=== PATIENT | female | born 1955 | race Hispanic/Latino ===

== ENCOUNTER 2016-08-14 23:37 | Inpatient (IN) | payer MEDICARE ==
[2016-08-14 23:56] VITALS: BMI 38.9
[2016-08-15] MEDS: Linezolid 600 mg in D5W 300 ml 300 ML IVPB SCH ×2 (05:25→17:07)
[2016-08-15] MEDS: Levothyroxine 100 MCG TAB PO SCH (05:58)
[2016-08-15 08:54] VITALS: RESP 20
[2016-08-15] MEDS: Acetaminophen-Codeine 300/30 mg Tab PO PRN ×2 (08:54→19:54)
[2016-08-15] MEDS: Lactobacillus Acidophilus 500 MU Cap PO SCH ×2 (08:55→17:05)
[2016-08-15] MEDS: Enoxaparin 40 mg Syringe SC SCH (08:56)
[2016-08-15] MEDS: Ergocalciferol 50,000 Intl Units Cap PO SCH (08:57)
[2016-08-15] MEDS ORDERED: Patient's Own Med (Ferrous Sulfate [Feosol] 324 MG) PO SCH (09:00)
--- NOTE | 2016-08-15 19:39 | CP.PCM.HP ---
History of Present Illness - History of Present Illness History of Present Illness: 61yo female hx lupus, sever OA, bilateral knee replacements . She presents in ER with c/o new pain to left knee, inability to rise from bed, states had acute injury 2 days ago to left knee attempting to ascend her basement stairs. States did not fall but twisted knee and now cannot fully actively extend leg to arise from seated position. Taking over the counter non steroidal at home without relief. Uses walker at home but she is unable to arise from bed even with walker. She noticed a progressive edema and erythema in both knee but worse in the rt. Subsequent test reveled a fx of the t patella and possible septic arthritis. to SNF to continue present care. Present on Admission - Present on Admission Any Indicators Present on Admission: No Review of Systems - Constitutional Constitutional: As Per HPI - EENT Eyes: As Per HPI Nose/Mouth/Throat: As Per HPI - Cardiovascular Cardiovascular: As Per HPI - Respiratory Respiratory: As Per HPI - Gastrointestinal Gastrointestinal: As Per HPI - Musculoskeletal Musculoskeletal: As Per HPI - Integumentary Integumentary: As Per HPI - Neurological Neurological: As Per HPI - Psychiatric Psychiatric: As Per HPI Past Patient History - Infectious Disease Hx of Infectious Diseases: None - Past Medical History & Family History Past Medical History?: Yes - Past Social History Smoking Status: Never Smoked - CARDIAC Hx Hypercholesterolemia: Yes Hx Hypertension: Yes - PULMONARY Hx Chronic Obstructive Pulmonary Disease (COPD): Yes - NEUROLOGICAL Hx Neurological Disorder: Yes Other/Comment: NUMBNESS.TINGLING TOES - HEENT Hx HEENT Problems: Yes Hx Cataracts: Yes - RENAL Hx Chronic Kidney Disease: Yes Hx Kidney Stones: Yes - ENDOCRINE/METABOLIC Hx Hypothyroidism: Yes - HEMATOLOGICAL/ONCOLOGICAL Hx Anemia: Yes Hx Human Immunodeficiency Virus (HIV): No - INTEGUMENTARY Hx Dermatological Problems: No - MUSCULOSKELETAL/RHEUMATOLOGICAL Hx Arthritis: Yes Hx Rheumatoid Arthritis: Yes - GASTROINTESTINAL Hx Gastritis: Yes - GENITOURINARY/GYNECOLOGICAL Hx Genitourinary Disorders: No - PSYCHIATRIC Hx Psychophysiologic Disorder: No Hx Substance Use: No - SURGICAL HISTORY Hx Surgeries: Yes Hx Herniorrhaphy: Yes (UMBERICAL HERNIAX2) Hx Joint Replacement: Yes (TOTAL LEFT KNEE REPLACEMENT 06/03/2014) Other/Comment: THYROIDECTOMY 2003. LASER SX FOR KIDNEY STONE - ANESTHESIA Hx Anesthesia: Yes Hx Anesthesia Reactions: No Hx Malignant Hyperthermia: No Has any member of the family had a problem w/ anesthesia?: No Meds Allergies/Adverse Reactions: Allergies Allergy/AdvReac Type Severity Reaction Status Date / Time prednisone Allergy SWELLING Verified 04/17/16 15:40 Physical Exam - Head Exam Head Exam: ATRAUMATIC, NORMAL INSPECTION. absent: NORMOCEPHALIC - Eye Exam Eye Exam: Normal appearance - ENT Exam ENT Exam: Mucous Membranes Moist - Neck Exam Neck exam: Positive for: Normal Inspection - Respiratory Exam Respiratory Exam: Clear to Auscultation Bilateral - Cardiovascular Exam Cardiovascular Exam: REGULAR RHYTHM, +S1, +S2 - GI/Abdominal Exam GI & Abdominal Exam: Normal Bowel Sounds - Extremities Exam Extremities exam: Positive for: normal inspection - Neurological Exam Neurological exam: Alert, CN II-XII Intact, Normal Gait, Oriented x3 - Psychiatric Exam Psychiatric exam: Normal Mood Results - Vital Signs Recent Vital Signs: Last Vital Signs Temp 98.5 F 08/15/16 16:03 Pulse 91 H 08/15/16 16:03 Resp 20 08/15/16 16:03 BP 135/68 08/15/16 16:03 Pulse Ox 96 08/15/16 16:03 Assessment & Plan (1) Fracture, patella Status: Acute (2) Septic arthritis Status: Acute (3) Hypothyroid Status: Chronic (4) Osteoarthritis Status: Chronic (5) S/P knee replacement Status: Chronic (6) SLE (systemic lupus erythematosus) Status: Chronic
[2016-08-16] MEDS: Levothyroxine 100 MCG TAB PO SCH (06:15)
[2016-08-16] MEDS: Linezolid 600 mg in D5W 300 ml 300 ML IVPB SCH ×2 (06:17→17:14)
[2016-08-16 07:56] LABS: HEMATOCRIT 36.2 % (34.0-47.0); MEAN CELL VOLUME 93.2 fl (81.0-99.0); MEAN CORPUSCULAR HEMOGLOBIN 31.5 pg (27.0-31.0); MEAN CORPUSCULAR HGB CONC 33.8 g/dL (33.0-37.0); RED CELL DISTRIBUTION WIDTH 12.9 % (11.5-14.5); WHITE BLOOD COUNT 3.7 K/uL (4.8-10.8)
[2016-08-16 08:14] LABS: BLOOD UREA NITROGEN 18 mg/dl (7-17); CALCIUM 8.8 mg/dL (8.4-10.2); CARBON DIOXIDE 26 mmol/L (22-30); CHLORIDE 100 mmol/L (98-107); GFR AFRICAN-AMERICAN > 60; GLUCOSE,RANDOM 105 mg/dL (65-105); POTASSIUM 4.1 MMOL/L (3.6-5.0); SODIUM 142 mmol/l (132-148)
[2016-08-16] MEDS: Lactobacillus Acidophilus 500 MU Cap PO SCH ×2 (08:53→17:13)
[2016-08-16] MEDS: Enoxaparin 40 mg Syringe SC SCH (08:55)
[2016-08-16] MEDS: Acetaminophen-Codeine 300/30 mg Tab PO PRN (10:05)
--- NOTE | 2016-08-16 12:56 | CP.PCM.PN ---
Subjective - Date & Time of Evaluation Date of Evaluation: 08/16/16 Time of Evaluation: 12:56 - Subjective Subjective: Comfortable Objective - Vital Signs/Intake and Output Vital Signs (last 24 hours): Temp Pulse Resp BP Pulse Ox 97.2 F L 67 20 122/57 L 96 08/16/16 07:50 08/16/16 08:53 08/16/16 07:50 08/16/16 08:53 08/16/16 07:50 - Medications Medications: Current Medications Acetaminophen/Codeine Phosphate (Tylenol/Codeine 300 Mg/30 Mg) 1 tab PO Q6 PRN PRN Reason: Pain, moderate (4-7) Last Admin: 08/16/16 10:05 Dose: 1 tab Amlodipine Besylate (Norvasc) 2.5 mg PO DAILY [facility] Last Admin: 08/16/16 08:53 Dose: 2.5 mg Artificial Tears (Artificial Tears) 2 drop OU Q4 PRN PRN Reason: Dry eyes Aspirin (Ecotrin) 81 mg PO DAILY [facility] Last Admin: 08/16/16 08:53 Dose: 81 mg Enoxaparin Sodium (Lovenox) 40 mg SC DAILY [facility] PRN Reason: Protocol Last Admin: 08/16/16 08:55 Dose: 40 mg Ergocalciferol (Drisdol 50,000 Intl Units Cap) 1 cap PO QWK [facility] Last Admin: 08/15/16 08:57 Dose: 1 cap Ferrous Sulfate (Feosol) 325 mg PO TID [facility] Last Admin: 08/16/16 12:22 Dose: 325 mg Folic Acid (Folic Acid) 1 mg PO DAILY [facility] Last Admin: 08/16/16 08:53 Dose: 1 mg Hydroxychloroquine Sulfate (Plaquenil) 200 mg PO DAILY [facility] Last Admin: 08/16/16 08:53 Dose: 200 mg Hydroxyzine HCl (Atarax) 10 mg PO DAILY [facility] Last Admin: 08/16/16 08:52 Dose: 10 mg Linezolid (Zyvox 600mg/300ml D5w) 300 mls @ 300 mls/hr IVPB Q12@0500,1700 [facility] Last Admin: 08/16/16 06:17 Dose: 300 mls/hr Lactobacillus Acidophilus (Bacid Acidophilus) 1 cap PO BID [facility] Last Admin: 08/16/16 08:53 Dose: 1 cap Levothyroxine Sodium (Synthroid) 100 mcg PO DAILY@0630 [facility] Last Admin: 08/16/16 06:15 Dose: 100 mcg Nystatin/Triamcinolone Acetonide (Mycolog Ii Oint) 1 applic TOP TID [facility] Thiamine HCl (Vitamin B1 Tab) 100 mg PO DAILY [facility] Last Admin: 08/16/16 08:53 Dose: 100 mg - Labs Labs: 08/16/16 05:30 08/16/16 05:30 - Constitutional Appears: Chronically Ill - Head Exam Head Exam: ATRAUMATIC, NORMAL INSPECTION, NORMOCEPHALIC - Eye Exam Eye Exam: Normal appearance - ENT Exam ENT Exam: Mucous Membranes Moist - Respiratory Exam Respiratory Exam: Clear to Ausculation Bilateral - Cardiovascular Exam Cardiovascular Exam: REGULAR RHYTHM, +S1, +S2 - Extremities Exam Additional comments: soft cast in place. - Neurological Exam Neurological Exam: Alert, Awake, CN II-XII Intact, Oriented x3 - Psychiatric Exam Psychiatric exam: Normal Affect Assessment and Plan (1) Fracture, patella Status: Acute (2) Septic arthritis Status: Acute (3) Hypothyroid Status: Chronic (4) Osteoarthritis Status: Chronic (5) S/P knee replacement Status: Chronic (6) SLE (systemic lupus erythematosus) Status: Chronic - Assessment and Plan (Free Text) Plan: Continue present rx.
[2016-08-16] MEDS: Artificial Tears Opht Soln OU PRN (15:02)
[2016-08-16] MEDS: Mycolog II OINT TOP SCH ×2 (15:02→17:23)
[2016-08-17] MEDS: Linezolid 600 mg in D5W 300 ml 300 ML IVPB SCH ×2 (05:20→16:50)
[2016-08-17] MEDS: Levothyroxine 100 MCG TAB PO SCH (06:40)
[2016-08-17] MEDS: Lactobacillus Acidophilus 500 MU Cap PO SCH ×2 (08:11→16:51)
[2016-08-17] MEDS: Mycolog II OINT TOP SCH ×3 (08:12→16:51)
[2016-08-17] MEDS: Enoxaparin 40 mg Syringe SC SCH (08:12)
--- NOTE | 2016-08-17 12:36 | CP.PCM.CON ---
History of Present Illness - History of Present Illness History of Present Illness: patient is a 61 year old female admitted for subacute rehab , status post right arthroscopy, with previous history of bilateral knee replacement and lupus. Patient apparently presented with pain and odema, and difficulty in ambulation Review of Systems - Musculoskeletal Musculoskeletal: Abnormal Gait, Arthralgias, Joint Swelling, Limited Range of Motion, Muscle Weakness Past Patient History - Infectious Disease Hx of Infectious Diseases: None - Past Medical History & Family History Past Medical History?: Yes - Past Social History Smoking Status: Never Smoked - CARDIAC Hx Hypercholesterolemia: Yes Hx Hypertension: Yes - PULMONARY Hx Chronic Obstructive Pulmonary Disease (COPD): Yes - NEUROLOGICAL Hx Neurological Disorder: Yes Other/Comment: NUMBNESS.TINGLING TOES - HEENT Hx HEENT Problems: Yes Hx Cataracts: Yes - RENAL Hx Chronic Kidney Disease: Yes Hx Kidney Stones: Yes - ENDOCRINE/METABOLIC Hx Hypothyroidism: Yes - HEMATOLOGICAL/ONCOLOGICAL Hx Anemia: Yes Hx Human Immunodeficiency Virus (HIV): No - INTEGUMENTARY Hx Dermatological Problems: No - MUSCULOSKELETAL/RHEUMATOLOGICAL Hx Arthritis: Yes Hx Rheumatoid Arthritis: Yes - GASTROINTESTINAL Hx Gastritis: Yes - GENITOURINARY/GYNECOLOGICAL Hx Genitourinary Disorders: No - PSYCHIATRIC Hx Psychophysiologic Disorder: No Hx Substance Use: No - SURGICAL HISTORY Hx Surgeries: Yes Hx Herniorrhaphy: Yes (UMBERICAL HERNIAX2) Hx Joint Replacement: Yes (TOTAL LEFT KNEE REPLACEMENT 06/03/2014) Other/Comment: THYROIDECTOMY 2002. LASER SX FOR KIDNEY STONE - ANESTHESIA Hx Anesthesia: Yes Hx Anesthesia Reactions: No Hx Malignant Hyperthermia: No Has any member of the family had a problem w/ anesthesia?: No Meds Allergies/Adverse Reactions: Allergies Allergy/AdvReac Type Severity Reaction Status Date / Time prednisone Allergy SWELLING Verified 04/17/16 15:40 - Medications Medications: Current Medications Acetaminophen/Codeine Phosphate (Tylenol/Codeine 300 Mg/30 Mg) 1 tab PO Q6 PRN PRN Reason: Pain, moderate (4-7) Last Admin: 08/16/16 10:05 Dose: 1 tab Amlodipine Besylate (Norvasc) 2.5 mg PO DAILY [facility] Last Admin: 08/17/16 08:12 Dose: 2.5 mg Artificial Tears (Artificial Tears) 2 drop OU Q4 PRN PRN Reason: Dry eyes Last Admin: 08/16/16 15:02 Dose: 2 unit Aspirin (Ecotrin) 81 mg PO DAILY [facility] Last Admin: 08/17/16 08:11 Dose: 81 mg Enoxaparin Sodium (Lovenox) 40 mg SC DAILY [facility] PRN Reason: Protocol Last Admin: 08/17/16 08:12 Dose: 40 mg Ergocalciferol (Drisdol 50,000 Intl Units Cap) 1 cap PO QWK [facility] Last Admin: 08/15/16 08:57 Dose: 1 cap Ferrous Sulfate (Feosol) 325 mg PO TID [facility] Last Admin: 08/17/16 08:11 Dose: 325 mg Folic Acid (Folic Acid) 1 mg PO DAILY [facility] Last Admin: 08/17/16 08:12 Dose: 1 mg Hydroxychloroquine Sulfate (Plaquenil) 200 mg PO DAILY [facility] Last Admin: 08/17/16 08:13 Dose: 200 mg Hydroxyzine HCl (Atarax) 10 mg PO DAILY [facility] Last Admin: 08/17/16 08:11 Dose: 10 mg Linezolid (Zyvox 600mg/300ml D5w) 300 mls @ 300 mls/hr IVPB Q12@0500,1700 [facility] Last Admin: 08/17/16 05:20 Dose: 300 mls/hr Lactobacillus Acidophilus (Bacid Acidophilus) 1 cap PO BID [facility] Last Admin: 08/17/16 08:11 Dose: 1 cap Levothyroxine Sodium (Synthroid) 100 mcg PO DAILY@0630 [facility] Last Admin: 08/17/16 06:40 Dose: 100 mcg Nystatin/Triamcinolone Acetonide (Mycolog Ii Oint) 1 applic TOP TID [facility] Last Admin: 08/17/16 08:12 Dose: 1 applic Thiamine HCl (Vitamin B1 Tab) 100 mg PO DAILY [facility] Last Admin: 08/17/16 08:13 Dose: 100 mg Physical Exam - Head Exam Head Exam: ATRAUMATIC, NORMAL INSPECTION - Eye Exam Eye Exam: EOMI, Normal appearance - ENT Exam ENT Exam: Mucous Membranes Moist, Normal Exam - Respiratory Exam Respiratory Exam: NORMAL BREATHING PATTERN - Cardiovascular Exam Cardiovascular Exam: REGULAR RHYTHM - GI/Abdominal Exam GI & Abdominal Exam: Normal Bowel Sounds - Exam External exam: NORMAL EXTERNAL EXAM - Extremities Exam Extremities exam: Positive for: normal inspection Additional comments: limited range of motion and strength of right leg sensation grossly intact - Back Exam Back exam: NORMAL INSPECTION - Neurological Exam Neurological exam: Alert, CN II-XII Intact, Reflexes Normal - Psychiatric Exam Psychiatric exam: Normal Affect, Normal Mood - Skin Skin Exam: Dry, Warm Results - Vital Signs Recent Vital Signs: Last Vital Signs Temp 98.2 F 08/17/16 08:20 Pulse 70 08/17/16 08:20 Resp 20 08/17/16 08:20 BP 120/78 08/17/16 08:20 Pulse Ox 100 08/17/16 08:20 - Labs Result Diagrams: 08/16/16 05:30 08/16/16 05:30 Assessment & Plan (1) DVT (deep venous thrombosis) Status: Acute (2) Fracture, patella Assessment and Plan: patient status post right sided arthroscopy, tricompartmental synovetomy for subacute rehab program. precautions of TTWB and additional precautions as per Orthopedic physician. Monitor skin, and pain level. Goals for Modified Independent eventually. patient for physical and occupational therapy program Status: Acute (3) Knee injury Status: Acute (4) Septic arthritis Status: Acute (5) Fever and chills Status: Acute (6) UTI (urinary tract infection) Status: Acute (7) Hypothyroid Status: Chronic (8) Osteoarthritis Status: Chronic
[2016-08-17] MEDS: Acetaminophen-Codeine 300/30 mg Tab PO PRN (22:20)
[2016-08-18] MEDS: Linezolid 600 mg in D5W 300 ml 300 ML IVPB SCH ×2 (04:49→17:18)
[2016-08-18] MEDS: Levothyroxine 100 MCG TAB PO SCH (05:47)
[2016-08-18] MEDS: Acetaminophen-Codeine 300/30 mg Tab PO PRN ×2 (08:51→21:26)
[2016-08-18] MEDS: Enoxaparin 40 mg Syringe SC SCH (08:51)
[2016-08-18] MEDS: Mycolog II OINT TOP SCH ×3 (08:53→17:18)
[2016-08-18] MEDS: Lactobacillus Acidophilus 500 MU Cap PO SCH ×2 (08:56→17:17)
[2016-08-18] MEDS: Artificial Tears Opht Soln OU PRN (12:33)
--- NOTE | 2016-08-18 14:35 | CP.PCM.PN ---
Subjective - Date & Time of Evaluation Date of Evaluation: 08/18/16 Time of Evaluation: 12:00 - Subjective Subjective: patient no knee pain, mild right shoulder pain Objective - Vital Signs/Intake and Output Vital Signs (last 24 hours): Temp Pulse Resp BP Pulse Ox 97.9 F 60 20 150/75 99 08/18/16 08:33 08/18/16 08:52 08/18/16 08:33 08/18/16 08:52 08/18/16 08:33 - Medications Medications: Current Medications Acetaminophen/Codeine Phosphate (Tylenol/Codeine 300 Mg/30 Mg) 1 tab PO Q6 PRN PRN Reason: Pain, moderate (4-7) Last Admin: 08/18/16 08:51 Dose: 1 tab Amlodipine Besylate (Norvasc) 2.5 mg PO DAILY [facility] Last Admin: 08/18/16 08:52 Dose: 2.5 mg Artificial Tears (Artificial Tears) 2 drop OU Q4 PRN PRN Reason: Dry eyes Last Admin: 08/18/16 12:33 Dose: 2 unit Aspirin (Ecotrin) 81 mg PO DAILY [facility] Last Admin: 08/18/16 08:52 Dose: 81 mg Enoxaparin Sodium (Lovenox) 40 mg SC DAILY [facility] PRN Reason: Protocol Last Admin: 08/18/16 08:51 Dose: 40 mg Ergocalciferol (Drisdol 50,000 Intl Units Cap) 1 cap PO QWK [facility] Last Admin: 08/15/16 08:57 Dose: 1 cap Ferrous Sulfate (Feosol) 325 mg PO TID [facility] Last Admin: 08/18/16 12:28 Dose: 325 mg Folic Acid (Folic Acid) 1 mg PO DAILY [facility] Last Admin: 08/18/16 08:52 Dose: 1 mg Hydroxychloroquine Sulfate (Plaquenil) 200 mg PO DAILY [facility] Last Admin: 08/18/16 08:52 Dose: 200 mg Hydroxyzine HCl (Atarax) 10 mg PO DAILY [facility] Last Admin: 08/18/16 08:52 Dose: 10 mg Linezolid (Zyvox 600mg/300ml D5w) 300 mls @ 300 mls/hr IVPB Q12@0500,1700 [facility] Last Admin: 08/18/16 04:49 Dose: 300 mls/hr Lactobacillus Acidophilus (Bacid Acidophilus) 1 cap PO BID [facility] Last Admin: 08/18/16 08:56 Dose: 1 cap Levothyroxine Sodium (Synthroid) 100 mcg PO DAILY@0630 [facility] Last Admin: 08/18/16 05:47 Dose: 100 mcg Nystatin/Triamcinolone Acetonide (Mycolog Ii Oint) 1 applic TOP TID [facility] Last Admin: 08/18/16 08:53 Dose: 1 applic Thiamine HCl (Vitamin B1 Tab) 100 mg PO DAILY [facility] Last Admin: 08/18/16 08:52 Dose: 100 mg - Labs Labs: 08/16/16 05:30 08/16/16 05:30 - Head Exam Head Exam: ATRAUMATIC, NORMAL INSPECTION, NORMOCEPHALIC - Eye Exam Eye Exam: EOMI, Normal appearance, PERRL Pupil Exam: NORMAL ACCOMODATION - ENT Exam ENT Exam: Mucous Membranes Moist, Normal Exam - Respiratory Exam Respiratory Exam: NORMAL BREATHING PATTERN - Cardiovascular Exam Cardiovascular Exam: REGULAR RHYTHM - GI/Abdominal Exam GI & Abdominal Exam: Normal Bowel Sounds - Exam External exam: NORMAL EXTERNAL EXAM - Extremities Exam Extremities Exam: Normal Capillary Refill - Back Exam Back Exam: NORMAL INSPECTION - Neurological Exam Neurological Exam: Alert, Awake Neuro motor strength exam: Left Upper Extremity: 4, Right Upper Extremity: 4, Left Lower Extremity: 4, Right Lower Extremity: 3 - Psychiatric Exam Psychiatric exam: Normal Affect, Normal Mood - Skin Skin Exam: Dry, Intact, Warm Additional comments: right knee healing with sutures Assessment and Plan (1) DVT (deep venous thrombosis) Status: Acute (2) Fracture, patella Assessment & Plan: status post arthroscopy sutures healing in right knee consider cleaning with normal saline and dry dressing Lidoderm patch for right shoulder Status: Acute (3) Knee injury Status: Acute (4) Septic arthritis Status: Acute (5) Fever and chills Status: Acute (6) UTI (urinary tract infection) Status: Acute (7) Hypothyroid Status: Chronic (8) Osteoarthritis Status: Chronic
--- NOTE | 2016-08-18 15:04 | CP.PCM.PN ---
Subjective - Date & Time of Evaluation Date of Evaluation: 08/18/16 Time of Evaluation: 15:04 - Subjective Subjective: Comfortable. Objective - Vital Signs/Intake and Output Vital Signs (last 24 hours): Temp Pulse Resp BP Pulse Ox 97.9 F 60 20 150/75 99 08/18/16 08:33 08/18/16 08:52 08/18/16 08:33 08/18/16 08:52 08/18/16 08:33 - Medications Medications: Current Medications Acetaminophen/Codeine Phosphate (Tylenol/Codeine 300 Mg/30 Mg) 1 tab PO Q6 PRN PRN Reason: Pain, moderate (4-7) Last Admin: 08/18/16 08:51 Dose: 1 tab Amlodipine Besylate (Norvasc) 2.5 mg PO DAILY [facility] Last Admin: 08/18/16 08:52 Dose: 2.5 mg Artificial Tears (Artificial Tears) 2 drop OU Q4 PRN PRN Reason: Dry eyes Last Admin: 08/18/16 12:33 Dose: 2 unit Aspirin (Ecotrin) 81 mg PO DAILY [facility] Last Admin: 08/18/16 08:52 Dose: 81 mg Enoxaparin Sodium (Lovenox) 40 mg SC DAILY [facility] PRN Reason: Protocol Last Admin: 08/18/16 08:51 Dose: 40 mg Ergocalciferol (Drisdol 50,000 Intl Units Cap) 1 cap PO QWK [facility] Last Admin: 08/15/16 08:57 Dose: 1 cap Ferrous Sulfate (Feosol) 325 mg PO TID [facility] Last Admin: 08/18/16 12:28 Dose: 325 mg Folic Acid (Folic Acid) 1 mg PO DAILY [facility] Last Admin: 08/18/16 08:52 Dose: 1 mg Hydroxychloroquine Sulfate (Plaquenil) 200 mg PO DAILY [facility] Last Admin: 08/18/16 08:52 Dose: 200 mg Hydroxyzine HCl (Atarax) 10 mg PO DAILY [facility] Last Admin: 08/18/16 08:52 Dose: 10 mg Linezolid (Zyvox 600mg/300ml D5w) 300 mls @ 300 mls/hr IVPB Q12@0500,1700 [facility] Last Admin: 08/18/16 04:49 Dose: 300 mls/hr Lactobacillus Acidophilus (Bacid Acidophilus) 1 cap PO BID [facility] Last Admin: 08/18/16 08:56 Dose: 1 cap Levothyroxine Sodium (Synthroid) 100 mcg PO DAILY@0630 [facility] Last Admin: 08/18/16 05:47 Dose: 100 mcg Lidocaine (Lidoderm) 1 ea TD DAILY [facility] Nystatin/Triamcinolone Acetonide (Mycolog Ii Oint) 1 applic TOP TID [facility] Last Admin: 08/18/16 08:53 Dose: 1 applic Thiamine HCl (Vitamin B1 Tab) 100 mg PO DAILY [facility] Last Admin: 08/18/16 08:52 Dose: 100 mg - Labs Labs: 08/16/16 05:30 08/16/16 05:30 - Constitutional Appears: Chronically Ill - Head Exam Head Exam: ATRAUMATIC, NORMAL INSPECTION, NORMOCEPHALIC - Eye Exam Eye Exam: Normal appearance - ENT Exam ENT Exam: Mucous Membranes Moist - Neck Exam Neck Exam: Full ROM - Respiratory Exam Respiratory Exam: Clear to Ausculation Bilateral - Cardiovascular Exam Cardiovascular Exam: REGULAR RHYTHM, +S1, +S2 - GI/Abdominal Exam GI & Abdominal Exam: Normal Bowel Sounds - Neurological Exam Neurological Exam: Alert, Awake, Oriented x3 - Psychiatric Exam Psychiatric exam: Normal Affect Assessment and Plan (1) Fracture, patella Status: Acute (2) Septic arthritis Status: Acute (3) Hypothyroid Status: Chronic (4) Osteoarthritis Status: Chronic (5) S/P knee replacement Status: Chronic (6) SLE (systemic lupus erythematosus) Status: Chronic - Assessment and Plan (Free Text) Plan: Continue present rx.
[2016-08-19] MEDS: Linezolid 600 mg in D5W 300 ml 300 ML IVPB SCH (04:59)
[2016-08-19] MEDS: Levothyroxine 100 MCG TAB PO SCH (06:39)
[2016-08-19] MEDS: Lidocaine 5% Patch TD SCH (08:43)
[2016-08-19] MEDS: Enoxaparin 40 mg Syringe SC SCH (08:44)
[2016-08-19] MEDS: Mycolog II OINT TOP SCH ×2 (08:45→12:17)
[2016-08-19] MEDS: Lactobacillus Acidophilus 500 MU Cap PO SCH ×2 (08:45→16:59)
[2016-08-19] MEDS: Acetaminophen-Codeine 300/30 mg Tab PO PRN ×2 (08:48→22:13)
--- NOTE | 2016-08-19 12:26 | CP.PCM.PN ---
Subjective - Date & Time of Evaluation Date of Evaluation: 08/19/16 Time of Evaluation: 14:18 - Subjective Subjective: No new c/o Objective - Vital Signs/Intake and Output Vital Signs (last 24 hours): Temp Pulse Resp BP Pulse Ox 97.0 F L 75 20 147/78 100 08/19/16 08:20 08/19/16 08:44 08/19/16 08:20 08/19/16 08:44 08/19/16 08:20 - Medications Medications: Current Medications Acetaminophen/Codeine Phosphate (Tylenol/Codeine 300 Mg/30 Mg) 1 tab PO Q6 PRN PRN Reason: Pain, moderate (4-7) Last Admin: 08/19/16 08:48 Dose: 1 tab Amlodipine Besylate (Norvasc) 2.5 mg PO DAILY [facility] Last Admin: 08/19/16 08:44 Dose: 2.5 mg Artificial Tears (Artificial Tears) 2 drop OU Q4 PRN PRN Reason: Dry eyes Last Admin: 08/18/16 12:33 Dose: 2 unit Aspirin (Ecotrin) 81 mg PO DAILY [facility] Last Admin: 08/19/16 08:44 Dose: 81 mg Enoxaparin Sodium (Lovenox) 40 mg SC DAILY [facility] PRN Reason: Protocol Last Admin: 08/19/16 08:44 Dose: 40 mg Ergocalciferol (Drisdol 50,000 Intl Units Cap) 1 cap PO QWK [facility] Last Admin: 08/15/16 08:57 Dose: 1 cap Ferrous Sulfate (Feosol) 325 mg PO TID [facility] Last Admin: 08/19/16 12:17 Dose: 325 mg Folic Acid (Folic Acid) 1 mg PO DAILY [facility] Last Admin: 08/19/16 08:44 Dose: 1 mg Hydroxychloroquine Sulfate (Plaquenil) 200 mg PO DAILY [facility] Last Admin: 08/19/16 08:44 Dose: 200 mg Hydroxyzine HCl (Atarax) 10 mg PO DAILY [facility] Last Admin: 08/19/16 08:45 Dose: 10 mg Linezolid (Zyvox 600mg/300ml D5w) 300 mls @ 300 mls/hr IVPB Q12@0500,1700 [facility] Last Admin: 08/19/16 04:59 Dose: 300 mls/hr Lactobacillus Acidophilus (Bacid Acidophilus) 1 cap PO BID [facility] Last Admin: 08/19/16 08:45 Dose: 1 cap Levothyroxine Sodium (Synthroid) 100 mcg PO DAILY@0630 [facility] Last Admin: 08/19/16 06:39 Dose: 100 mcg Lidocaine (Lidoderm) 1 ea TD DAILY [facility] Last Admin: 08/19/16 08:43 Dose: 1 ea Nystatin/Triamcinolone Acetonide (Mycolog Ii Oint) 1 applic TOP TID [facility] Last Admin: 08/19/16 12:17 Dose: 1 applic Thiamine HCl (Vitamin B1 Tab) 100 mg PO DAILY [facility] Last Admin: 08/19/16 08:44 Dose: 100 mg - Labs Labs: 08/16/16 05:30 08/16/16 05:30 - Constitutional Appears: Chronically Ill - Head Exam Head Exam: ATRAUMATIC, NORMAL INSPECTION, NORMOCEPHALIC - Eye Exam Eye Exam: Normal appearance - ENT Exam ENT Exam: Mucous Membranes Moist - Neck Exam Neck Exam: Full ROM - Respiratory Exam Respiratory Exam: Clear to Ausculation Bilateral - Cardiovascular Exam Cardiovascular Exam: REGULAR RHYTHM, +S1, +S2 - GI/Abdominal Exam GI & Abdominal Exam: Normal Bowel Sounds - Extremities Exam Additional comments: no new changes - Neurological Exam Neurological Exam: Alert, Awake, Oriented x3 - Psychiatric Exam Psychiatric exam: Normal Affect - Skin Skin Exam: Normal Color Assessment and Plan (1) Fracture, patella Status: Acute (2) Septic arthritis Status: Acute (3) Hypothyroid Status: Chronic (4) Osteoarthritis Status: Chronic (5) S/P knee replacement Status: Chronic (6) SLE (systemic lupus erythematosus) Status: Chronic - Assessment and Plan (Free Text) Plan: Continue present rx
--- NOTE | 2016-08-19 14:14 | CP.PCM.PN ---
Subjective - Date & Time of Evaluation Date of Evaluation: 08/19/16 Time of Evaluation: 13:00 - Subjective Subjective: no acute complaints of any pain in the leg Objective - Vital Signs/Intake and Output Vital Signs (last 24 hours): Temp Pulse Resp BP Pulse Ox 97.0 F L 75 20 147/78 100 08/19/16 08:20 08/19/16 08:44 08/19/16 08:20 08/19/16 08:44 08/19/16 08:20 - Medications Medications: Current Medications Acetaminophen/Codeine Phosphate (Tylenol/Codeine 300 Mg/30 Mg) 1 tab PO Q6 PRN PRN Reason: Pain, moderate (4-7) Last Admin: 08/19/16 08:48 Dose: 1 tab Amlodipine Besylate (Norvasc) 2.5 mg PO DAILY [facility] Last Admin: 08/19/16 08:44 Dose: 2.5 mg Artificial Tears (Artificial Tears) 2 drop OU Q4 PRN PRN Reason: Dry eyes Last Admin: 08/18/16 12:33 Dose: 2 unit Aspirin (Ecotrin) 81 mg PO DAILY [facility] Last Admin: 08/19/16 08:44 Dose: 81 mg Enoxaparin Sodium (Lovenox) 40 mg SC DAILY [facility] PRN Reason: Protocol Last Admin: 08/19/16 08:44 Dose: 40 mg Ergocalciferol (Drisdol 50,000 Intl Units Cap) 1 cap PO QWK [facility] Last Admin: 08/15/16 08:57 Dose: 1 cap Ferrous Sulfate (Feosol) 325 mg PO TID [facility] Last Admin: 08/19/16 12:17 Dose: 325 mg Folic Acid (Folic Acid) 1 mg PO DAILY [facility] Last Admin: 08/19/16 08:44 Dose: 1 mg Hydroxychloroquine Sulfate (Plaquenil) 200 mg PO DAILY [facility] Last Admin: 08/19/16 08:44 Dose: 200 mg Hydroxyzine HCl (Atarax) 10 mg PO DAILY [facility] Last Admin: 08/19/16 08:45 Dose: 10 mg Linezolid (Zyvox 600mg/300ml D5w) 300 mls @ 300 mls/hr IVPB Q12@0500,1700 [facility] Last Admin: 08/19/16 04:59 Dose: 300 mls/hr Lactobacillus Acidophilus (Bacid Acidophilus) 1 cap PO BID [facility] Last Admin: 08/19/16 08:45 Dose: 1 cap Levothyroxine Sodium (Synthroid) 100 mcg PO DAILY@0630 [facility] Last Admin: 08/19/16 06:39 Dose: 100 mcg Lidocaine (Lidoderm) 1 ea TD DAILY [facility] Last Admin: 08/19/16 08:43 Dose: 1 ea Nystatin/Triamcinolone Acetonide (Mycolog Ii Oint) 1 applic TOP TID [facility] Last Admin: 08/19/16 12:17 Dose: 1 applic Thiamine HCl (Vitamin B1 Tab) 100 mg PO DAILY [facility] Last Admin: 08/19/16 08:44 Dose: 100 mg - Labs Labs: 08/16/16 05:30 08/16/16 05:30 - Head Exam Head Exam: ATRAUMATIC, NORMAL INSPECTION, NORMOCEPHALIC - Eye Exam Eye Exam: EOMI, Normal appearance, PERRL Pupil Exam: NORMAL ACCOMODATION - ENT Exam ENT Exam: Mucous Membranes Moist, Normal Exam - Respiratory Exam Respiratory Exam: NORMAL BREATHING PATTERN - Cardiovascular Exam Cardiovascular Exam: REGULAR RHYTHM - GI/Abdominal Exam GI & Abdominal Exam: Normal Bowel Sounds - Rectal Exam Rectal Exam: NORMAL INSPECTION - Exam External exam: NORMAL EXTERNAL EXAM - Extremities Exam Extremities Exam: Normal Capillary Refill, Normal Inspection - Back Exam Back Exam: NORMAL INSPECTION - Neurological Exam Neurological Exam: Alert, Awake Neuro motor strength exam: Left Upper Extremity: 4, Right Upper Extremity: 3, Left Lower Extremity: 4, Right Lower Extremity: 4 - Psychiatric Exam Psychiatric exam: Normal Affect, Normal Mood - Skin Skin Exam: Dry, Intact, Normal Color Assessment and Plan (1) DVT (deep venous thrombosis) Status: Acute (2) Fracture, patella Assessment & Plan: knee immobilizer in place status post arthroscopy physical, occupational, rec therapy Status: Acute (3) Knee injury Status: Acute (4) Septic arthritis Status: Acute (5) Fever and chills Status: Acute (6) UTI (urinary tract infection) Status: Acute (7) Hypothyroid Status: Chronic (8) Osteoarthritis Status: Chronic
--- NOTE | 2016-08-19 14:35 | CP.PCM.PN ---
Subjective - Date & Time of Evaluation Date of Evaluation: 08/17/16 Time of Evaluation: 14:00 - Subjective Subjective: no acute complaints of pain Objective - Vital Signs/Intake and Output Vital Signs (last 24 hours): Temp Pulse Resp BP Pulse Ox 97.0 F L 75 20 147/78 100 08/19/16 08:20 08/19/16 08:44 08/19/16 08:20 08/19/16 08:44 08/19/16 08:20 - Medications Medications: Current Medications Acetaminophen/Codeine Phosphate (Tylenol/Codeine 300 Mg/30 Mg) 1 tab PO Q6 PRN PRN Reason: Pain, moderate (4-7) Last Admin: 08/19/16 08:48 Dose: 1 tab Amlodipine Besylate (Norvasc) 2.5 mg PO DAILY [facility] Last Admin: 08/19/16 08:44 Dose: 2.5 mg Artificial Tears (Artificial Tears) 2 drop OU Q4 PRN PRN Reason: Dry eyes Last Admin: 08/18/16 12:33 Dose: 2 unit Aspirin (Ecotrin) 81 mg PO DAILY [facility] Last Admin: 08/19/16 08:44 Dose: 81 mg Enoxaparin Sodium (Lovenox) 40 mg SC DAILY [facility] PRN Reason: Protocol Last Admin: 08/19/16 08:44 Dose: 40 mg Ergocalciferol (Drisdol 50,000 Intl Units Cap) 1 cap PO QWK [facility] Last Admin: 08/15/16 08:57 Dose: 1 cap Ferrous Sulfate (Feosol) 325 mg PO TID [facility] Last Admin: 08/19/16 12:17 Dose: 325 mg Folic Acid (Folic Acid) 1 mg PO DAILY [facility] Last Admin: 08/19/16 08:44 Dose: 1 mg Hydroxychloroquine Sulfate (Plaquenil) 200 mg PO DAILY [facility] Last Admin: 08/19/16 08:44 Dose: 200 mg Hydroxyzine HCl (Atarax) 10 mg PO DAILY [facility] Last Admin: 08/19/16 08:45 Dose: 10 mg Linezolid (Zyvox 600mg/300ml D5w) 300 mls @ 300 mls/hr IVPB Q12@0500,1700 [facility] Last Admin: 08/19/16 04:59 Dose: 300 mls/hr Lactobacillus Acidophilus (Bacid Acidophilus) 1 cap PO BID [facility] Last Admin: 08/19/16 08:45 Dose: 1 cap Levothyroxine Sodium (Synthroid) 100 mcg PO DAILY@0630 [facility] Last Admin: 08/19/16 06:39 Dose: 100 mcg Lidocaine (Lidoderm) 1 ea TD DAILY [facility] Last Admin: 08/19/16 08:43 Dose: 1 ea Nystatin/Triamcinolone Acetonide (Mycolog Ii Oint) 1 applic TOP TID [facility] Last Admin: 08/19/16 12:17 Dose: 1 applic Thiamine HCl (Vitamin B1 Tab) 100 mg PO DAILY [facility] Last Admin: 08/19/16 08:44 Dose: 100 mg - Labs Labs: 08/16/16 05:30 08/16/16 05:30 - Head Exam Head Exam: ATRAUMATIC, NORMAL INSPECTION, NORMOCEPHALIC - Eye Exam Eye Exam: EOMI, Normal appearance, PERRL Pupil Exam: NORMAL ACCOMODATION - ENT Exam ENT Exam: Mucous Membranes Moist, Normal Exam - Neck Exam Neck Exam: Normal Inspection - Respiratory Exam Respiratory Exam: NORMAL BREATHING PATTERN - Cardiovascular Exam Cardiovascular Exam: REGULAR RHYTHM - GI/Abdominal Exam GI & Abdominal Exam: Normal Bowel Sounds - Rectal Exam Rectal Exam: NORMAL INSPECTION - Exam External exam: NORMAL EXTERNAL EXAM - Extremities Exam Extremities Exam: Normal Capillary Refill, Normal Inspection - Back Exam Back Exam: NORMAL INSPECTION - Neurological Exam Neurological Exam: Alert, Awake Neuro motor strength exam: Left Upper Extremity: 4, Right Upper Extremity: 4, Left Lower Extremity: 4, Right Lower Extremity: 3 - Psychiatric Exam Psychiatric exam: Normal Affect, Normal Mood - Skin Skin Exam: Dry, Intact Assessment and Plan (1) DVT (deep venous thrombosis) Status: Acute (2) Fracture, patella Assessment & Plan: status post arthroscopy knee immobilizer Rom range of motion, transfers and gait training limited weight bearing monitor sutures and skin Status: Acute (3) Knee injury Status: Acute (4) Septic arthritis Status: Acute (5) Fever and chills Status: Acute (6) UTI (urinary tract infection) Status: Acute (7) Hypothyroid Status: Chronic (8) Osteoarthritis Status: Chronic
[2016-08-20] MEDS: Levothyroxine 100 MCG TAB PO SCH (06:07)
[2016-08-20 07:50] LABS: BLOOD UREA NITROGEN 18 mg/dl (7-17); CALCIUM 9.3 mg/dL (8.4-10.2); CARBON DIOXIDE 29 mmol/L (22-30); CHLORIDE 102 mmol/L (98-107); GFR AFRICAN-AMERICAN > 60; GLUCOSE,RANDOM 86 mg/dL (65-105); POTASSIUM 4.3 MMOL/L (3.6-5.0); SODIUM 143 mmol/l (132-148)
[2016-08-20 07:53] LABS: HEMATOCRIT 33.7 % (34.0-47.0); MEAN CELL VOLUME 93.2 fl (81.0-99.0); MEAN CORPUSCULAR HEMOGLOBIN 32.1 pg (27.0-31.0); MEAN CORPUSCULAR HGB CONC 34.4 g/dL (33.0-37.0); RED CELL DISTRIBUTION WIDTH 12.8 % (11.5-14.5); WHITE BLOOD COUNT 3.9 K/uL (4.8-10.8)
[2016-08-20] MEDS: Acetaminophen-Codeine 300/30 mg Tab PO PRN ×2 (09:02→21:49)
[2016-08-20] MEDS: Enoxaparin 40 mg Syringe SC SCH (09:03)
[2016-08-20] MEDS: Lactobacillus Acidophilus 500 MU Cap PO SCH ×2 (09:05→16:28)
[2016-08-20] MEDS: Mycolog II OINT TOP SCH ×3 (09:05→16:28)
[2016-08-20] MEDS: Lidocaine 5% Patch TD SCH (09:05)
--- NOTE | 2016-08-20 13:25 | CP.PCM.PN ---
Subjective - Date & Time of Evaluation Date of Evaluation: 08/20/16 Time of Evaluation: 13:25 - Subjective Subjective: No new c/o Objective - Vital Signs/Intake and Output Vital Signs (last 24 hours): Temp Pulse Resp BP Pulse Ox 96.1 F L 70 20 124/64 97 08/20/16 08:14 08/20/16 09:03 08/20/16 08:14 08/20/16 09:03 08/20/16 08:14 - Medications Medications: Current Medications Acetaminophen/Codeine Phosphate (Tylenol/Codeine 300 Mg/30 Mg) 1 tab PO Q6 PRN PRN Reason: Pain, moderate (4-7) Last Admin: 08/20/16 09:02 Dose: 1 tab Amlodipine Besylate (Norvasc) 2.5 mg PO DAILY [facility] Last Admin: 08/20/16 09:03 Dose: 2.5 mg Artificial Tears (Artificial Tears) 2 drop OU Q4 PRN PRN Reason: Dry eyes Last Admin: 08/18/16 12:33 Dose: 2 unit Aspirin (Ecotrin) 81 mg PO DAILY [facility] Last Admin: 08/20/16 09:04 Dose: 81 mg Enoxaparin Sodium (Lovenox) 40 mg SC DAILY [facility] PRN Reason: Protocol Last Admin: 08/20/16 09:03 Dose: 40 mg Ergocalciferol (Drisdol 50,000 Intl Units Cap) 1 cap PO QWK [facility] Last Admin: 08/15/16 08:57 Dose: 1 cap Ferrous Sulfate (Feosol) 325 mg PO TID [facility] Last Admin: 08/20/16 12:09 Dose: 325 mg Folic Acid (Folic Acid) 1 mg PO DAILY [facility] Last Admin: 08/20/16 09:04 Dose: 1 mg Hydroxychloroquine Sulfate (Plaquenil) 200 mg PO DAILY [facility] Last Admin: 08/20/16 09:04 Dose: 200 mg Hydroxyzine HCl (Atarax) 10 mg PO DAILY [facility] Last Admin: 08/20/16 09:05 Dose: 10 mg Lactobacillus Acidophilus (Bacid Acidophilus) 1 cap PO BID [facility] Last Admin: 08/20/16 09:05 Dose: 1 cap Levothyroxine Sodium (Synthroid) 100 mcg PO DAILY@0630 [facility] Last Admin: 08/20/16 06:07 Dose: 100 mcg Lidocaine (Lidoderm) 1 ea TD DAILY [facility] Last Admin: 08/20/16 09:05 Dose: 1 ea Nystatin/Triamcinolone Acetonide (Mycolog Ii Oint) 1 applic TOP TID [facility] Last Admin: 08/20/16 12:10 Dose: 1 applic Thiamine HCl (Vitamin B1 Tab) 100 mg PO DAILY [facility] Last Admin: 08/20/16 09:04 Dose: 100 mg - Labs Labs: 08/20/16 07:16 08/20/16 07:16 - Head Exam Head Exam: ATRAUMATIC, NORMAL INSPECTION, NORMOCEPHALIC - Eye Exam Eye Exam: Normal appearance - ENT Exam ENT Exam: Mucous Membranes Moist - Neck Exam Neck Exam: Full ROM - Respiratory Exam Respiratory Exam: Clear to Ausculation Bilateral - Cardiovascular Exam Cardiovascular Exam: REGULAR RHYTHM, +S1, +S2 - GI/Abdominal Exam GI & Abdominal Exam: Normal Bowel Sounds - Extremities Exam Additional comments: no new changes - Neurological Exam Neurological Exam: Alert, Awake, CN II-XII Intact, Oriented x3 - Psychiatric Exam Psychiatric exam: Normal Affect - Skin Skin Exam: Normal Color Assessment and Plan (1) Fracture, patella Status: Acute (2) Septic arthritis Status: Acute (3) Hypothyroid Status: Chronic (4) Osteoarthritis Status: Chronic (5) S/P knee replacement Status: Chronic (6) SLE (systemic lupus erythematosus) Status: Chronic - Assessment and Plan (Free Text) Plan: Continue present rx.
[2016-08-21] MEDS: Levothyroxine 100 MCG TAB PO SCH (05:41)
[2016-08-21] MEDS: Lidocaine 5% Patch TD SCH (08:56)
[2016-08-21] MEDS: Enoxaparin 40 mg Syringe SC SCH (08:56)
[2016-08-21] MEDS: Acetaminophen-Codeine 300/30 mg Tab PO PRN ×2 (09:03→17:50)
[2016-08-21] MEDS: Lactobacillus Acidophilus 500 MU Cap PO SCH ×2 (09:03→17:50)
[2016-08-21] MEDS: Mycolog II OINT TOP SCH ×3 (09:05→17:51)
--- NOTE | 2016-08-21 14:06 | CP.PCM.PN ---
Subjective - Date & Time of Evaluation Date of Evaluation: 08/21/16 Time of Evaluation: 14:05 - Subjective Subjective: Patient comfortable non in distress. Objective - Vital Signs/Intake and Output Vital Signs (last 24 hours): Temp Pulse Resp BP Pulse Ox 98.1 F 77 20 150/75 97 08/21/16 08:49 08/21/16 08:55 08/21/16 08:49 08/21/16 08:55 08/21/16 08:49 - Medications Medications: Current Medications Acetaminophen/Codeine Phosphate (Tylenol/Codeine 300 Mg/30 Mg) 1 tab PO Q6 PRN PRN Reason: Pain, moderate (4-7) Last Admin: 08/21/16 09:03 Dose: 1 tab Amlodipine Besylate (Norvasc) 2.5 mg PO DAILY [facility] Last Admin: 08/21/16 08:55 Dose: 2.5 mg Artificial Tears (Artificial Tears) 2 drop OU Q4 PRN PRN Reason: Dry eyes Last Admin: 08/18/16 12:33 Dose: 2 unit Aspirin (Ecotrin) 81 mg PO DAILY [facility] Last Admin: 08/21/16 08:55 Dose: 81 mg Enoxaparin Sodium (Lovenox) 40 mg SC DAILY [facility] PRN Reason: Protocol Last Admin: 08/21/16 08:56 Dose: 40 mg Ergocalciferol (Drisdol 50,000 Intl Units Cap) 1 cap PO QWK [facility] Last Admin: 08/15/16 08:57 Dose: 1 cap Ferrous Sulfate (Feosol) 325 mg PO TID [facility] Last Admin: 08/21/16 12:06 Dose: 325 mg Folic Acid (Folic Acid) 1 mg PO DAILY [facility] Last Admin: 08/21/16 08:55 Dose: 1 mg Hydroxychloroquine Sulfate (Plaquenil) 200 mg PO DAILY [facility] Last Admin: 08/21/16 08:55 Dose: 200 mg Hydroxyzine HCl (Atarax) 10 mg PO DAILY [facility] Last Admin: 08/21/16 08:55 Dose: 10 mg Lactobacillus Acidophilus (Bacid Acidophilus) 1 cap PO BID [facility] Last Admin: 08/21/16 09:03 Dose: 1 cap Levothyroxine Sodium (Synthroid) 100 mcg PO DAILY@0630 [facility] Last Admin: 08/21/16 05:41 Dose: 100 mcg Lidocaine (Lidoderm) 1 ea TD DAILY [facility] Last Admin: 08/21/16 08:56 Dose: 1 ea Nystatin/Triamcinolone Acetonide (Mycolog Ii Oint) 1 applic TOP TID [facility] Last Admin: 08/21/16 12:05 Dose: Not Given Thiamine HCl (Vitamin B1 Tab) 100 mg PO DAILY [facility] Last Admin: 08/21/16 08:55 Dose: 100 mg - Labs Labs: 08/20/16 07:16 08/20/16 07:16 - Constitutional Appears: Chronically Ill - Head Exam Head Exam: ATRAUMATIC, NORMAL INSPECTION, NORMOCEPHALIC - Eye Exam Eye Exam: Normal appearance - ENT Exam ENT Exam: Mucous Membranes Moist - Neck Exam Neck Exam: Full ROM - Respiratory Exam Respiratory Exam: Clear to Ausculation Bilateral - Cardiovascular Exam Cardiovascular Exam: REGULAR RHYTHM, +S1, +S2 - GI/Abdominal Exam GI & Abdominal Exam: Normal Bowel Sounds - Extremities Exam Additional comments: No new changes - Neurological Exam Neurological Exam: Alert, Awake, CN II-XII Intact, Oriented x3 - Psychiatric Exam Psychiatric exam: Normal Affect - Skin Skin Exam: Normal Color Assessment and Plan (1) Fracture, patella Status: Acute (2) Septic arthritis Status: Acute (3) Hypothyroid Status: Chronic (4) Osteoarthritis Status: Chronic (5) S/P knee replacement Status: Chronic (6) SLE (systemic lupus erythematosus) Status: Chronic - Assessment and Plan (Free Text) Plan: Continue present rx.
[2016-08-22] MEDS: Levothyroxine 100 MCG TAB PO SCH (05:42)
[2016-08-22] MEDS: Lactobacillus Acidophilus 500 MU Cap PO SCH ×2 (09:27→17:01)
[2016-08-22] MEDS: Acetaminophen-Codeine 300/30 mg Tab PO PRN ×2 (09:28→19:55)
[2016-08-22] MEDS: Mycolog II OINT TOP SCH ×3 (09:31→17:03)
[2016-08-22] MEDS: Lidocaine 5% Patch TD SCH (09:31)
[2016-08-22] MEDS: Enoxaparin 40 mg Syringe SC SCH (09:33)
[2016-08-22] MEDS: Artificial Tears Opht Soln OU PRN (09:34)
--- NOTE | 2016-08-22 17:04 | CP.PCM.PN ---
Subjective - Date & Time of Evaluation Date of Evaluation: 08/22/16 Time of Evaluation: 17:04 - Subjective Subjective: Comfortable Objective - Vital Signs/Intake and Output Vital Signs (last 24 hours): Temp Pulse Resp BP Pulse Ox 98.0 F 71 20 128/62 99 08/22/16 08:48 08/22/16 09:30 08/22/16 08:48 08/22/16 09:30 08/22/16 08:48 - Medications Medications: Current Medications Acetaminophen/Codeine Phosphate (Tylenol/Codeine 300 Mg/30 Mg) 1 tab PO Q6 PRN PRN Reason: Pain, moderate (4-7) Last Admin: 08/22/16 09:28 Dose: 1 tab Amlodipine Besylate (Norvasc) 2.5 mg PO DAILY [facility] Last Admin: 08/22/16 09:30 Dose: 2.5 mg Artificial Tears (Artificial Tears) 2 drop OU Q4 PRN PRN Reason: Dry eyes Last Admin: 08/22/16 09:34 Dose: 2 unit Aspirin (Ecotrin) 81 mg PO DAILY [facility] Last Admin: 08/22/16 09:33 Dose: 81 mg Enoxaparin Sodium (Lovenox) 40 mg SC DAILY [facility] PRN Reason: Protocol Last Admin: 08/22/16 09:33 Dose: 40 mg Ergocalciferol (Drisdol 50,000 Intl Units Cap) 1 cap PO QWK [facility] Last Admin: 08/15/16 08:57 Dose: 1 cap Ferrous Sulfate (Feosol) 325 mg PO TID [facility] Last Admin: 08/22/16 17:01 Dose: 325 mg Folic Acid (Folic Acid) 1 mg PO DAILY [facility] Last Admin: 08/22/16 09:30 Dose: 1 mg Hydroxychloroquine Sulfate (Plaquenil) 200 mg PO DAILY [facility] Last Admin: 08/22/16 09:30 Dose: 200 mg Hydroxyzine HCl (Atarax) 10 mg PO DAILY [facility] Last Admin: 08/22/16 09:30 Dose: 10 mg Lactobacillus Acidophilus (Bacid Acidophilus) 1 cap PO BID [facility] Last Admin: 08/22/16 17:01 Dose: 1 cap Levothyroxine Sodium (Synthroid) 100 mcg PO DAILY@0630 [facility] Last Admin: 08/22/16 05:42 Dose: 100 mcg Lidocaine (Lidoderm) 1 ea TD DAILY [facility] Last Admin: 08/22/16 09:31 Dose: 1 ea Nystatin/Triamcinolone Acetonide (Mycolog Ii Oint) 1 applic TOP TID [facility] Last Admin: 08/22/16 17:03 Dose: 1 applic Thiamine HCl (Vitamin B1 Tab) 100 mg PO DAILY [facility] Last Admin: 08/22/16 09:30 Dose: 100 mg - Labs Labs: 08/20/16 07:16 08/20/16 07:16 - Constitutional Appears: Chronically Ill - Head Exam Head Exam: ATRAUMATIC, NORMAL INSPECTION, NORMOCEPHALIC - Eye Exam Eye Exam: Normal appearance Pupil Exam: NORMAL ACCOMODATION - ENT Exam ENT Exam: Mucous Membranes Moist - Respiratory Exam Respiratory Exam: Clear to Ausculation Bilateral - Cardiovascular Exam Cardiovascular Exam: REGULAR RHYTHM, +S1, +S2 - GI/Abdominal Exam GI & Abdominal Exam: Soft, Normal Bowel Sounds - Extremities Exam Extremities Exam: Full ROM - Neurological Exam Neurological Exam: Alert, Awake, CN II-XII Intact, Oriented x3 - Psychiatric Exam Psychiatric exam: Normal Affect - Skin Skin Exam: Normal Color Assessment and Plan (1) Fracture, patella Status: Acute (2) Septic arthritis Status: Acute (3) Hypothyroid Status: Chronic (4) Osteoarthritis Status: Chronic (5) S/P knee replacement Status: Chronic (6) SLE (systemic lupus erythematosus) Status: Chronic - Assessment and Plan (Free Text) Plan: Continue present rx.
[2016-08-23] MEDS: Levothyroxine 100 MCG TAB PO SCH (06:04)
[2016-08-23] MEDS: Enoxaparin 40 mg Syringe SC SCH (08:59)
[2016-08-23] MEDS: Lidocaine 5% Patch TD SCH (09:00)
[2016-08-23] MEDS: Mycolog II OINT TOP SCH ×3 (09:07→17:19)
[2016-08-23] MEDS: Acetaminophen-Codeine 300/30 mg Tab PO PRN ×2 (09:09→22:10)
[2016-08-23] MEDS: Lactobacillus Acidophilus 500 MU Cap PO SCH ×2 (09:09→17:19)
[2016-08-24] MEDS: Levothyroxine 100 MCG TAB PO SCH (06:23)
[2016-08-24 08:38] VITALS: BP 107/66; PULSE 72; TEMP 97.2; O2SAT 100
[2016-08-24] MEDS: Lidocaine 5% Patch TD SCH (08:41)
[2016-08-24] MEDS: Enoxaparin 40 mg Syringe SC SCH (08:42)
[2016-08-24] MEDS: Acetaminophen-Codeine 300/30 mg Tab PO PRN (08:45)
[2016-08-24] MEDS: Lactobacillus Acidophilus 500 MU Cap PO SCH (08:45)
[2016-08-24] MEDS: Mycolog II OINT TOP SCH (08:50)
--- NOTE | 2016-08-24 12:29 | CP.PCM.DIS ---
Provider - Provider Date of Admission: 08/14/16 23:56 Attending physician: Nicola Richter MD Primary care physician: Nicola Richter MD Time Spent in preparation of Discharge (in minutes): 30 Diagnosis - Discharge Diagnosis (1) Fracture, patella Status: Acute (2) Septic arthritis Status: Acute (3) Hypothyroid Status: Chronic (4) Osteoarthritis Status: Chronic (5) S/P knee replacement Status: Chronic (6) SLE (systemic lupus erythematosus) Status: Chronic Hospital Course - Lab Results Lab Results: Most Recent Lab Values WBC 3.9 K/uL (4.8-10.8) L 08/20/16 07:16 RBC 3.62 Mil/uL (3.80-5.20) L 08/20/16 07:16 Hgb 11.6 g/dL (12.0-16.0) L 08/20/16 07:16 Hct 33.7 % (34.0-47.0) L 08/20/16 07:16 MCV 93.2 fl (81.0-99.0) 08/20/16 07:16 MCH 32.1 pg (27.0-31.0) H 08/20/16 07:16 MCHC 34.4 g/dL (33.0-37.0) 08/20/16 07:16 RDW 12.8 % (11.5-14.5) 08/20/16 07:16 Plt Count 144 K/uL (130-400) 08/20/16 07:16 Sodium 143 mmol/l (132-148) 08/20/16 07:16 Potassium 4.3 MMOL/L (3.6-5.0) 08/20/16 07:16 Chloride 102 mmol/L (98-107) 08/20/16 07:16 Carbon Dioxide 29 mmol/L (22-30) 08/20/16 07:16 Anion Gap 16 (10-20) 08/20/16 07:16 BUN 18 mg/dl (7-17) H 08/20/16 07:16 Creatinine 0.7 mg/dL (0.7-1.2) 08/20/16 07:16 Est GFR ( Amer) > 60 08/20/16 07:16 Est GFR (Non-Af Amer) > 60 08/20/16 07:16 Random Glucose 86 mg/dL (65-105) 08/20/16 07:16 Calcium 9.3 mg/dL (8.4-10.2) 08/20/16 07:16 - Hospital Course Hospital Course: Patient improving from PT No surgical intervention as per ortho. Will dc home. Discharge Exam - Head Exam Head Exam: ATRAUMATIC, NORMAL INSPECTION, NORMOCEPHALIC - Eye Exam Eye Exam: Normal appearance - Neck Exam Neck exam: Full Rom - Respiratory Exam Respiratory Exam: Clear to PA & Lateral, NORMAL BREATHING PATTERN - Cardiovascular Exam Cardiovascular Exam: REGULAR RHYTHM, +S1, +S2 - GI/Abdominal Exam GI & Abdominal Exam: Normal Bowel Sounds - Neurological Exam Neurological exam: Alert, CN II-XII Intact, Oriented x3 - Psychiatric Exam Psychiatric exam: Normal Affect - Skin Skin Exam: Normal Color Discharge Plan - Follow Up Plan Condition: GOOD Disposition: HOME/ ROUTINE
[2016-08-24] MEDS: Ergocalciferol 50,000 Intl Units Cap PO SCH (12:44)
== END 2016-08-24 16:30 | disposition home or self-care (01) | DRG 560 ==
LOC: MERGE 23:56 → H.TCU 23:56
PROVIDERS: ADMIT Internal Medicine; ATTEND Internal Medicine
PROC: F07L0FZ Range of Motion and Joint Mobility Treatment of Musculoskeletal System - Lower Back / Lower Extremity using Assistive, Adaptive, Supportive or Protective Equipment (ICD-10-PCS; principal; 2016-08-14)
PROC: F08Z4FZ Home Management Treatment using Assistive, Adaptive, Supportive or Protective Equipment (ICD-10-PCS; 2016-08-14)
PROC: F07Z9FZ Gait Training/Functional Ambulation Treatment using Assistive, Adaptive, Supportive or Protective Equipment (ICD-10-PCS; 2016-08-14)
PROC: F07L6FZ Therapeutic Exercise Treatment of Musculoskeletal System - Lower Back / Lower Extremity using Assistive, Adaptive, Supportive or Protective Equipment (ICD-10-PCS; 2016-08-14)
DX: S82.001D Unspecified fracture of right patella, subsequent encounter for closed fracture with routine healing (principal); M00.9 Pyogenic arthritis, unspecified; I82.409 Acute embolism and thrombosis of unspecified deep veins of unspecified lower extremity; M32.9 Systemic lupus erythematosus, unspecified; N39.0 Urinary tract infection, site not specified; X50.1XXD Overexertion from prolonged static or awkward postures, subsequent encounter; E03.9 Hypothyroidism, unspecified; Z96.653 Presence of artificial knee joint, bilateral; Z88.6 Allergy status to analgesic agent; Z91.041 Radiographic dye allergy status

== ENCOUNTER 2017-02-10 17:11 | Observation (INO) | payer MEDICARE ==
[2017-02-10 17:12] VITALS: BMI 38.9
[2017-02-10] MEDS ORDERED: Sodium Chloride 0.9% 500 ML IV STA (18:07)
--- NOTE | 2017-02-10 18:10 | ED PDOC ---
HPI: General Adult Time Seen by Provider: 02/10/17 17:44 Chief Complaint (Nursing): Shortness Of Breath Chief Complaint (Provider): Dizziness History Per: Patient History/Exam Limitations: no limitations Onset/Duration Of Symptoms: Days (Yesterday) Additional Complaint(s): Pt. has been having dizziness and passing out episodes that happen for a few seconds. Also sternal chest pain. No abd pain nausea, vomit, diarrhea, weakness, headaches. Dyspnea yesterday, gone now. No leg pain. Seen by Dr. Richter who wanted pt. to go to the ER. No numbness, tingles. NIHSS Stroke Scale - Date/Time Evaluation Performed Date Performed: 02/10/17 Time Performed: 18:10 When Was NIHSS Performed: Baseline - How Severe is the Stroke Level of Consciousness: 0=Alert LOC to Questions: 0=Both comments correct LOC to commands: 0=Obeys both correctly Best Gaze: 0=Normal Visual: 0=No visual loss Facial: 0=Normal Motor Arm - Left: 0=No drift Motor Arm - Right: 0=No drift Motor Leg - Left: 0=No drift Motor Leg - Right: 1=Drift before 5 sec Limb Ataxia: 0=Absent Sensory: 0=Normal Best Language: 0=No aphasia Dysarthia: 0=Normal articulation Extinction & Inattention (Neglect): 0=Normal, no object Score: 1 rTPA Inclusion/Exclusion - Refusal of Treatment Patient Refused Treatment: No - Inclusion Criteria for Altepase Patient is 18 years or Older: Yes The Clinical Diagnosis of Ischemic Stroke That is Causing a Potentially Disabling Neurological Deficit: No Time of Onset is Well Established to be Less Than 270 Minute Before Treatment Would Begin: No Risk/Benefit Discussed With Patient/Family Member Present: No Past Medical History Vital Signs: Last Vital Signs Temp 98.2 F 02/10/17 17:21 Pulse 79 02/10/17 17:21 Resp 16 02/10/17 17:21 BP 153/69 H 02/10/17 17:21 Pulse Ox 98 02/10/17 18:14 - Medical History PMH: Anemia, Arthritis, Back Problems (HERNIATED DISC), Bronchitis (2014), COPD , Deep Vein Thrombosis, Gastritis, HTN, Hypercholesterolemia, Hypothyroidism, Kidney Stones, Osteoporosis, Chronic Kidney Disease, Rheumatoid Arthritis, Sleep Apnea (Does not use CPAP) Denies: HIV - Surgical History Surgical History: Hernia Repair - Family History Family History: States: Unknown Family Hx - Living Arrangements Living Arrangements: With Family - Social History Alcohol: None Drugs: Denies - Immunization History Hx Tetanus Toxoid Vaccination: No Hx Influenza Vaccination: Yes Hx Pneumococcal Vaccination: No - Home Medications Home Medications: Ambulatory Orders Medication Instructions Recorded Aspirin [Ecotrin] 81 mg PO DAILY 02/10/17 Cholecalciferol (Vitamin D3) 2,000 unit PO DAILY 02/10/17 [Vitamin D3] Folic Acid [Folic Acid] 1 mg PO DAILY 02/10/17 Hydroxychloroquine Sulfate 200 mg PO BID 02/10/17 [Plaquenil] Levothyroxine [Synthroid] 100 mcg PO DAILY 02/10/17 Thiamine [Vitamin B1 Tab] 100 mg PO DAILY 02/10/17 amLODIPine [Norvasc] 2.5 mg PO DAILY 02/10/17 - Allergies Allergies/Adverse Reactions: Allergies Allergy/AdvReac Type Severity Reaction Status Date / Time prednisone Allergy Severe URTICARIA Verified 02/10/17 17:21 codeine Allergy RASH Verified 02/10/17 17:21 iodine AdvReac RASH Verified 02/10/17 17:21 Review of Systems ROS Statement: Except As Marked, All Systems Reviewed And Found Negative Cardiovascular: Positive for: Chest Pain, Light Headedness Respiratory: Positive for: Shortness of Breath Gastrointestinal: Negative for: Vomiting Neurological: Positive for: Dizziness Physical Exam - Reviewed Nursing Documentation Reviewed: Yes Vital Signs Reviewed: Yes - Physical Exam Appears: Positive for: Non-toxic, No Acute Distress Head Exam: Positive for: ATRAUMATIC, NORMAL INSPECTION, NORMOCEPHALIC Skin: Positive for: Normal Color, Warm, DRY Eye Exam: Positive for: EOMI, Normal appearance, PERRL ENT: Positive for: Normal ENT Inspection Neck: Positive for: Normal, Painless ROM, Supple Cardiovascular/Chest: Positive for: Regular Rate, Rhythm Respiratory: Positive for: CNT, Normal Breath Sounds Gastrointestinal/Abdominal: Positive for: Normal Exam, Bowel Sounds, Soft. Negative for: Tenderness Back: Positive for: Normal Inspection. Negative for: L CVA Tenderness, R CVA Tenderness Extremity: Positive for: Normal ROM. 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 Negative for: Motor/Sensory Deficits, Aphasia, Facial Droop - ECG ECG: Positive for: Interpreted By Me, Viewed By Me ECG Rhythm: Positive for: Normal QRS, Normal ST Segment, Sinus Rhythm Interpretation Of Abn EKG: pvc occ O2 Sat by Pulse Oximetry: 98 Pulse Ox Interpretation: Normal - Progress ED Course And Treament: 1843: Stable. Dr. Mendoza to fu on labs and imaging. Here with several syncope episodes. Disposition - Clinical Impression Clinical Impression: Dizziness - Patient ED Disposition Is Patient to be Admitted: Transfer of Care Counseled Patient/Family Regarding: Studies Performed, Diagnosis - Disposition Disposition: Transfer of Care Disposition Time: 18:44 Condition: STABLE Patient Signed Over To: Mejia Mendoza
[2017-02-10 18:53] LABS: BASO % 0.9 % (0.0-2.0); EOS # 0.2 K/uL (0.0-0.7); EOS % 4.5 % (0.0-4.0); HEMATOCRIT 37.4 % (34.0-47.0); LYMPH # 0.9 K/uL (1.0-4.3); LYMPH % 18.5 % (20.0-40.0); MEAN CORPUSCULAR HEMOGLOBIN 31.3 pg (27.0-31.0); MEAN CORPUSCULAR HGB CONC 32.9 g/dL (33.0-37.0); MONO # 0.6 K/uL (0.0-0.8); MONO % 11.2 % (0.0-10.0); NEUT # 3.2 K/uL (1.8-7.0); NEUT % 64.9 % (50.0-75.0); NRBC % 0.1 % (0.0-0.0); RED CELL DISTRIBUTION WIDTH 13.6 % (11.5-14.5); WHITE BLOOD COUNT 4.9 K/uL (4.8-10.8)
[2017-02-10 19:02] LABS: ALB/GLOB RATIO 1.3 (1.0-2.1); ALKALINE PHOSPHATASE 68 U/L (38-126); ALT/SGPT 24 U/L (9-52); AST/SGOT 23 U/L (14-36); BILIRUBIN,TOTAL 0.6 mg/dl (0.2-1.3); BLOOD UREA NITROGEN 27 mg/dl (7-17); CALCIUM 9.9 mg/dL (8.4-10.2); CARBON DIOXIDE 24 mmol/L (22-30); CHLORIDE 107 mmol/L (98-107); GFR AFRICAN-AMERICAN > 60; GLUCOSE,RANDOM 92 mg/dL (65-105); SODIUM 141 mmol/l (132-148); TOTAL PROTEIN 7.5 G/DL (6.3-8.2)
--- NOTE | 2017-02-10 19:18 | ED PDOC ---
- Laboratory Results Result Diagrams: 02/10/17 18:40 02/10/17 18:40 - ECG O2 Sat by Pulse Oximetry: 97 Medical Decision Making Medical Decision Making: Time: 1899 --Patient was endorsed to provider by Dr. Gil Jay MD. Pending CT results, lab results and re-evaluation. Time: 1932 --Labs: no significant abnormality noted. --CT head FINDINGS: Brain: Areas of decreased attenuation noted within the periventricular and subcortical white matter likely related to chronic microangiopathic ischemic changes given the patient's stated age.Streak artifact limits evaluation of the skull base. No evidence of acute intracranial hemorrhage. Correlate clinically. Ventricles: Unremarkable. No ventriculomegaly. Bones/joints: See above. Soft tissues: Unremarkable. Vasculature: Atherosclerotic calcifications of the carotid siphons. Sinuses: Unremarkable as visualized. No acute sinusitis. Mastoid air cells: Unremarkable as visualized. No mastoid effusion. IMPRESSION: Streak artifact limits evaluation of the skull base. No evidence of acute intracranial hemorrhage. Correlate clinically Time: 2003 --Discussed case with Dr. Richter who placed patient on hospital observation. Scribe Attestation: Documented by Izabela Olson, acting as a scribe for Mejia Mendoza MD. Provider Scribe Attestation: All medical record entries made by the Scribe were at my direction and personally dictated by me. I have reviewed the chart and agree that the record accurately reflects my personal performance of the history, physical exam, medical decision making, and the department course for this patient. I have also personally directed, reviewed, and agree with the discharge instructions and disposition. Disposition Discussed With : Nicola Richter Doctor Will See Patient In The: Hospital Counseled Patient/Family Regarding: Studies Performed, Diagnosis - Clinical Impression Clinical Impression: Syncope - POA Present On Arrival: None - Disposition Disposition: Hospitalized as Observation Patient Disposition Time: 20:04 Condition: STABLE
[2017-02-11 05:45] VITALS: O2SAT 97
[2017-02-11] MEDS ORDERED: Influenza Vaccine 18yr & older 0.5 ML/45 MCG SYR IM ONE (06:00)
[2017-02-11] MEDS ORDERED: Levothyroxine 100 MCG TAB PO SCH (06:30)
[2017-02-11 07:18] LABS: HEMATOCRIT 35.3 % (34.0-47.0); MEAN CELL VOLUME 93.8 fl (81.0-99.0); MEAN CORPUSCULAR HEMOGLOBIN 32.1 pg (27.0-31.0); MEAN CORPUSCULAR HGB CONC 34.2 g/dL (33.0-37.0); RED CELL DISTRIBUTION WIDTH 13.1 % (11.5-14.5); WHITE BLOOD COUNT 3.8 K/uL (4.8-10.8)
[2017-02-11 07:20] LABS: MAGNESIUM 1.9 MG/DL (1.6-2.3)
[2017-02-11 07:52] LABS: THYROID STIMULATING HORMONE 5.43 mIU/ML (0.46-4.68)
[2017-02-11] MEDS ORDERED: Gadodiamide 287 MG/ML VIAL (15ML) IV ONE (08:19)
--- NOTE | 2017-02-11 08:22 | CT ---
PROCEDURE: CT HEAD WITHOUT CONTRAST. HISTORY: headache COMPARISON: None available. TECHNIQUE: Axial computed tomography images were obtained through the head/brain without intravenous contrast. Radiation dose: Total exam DLP = 779.29 mGy-cm. This CT exam was performed using one or more of the following dose reduction techniques: Automated exposure control, adjustment of the mA and/or kV according to patient size, and/or use of iterative reconstruction technique. FINDINGS: HEMORRHAGE: No intracranial hemorrhage. BRAIN: No mass effect or edema. No atrophy or chronic microvascular ischemic changes. VENTRICLES: Unremarkable. No hydrocephalus. CALVARIUM: Unremarkable. PARANASAL SINUSES: Unremarkable as visualized. No significant inflammatory changes. MASTOID AIR CELLS: Unremarkable as visualized. No inflammatory changes. OTHER FINDINGS: None. IMPRESSION: No evidence of acute intracranial hemorrhage intracranial collection mass effect or midline shift. No evidence of sinusitis or mastoiditis. Preliminary report was submitted by [facility].
[2017-02-11] MEDS ORDERED: Enoxaparin 40 mg Syringe SC SCH (09:00)
--- NOTE | 2017-02-11 10:09 | MRI ---
PROCEDURE: MRI BRAIN WITHOUT CONTRAST HISTORY: syncope COMPARISON: None. TECHNIQUE: Multiplanar, multisequence MR images of the brain were obtained without intravenous contrast enhancement. FINDINGS: HEMORRHAGE: None DWI: No evidence of an acute or early subacute infarction. BRAIN PARENCHYMA: No mass effect or edema. There are scattered periventricular and subcortical nonspecific foci of hyperintense T2 and FLAIR signal in the white matter. Findings may represent chronic microvascular ischemic disease. Other etiology such as migraine, vasculitis or Lyme disease is less likely. VENTRICLES: Unremarkable. No hydrocephalus. CRANIUM: Unremarkable. ORBITS: The globes appear elongated. PARANASAL SINUSES/MASTOIDS: No evidence of sinusitis. VASCULAR SYSTEM: Skull base flow voids intact. OTHER FINDINGS: None. IMPRESSION: No evidence of acute infarction mass lesion mass effect or midline shift. Scattered nonspecific foci of hyperintense T2 and FLAIR in the white matter. Differential consideration includes chronic microvascular ischemic disease, less likely migraine, Lyme disease and vasculitis. Abnormal elongated shape of the globes noted bilaterally.
--- NOTE | 2017-02-11 10:13 | RAD ---
HISTORY: dyspnea COMPARISON: Comparison is made to 06/11/2015 FINDINGS: LUNGS: No active pulmonary disease. PLEURA: No significant pleural effusion identified, no pneumothorax apparent. CARDIOVASCULAR: Normal. OSSEOUS STRUCTURES: No significant abnormalities. VISUALIZED UPPER ABDOMEN: Normal. OTHER FINDINGS: None. IMPRESSION: No active disease.
--- NOTE | 2017-02-11 10:44 | CARD ---
APPROVED REPORT EKG Measurement Heart [id number] <Conclusion> Sinus rhythm with occasional premature ventricular complexes Otherwise normal ECG
--- NOTE | 2017-02-11 10:47 | CARD ---
APPROVED REPORT EKG Measurement Heart [id number] <Conclusion> Normal sinus rhythm Normal ECG
[2017-02-11 12:44] VITALS: RESP 20
--- NOTE | 2017-02-11 13:13 | CP.PCM.HP ---
History of Present Illness - History of Present Illness History of Present Illness: Pt. has been having dizziness and passing out episodes that happen for a few seconds. Also sternal chest pain. No abd pain nausea, vomit, diarrhea, weakness, headaches. Dyspnea yesterday, gone now. No leg pain. No numbness, tingles. At present comfortable, no CP, no syncope, no SOB. Present on Admission - Present on Admission Any Indicators Present on Admission: No Review of Systems - Constitutional Constitutional: As Per HPI - EENT Eyes: As Per HPI - Cardiovascular Cardiovascular: As Per HPI - Respiratory Respiratory: As Per HPI - Gastrointestinal Gastrointestinal: As Per HPI - Musculoskeletal Musculoskeletal: As Per HPI - Integumentary Integumentary: As Per HPI - Neurological Neurological: As Per HPI Past Patient History - Infectious Disease Hx of Infectious Diseases: None - Past Medical History & Family History Past Medical History?: Yes - Past Social History Smoking Status: Former Smoker - CARDIAC Hx Cardiac Disorders: Yes Hx Hypercholesterolemia: Yes Hx Hypertension: Yes - PULMONARY Hx Respiratory Disorders: Yes Hx Bronchitis: Yes Hx Chronic Obstructive Pulmonary Disease (COPD): Yes Hx Sleep Apnea: Yes (no machine) - NEUROLOGICAL Hx Neurological Disorder: Yes - HEENT Hx HEENT Problems: Yes - RENAL Hx Chronic Kidney Disease: Yes Hx Kidney Stones: Yes Hx Renal Failure: Yes (Chronic Kidney Disease) - ENDOCRINE/METABOLIC Hx Endocrine Disorders: Yes Hx Hypothyroidism: Yes - HEMATOLOGICAL/ONCOLOGICAL Hx Blood Disorders: Yes Hx AIDS: No Hx Anemia: Yes Hx Human Immunodeficiency Virus (HIV): No - INTEGUMENTARY Hx Dermatological Problems: No - MUSCULOSKELETAL/RHEUMATOLOGICAL Hx Musculoskeletal Disorders: Yes Hx Arthritis: Yes Hx Back Pain: Yes Hx Falls: No Hx Osteoporosis: Yes Hx Unsteady Gait: Yes (uses cane) - GASTROINTESTINAL Hx Gastrointestinal Disorders: Yes Hx Gastritis: Yes - GENITOURINARY/GYNECOLOGICAL Hx Genitourinary Disorders: No - PSYCHIATRIC Hx Psychophysiologic Disorder: No Hx Substance Use: No - SURGICAL HISTORY Hx Surgeries: Yes Hx Herniorrhaphy: Yes (umbilical hernia) Hx Joint Replacement: Yes (TOTAL LEFT KNEE REPLACEMENT 06/03/2014) Hx Thyroidectomy: Yes Other/Comment: . LASER SX FOR KIDNEY STONE - ANESTHESIA Hx Anesthesia: Yes Hx Anesthesia Reactions: No Hx Malignant Hyperthermia: No Meds Allergies/Adverse Reactions: Allergies Allergy/AdvReac Type Severity Reaction Status Date / Time prednisone Allergy Severe URTICARIA Verified 02/10/17 17:21 codeine Allergy RASH Verified 02/10/17 17:21 iodine AdvReac RASH Verified 02/10/17 17:21 Physical Exam - Constitutional Appears: Non-toxic - Head Exam Head Exam: ATRAUMATIC, NORMAL INSPECTION, NORMOCEPHALIC - Eye Exam Eye Exam: Normal appearance - ENT Exam ENT Exam: Mucous Membranes Moist - Neck Exam Neck exam: Positive for: Full Rom - Respiratory Exam Respiratory Exam: Clear to Auscultation Bilateral - Cardiovascular Exam Cardiovascular Exam: REGULAR RHYTHM, +S1, +S2 - GI/Abdominal Exam GI & Abdominal Exam: Normal Bowel Sounds - Extremities Exam Extremities exam: Positive for: normal inspection - Back Exam Back exam: NORMAL INSPECTION - Neurological Exam Neurological exam: Alert, CN II-XII Intact, Normal Gait, Oriented x3, Reflexes Normal - Psychiatric Exam Psychiatric exam: Normal Affect - Skin Skin Exam: Normal Color Results - Vital Signs Recent Vital Signs: Last Vital Signs Temp 97.7 F 02/11/17 12:00 Pulse 64 02/11/17 12:00 Resp 20 02/11/17 12:00 BP 128/69 02/11/17 12:00 Pulse Ox 97 02/11/17 12:00 - Labs Result Diagrams: 02/11/17 06:45 02/10/17 18:40 Labs: Laboratory Results - last 24 hr 02/10/17 02/10/17 02/10/17 00:12 18:40 18:40 WBC 4.9 RBC 3.94 Hgb 12.3 Hct 37.4 MCV 95.0 MCH 31.3 H MCHC 32.9 L RDW 13.6 Plt Count 152 MPV 9.0 Neut % (Auto) 64.9 Lymph % (Auto) 18.5 L Knox % (Auto) 11.2 H Eos % (Auto) 4.5 H Baso % (Auto) 0.9 Neut # 3.2 Lymph # 0.9 L Knox # 0.6 Eos # 0.2 Baso # 0.0 ESR PT INR APTT Sodium 141 Potassium 4.0 Chloride 107 Carbon Dioxide 24 Anion Gap 14 BUN 27 H Creatinine 0.9 Est GFR ( Amer) > 60 Est GFR (Non-Af Amer) > 60 POC Glucose (mg/dL) Random Glucose 92 Calcium 9.9 Magnesium Total Bilirubin 0.6 AST 23 ALT 24 Alkaline Phosphatase 68 CK-MB (Mass) 1.02 Troponin I < 0.0120 NT-Pro-B Natriuret Pep 174 Total Protein 7.5 Albumin 4.3 Globulin 3.2 Albumin/Globulin Ratio 1.3 Vitamin B12 TSH 3rd Generation 02/10/17 02/10/17 02/11/17 18:40 18:42 03:05 WBC RBC Hgb Hct MCV MCH MCHC RDW Plt Count MPV Neut % (Auto) Lymph % (Auto) Knox % (Auto) Eos % (Auto) Baso % (Auto) Neut # Lymph # Knox # Eos # Baso # ESR PT 11.3 INR 1.1 APTT 26.0 Sodium Potassium Chloride Carbon Dioxide Anion Gap BUN Creatinine Est GFR ( Amer) Est GFR (Non-Af Amer) POC Glucose (mg/dL) 97 Random Glucose Calcium Magnesium Total Bilirubin AST ALT Alkaline Phosphatase CK-MB (Mass) Troponin I < 0.0120 NT-Pro-B Natriuret Pep Total Protein Albumin Globulin Albumin/Globulin Ratio Vitamin B12 TSH 3rd Generation 02/11/17 02/11/17 02/11/17 06:45 06:45 11:15 WBC 3.8 L RBC 3.76 L Hgb 12.1 Hct 35.3 MCV 93.8 MCH 32.1 H MCHC 34.2 RDW 13.1 Plt Count 125 L D MPV Neut % (Auto) Lymph % (Auto) Knox % (Auto) Eos % (Auto) Baso % (Auto) Neut # Lymph # Knox # Eos # Baso # ESR 35 H PT INR APTT Sodium Potassium Chloride Carbon Dioxide Anion Gap BUN Creatinine Est GFR ( Amer) Est GFR (Non-Af Amer) POC Glucose (mg/dL) Random Glucose Calcium Magnesium 1.9 Total Bilirubin AST ALT Alkaline Phosphatase CK-MB (Mass) Troponin I < 0.0120 NT-Pro-B Natriuret Pep Total Protein Albumin Globulin Albumin/Globulin Ratio Vitamin B12 414 TSH 3rd Generation 5.43 H Assessment & Plan (1) Lupus (systemic lupus erythematosus) Status: Chronic (2) Syncope Status: Acute (3) COPD (chronic obstructive pulmonary disease) Status: Chronic (4) Hypothyroid Status: Chronic (5) Osteoarthritis Status: Chronic - Assessment and Plan (Free Text) Plan: As per orders.
[2017-02-11] MEDS ORDERED: Levothyroxine 125 MCG TAB PO SCH (13:17)
[2017-02-11 14:11] LABS: URINE BILIRUBIN NEGATIVE (NEGATIVE); URINE BLOOD NEGATIVE (NEGATIVE); URINE COLOR YELLOW (YELLOW); URINE GLUCOSE (UA) NEG (Normal); URINE KETONE NEGATIVE (NEGATIVE); URINE LEUKOCYTE ESTERASE NEG Leu/uL (Negative); URINE PROTEIN NEGATIVE (NEGATIVE); URINE UROBILINOGEN 0.2-1.0 mg/dL (0.2-1.0); WBC URINE 1 /hpf (0-5)
--- NOTE | 2017-02-11 15:45 | US ---
PROCEDURE: Duplex ultrasound of the carotid and vertebral arteries. HISTORY: syncope COMPARISON: None available. TECHNIQUE: Grayscale and duplex Doppler evaluation of the cervical carotid and vertebral arteries were performed. The common carotid, carotid bifurcations and cervical ICA and proximal ECA were evaluated. The vertebral arteries were evaluated for gross patency and direction. FINDINGS: RIGHT CAROTID ARTERIES: Common Carotid Artery: Normal. Maximal flow velocity of 66.9 cm/s. Carotid Bifurcation: Normal. Internal Carotid Artery:Normal. Maximal flow velocity of 87.5 cm/s. External Carotid Artery (proximal branches): Normal. Maximal flow velocity of 79.4 cm/s. ICA/CCA Ratio: 2.0 LEFT CAROTID ARTERIES: Common Carotid Artery: Normal. Maximal flow velocity of 82.9 cm/s. Carotid Bifurcation: Normal. Internal Carotid Artery:Normal. Maximal flow velocity of 83.5 cm/s. External Carotid Artery (proximal branches): Normal. Maximal flow velocity of 101.5 cm/s. ICA/CCA Ratio: 1.5 VERTEBRAL ARTERIES: Right Vertebral Artery: Patent. Antegrade flow. Left Vertebral Artery: Patent. Antegrade flow. OTHER FINDINGS: None. IMPRESSION: No evidence of hemodynamically significant stenosis although the ICA/ CCA velocity ratios are elevated, worse on the right.
[2017-02-11 16:26] VITALS: BP 117/70; PULSE 66; TEMP 97.9
[2017-02-11 17:08] LABS: CORTISOL AM 13.7 ug/dL (4.46-22.7)
[2017-02-11 17:43] LABS: FOLATE > 20.0 ng/mL
== END 2017-02-11 16:00 | disposition home or self-care (01) ==
LOC: H.ER 17:11 → H.ERHOLD 20:04 → H.TEL 21:22
PROVIDERS: ADMIT Internal Medicine; ATTEND Internal Medicine
DX: R55 Syncope and collapse (principal); M32.9 Systemic lupus erythematosus, unspecified; J44.9 Chronic obstructive pulmonary disease, unspecified; E03.9 Hypothyroidism, unspecified; M19.90 Unspecified osteoarthritis, unspecified site; E78.00 Pure hypercholesterolemia, unspecified; G47.30 Sleep apnea, unspecified; I12.9 Hypertensive chronic kidney disease with stage 1 through stage 4 chronic kidney disease, or unspecified chronic kidney disease; N18.9 Chronic kidney disease, unspecified; M06.9 Rheumatoid arthritis, unspecified; M81.0 Age-related osteoporosis without current pathological fracture; Z79.82 Long term (current) use of aspirin; Z87.442 Personal history of urinary calculi; Z87.891 Personal history of nicotine dependence; Z96.652 Presence of left artificial knee joint; D64.9 Anemia, unspecified; Z86.718 Personal history of other venous thrombosis and embolism; K29.70 Gastritis, unspecified, without bleeding; Z88.5 Allergy status to narcotic agent; Z88.8 Allergy status to other drugs, medicaments and biological substances; Z23 Encounter for immunization
CPT/HCPCS: 36415; 70450; 70551; 71010; 80053; 81003; 82024; 82533; 82553; 82607; 82746; 82948; 83735; 83880; 84443; 84484; 85025; 85027; 85610; 85651; 85730; 86039; 86592; 93005; 93880; 95816; 99283; G0008; G0378; J1650; J7040; Q2035

== ENCOUNTER 2017-02-16 14:08 | Observation (INO) | payer MEDICARE ==
[2017-02-16] MEDS ORDERED: Sodium Chloride 0.9% 1,000 ML IV STA (14:48)
[2017-02-16 15:16] LABS: PARTIAL THROMBOPLASTIN TIME 27.9 Seconds (25.6-37.1)
[2017-02-16 15:17] LABS: ALB/GLOB RATIO 1.3 (1.0-2.1); ALKALINE PHOSPHATASE 68 U/L (38-126); ALT/SGPT 26 U/L (9-52); AST/SGOT 21 U/L (14-36); BILIRUBIN,TOTAL 0.6 mg/dl (0.2-1.3); BLOOD UREA NITROGEN 21 mg/dl (7-17); CARBON DIOXIDE 25 mmol/L (22-30); CHLORIDE 104 mmol/L (98-107); GFR AFRICAN-AMERICAN > 60; GLUCOSE,RANDOM 93 mg/dL (65-105); POTASSIUM 4.4 MMOL/L (3.6-5.0); SODIUM 143 mmol/l (132-148); TOTAL PROTEIN 7.5 G/DL (6.3-8.2)
[2017-02-16 15:33] LABS: BASO # 0.1 K/uL (0.0-0.2); BASO % 1.2 % (0.0-2.0); EOS # 0.2 K/uL (0.0-0.7); EOS % 4.7 % (0.0-4.0); HEMATOCRIT 39.4 % (34.0-47.0); LYMPH # 0.8 K/uL (1.0-4.3); LYMPH % 18.5 % (20.0-40.0); MEAN CELL VOLUME 92.8 fl (81.0-99.0); MEAN CORPUSCULAR HGB CONC 34.4 g/dL (33.0-37.0); MEAN PLATELET VOLUME 8.7 fl (7.2-11.7); MONO # 0.4 K/uL (0.0-0.8); MONO % 9.1 % (0.0-10.0); NEUT # 2.9 K/uL (1.8-7.0); NEUT % 66.5 % (50.0-75.0); NRBC % 0.1 % (0.0-0.0); RED CELL DISTRIBUTION WIDTH 13.3 % (11.5-14.5); WHITE BLOOD COUNT 4.4 K/uL (4.8-10.8)
--- NOTE | 2017-02-16 15:51 | ED PDOC ---
Syncope/Near Syncope/Dizziness Time Seen by Provider: 02/16/17 14:24 Chief Complaint (Nursing): Dizziness/Lightheaded Chief Complaint (Provider): dizziness History Per: Patient History/Exam Limitations: no limitations Onset/Duration Of Symptoms: Gradual Activity At Onset Of Symptoms: Standing Associated Symptoms Preceding Syncopal Episode: Lightheadedness Seizure Or Post-ictal Symptoms: None Additional Complaint(s): Huong Street is a year old female, with an extensive previous medical history of lupus, hypercholesterolemia, and arthritis, who presents to the ED for further evaluation of worsening dizziness associated with somnolence left leg tremors, non focal chest pain, shortness of breath, mild headache and facial twitching after starting Keppra 1,000 mg yesterday. Patient was placed on Keppra after an abnormal EEG while being worked up for history of dizziness and syncope. Patient denies any loss of consciousness since her last hospital admission for which the chart was reviewed. 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 PMD: Dr. Richter Past Medical History Reviewed: Historical Data, Nursing Documentation, Vital Signs Vital Signs: Last Vital Signs Temp 97.0 F L 02/16/17 14:14 Pulse 70 02/16/17 14:14 Resp 16 02/16/17 14:14 BP 123/70 02/16/17 14:14 Pulse Ox 100 02/16/17 14:14 - Medical History PMH: Anemia, Arthritis, Back Problems (HERNIATED DISC), Bronchitis, COPD, Deep Vein Thrombosis, Gastritis, HTN, Hypercholesterolemia, Hypothyroidism, Kidney Stones, Osteoporosis, Chronic Kidney Disease, Rheumatoid Arthritis, Sleep Apnea (no machine) Denies: HIV - Surgical History Surgical History: Hernia Repair - Family History Family History: States: Unknown Family Hx - Immunization History Hx Tetanus Toxoid Vaccination: No Hx Influenza Vaccination: Yes Hx Pneumococcal Vaccination: No - Home Medications Home Medications: Ambulatory Orders Medication Instructions Recorded Aspirin [Ecotrin] 81 mg PO DAILY 02/10/17 Cholecalciferol (Vitamin D3) 2,000 unit PO DAILY 02/10/17 [Vitamin D3] Folic Acid 1 mg PO DAILY 02/10/17 Hydroxychloroquine Sulfate 200 mg PO BID 02/10/17 [Plaquenil] Thiamine [Vitamin B1 Tab] 100 mg PO DAILY 02/10/17 amLODIPine [Norvasc] 2.5 mg PO DAILY 02/10/17 Levothyroxine [Synthroid] 125 mcg PO DAILY@0630 tab 02/11/17 Levetiracetam [Levetiracetam] 1,000 mg PO DAILY 02/16/17 - Allergies Allergies/Adverse Reactions: Allergies Allergy/AdvReac Type Severity Reaction Status Date / Time prednisone Allergy Severe URTICARIA Verified 02/16/17 14:14 codeine Allergy RASH Verified 02/16/17 14:14 iodine AdvReac RASH Verified 02/16/17 14:14 Review of Systems ROS Statement: Except As Marked, All Systems Reviewed And Found Negative Constitutional: Negative for: Fever Cardiovascular: Positive for: Chest Pain Respiratory: Positive for: Shortness of Breath Musculoskeletal: Positive for: Other (left leg shaking ) Neurological: Positive for: Headache, Dizziness Physical Exam - Reviewed Nursing Documentation Reviewed: Yes Vital Signs Reviewed: Yes - Physical Exam Appears: Positive for: Non-toxic, No Acute Distress (patient appears anxious ) Head Exam: Positive for: ATRAUMATIC, NORMAL INSPECTION, NORMOCEPHALIC Skin: Positive for: Normal Color, Warm, DRY Eye Exam: Positive for: EOMI, Normal appearance, PERRL ENT: Positive for: Normal ENT Inspection Neck: Positive for: Normal, Painless ROM Cardiovascular/Chest: Positive for: Regular Rate, Rhythm Respiratory: Positive for: CNT, Normal Breath Sounds Gastrointestinal/Abdominal: Positive for: Normal Exam, Bowel Sounds, Soft Back: Positive for: Normal Inspection Extremity: Positive for: Normal ROM Neurologic/Psych: Positive for: Alert, Oriented - Laboratory Results Result Diagrams: 02/16/17 15:29 02/16/17 15:00 - ECG ECG: Positive for: Interpreted By Me ECG Rhythm: Positive for: Sinus Rhythm, Nonspecific Changes Rate: 70 O2 Sat by Pulse Oximetry: 100 (RA) Pulse Ox Interpretation: Normal Medical Decision Making Medical Decision Making: Initial Impression: Shortness of breath, chest pain and dizziness in setting of recent diagnosis of possible seizure. Given history of lupus, chest pain and shortness of breath will rule out pulmonary embolism. Patient is allergic to iodine and D-dimer performed and elevated. Will attempt to get VQ scan Initial Plan: * TSH * Troponin I * PTT * PT * D-dimer * labs * EKG * IV NS 1,000 ml at 1,000 ml/hr * reevaluation labs reviewed, cbc unremarkable DDimer is markedly elevated. Chem clinically unremarkable TSH WNL Unable to get CTA chest r/o PE due to iodine allergy (states she became dizzy and unconscious w contrast dye prior) D/w Dr Richter, given new onset seizure, trial of keppra not effective as outpatient for ?partial seizure this am, need for VQ scan admit Obs tele. Give dose lovenox 1mg/kg given dyspnea and high risk of PE with lupus. Scribe Attestation: Documented by Alyssa Salamanca acting as a scribe for Sarath Duran D.O. Provider Scribe Attestation: All medical record entries made by the Scribe were at my direction and personally dictated by me. I have reviewed the chart and agree that the record accurately reflects my personal performance of the history, physical exam, medical decision making, and the department course for this patient. I have also personally directed, reviewed, and agree with the discharge instructions and disposition. Disposition - Clinical Impression Clinical Impression: Dizziness, Dyspnea - Patient ED Disposition Is Patient to be Admitted: Yes Counseled Patient/Family Regarding: Studies Performed, Diagnosis - Disposition Disposition Time: 16:01 Condition: STABLE - Pt Status Changed To: Hospital Disposition Of: Inpatient - Admit Certification Admit to Inpatient:: After my assessment, the patient will require hospitalization for at least two midnights. This is because of the severity of symptoms shown, intensity of services needed, and/or the medical risk in this patient being treated as an outpatient. - POA Present On Arrival: None
[2017-02-16 16:40] VITALS: BMI 37.4
[2017-02-16] MEDS ORDERED: Enoxaparin 100 mg Syringe SC STA (16:42)
--- NOTE | 2017-02-16 17:40 | US ---
PROCEDURE: Bilateral lower extremity venous duplex Doppler. HISTORY: r/o DVT COMPARISON: None available. TECHNIQUE: Bilateral common femoral, superficial femoral, popliteal and posterior tibial veins were evaluated. Flow was assessed with color Doppler, compressibility, assessment of phasic flow and augmentation response. FINDINGS: COMMON FEMORAL VEIN: Right CFV: Unremarkable. Left CFV: Unremarkable. SUPERFICIAL FEMORAL VEIN: Right SFV: Unremarkable. Left SFV: Unremarkable. POPLITEAL VEIN: Right Popliteal: Unremarkable. Left Popliteal: Unremarkable. POSTERIOR TIBIAL VEIN: Right PTV: Unremarkable. Left PTV: Unremarkable. OTHER FINDINGS: None. IMPRESSION: No evidence of deep venous thrombosis.
[2017-02-17] MEDS ORDERED: Levothyroxine 125 MCG TAB PO SCH (06:30)
[2017-02-17] MEDS ORDERED: Enoxaparin 120 mg Syringe SC SCH (09:00)
--- NOTE | 2017-02-17 10:47 | CARD ---
APPROVED REPORT EKG Measurement Heart [id number] <Conclusion> Normal sinus rhythm Minimal voltage criteria for LVH, may be normal variant Borderline ECG
[2017-02-17] MEDS ORDERED: Gadodiamide 287 MG/ML VIAL (15ML) IV ONE (13:47)
--- NOTE | 2017-02-17 14:54 | NM ---
COMPARISON: None available TECHNIQUE: 40.380 mCi technetium 99-m DTPA aerosol. 5.097 mCI technetium 99-m MAA administered intravenously. FINDINGS: VENTILATION COMPONENT: Large defect left lower lobe. Central tracheobronchial deposition of aerosol limits this evaluation. PERFUSION COMPONENT: Large defect left lower lobe matched with the ventilation scan. Few very small peripheral defects in upper right lung, likely matched with ventilation scan. . IMPRESSION: Lowprobability ventilation perfusion scan for pulmonary embolism.
--- NOTE | 2017-02-17 15:07 | RAD ---
HISTORY: Dyspnea, new onset of seizure. COMPARISON: 02/10/2017. TECHNIQUE: Chest PA and lateral FINDINGS: LUNGS: No active pulmonary disease. PLEURA: No significant pleural effusion identified. No pneumothorax apparent. CARDIOVASCULAR: Normal. OSSEOUS STRUCTURES: No significant abnormalities. VISUALIZED UPPER ABDOMEN: Normal. OTHER FINDINGS: None. IMPRESSION: No active disease. No significant interval change compared to the prior examination(s).
--- NOTE | 2017-02-17 15:16 | MRI ---
PROCEDURE: MRI BRAIN WITH AND WITHOUT CONTRAST HISTORY: recent MRI was abnormal COMPARISON: MRI brain without contrast from 02/11/2017 TECHNIQUE: Multiplanar, multisequence MR images of the brain were obtained with and without intravenous contrast enhancement. 20 cc Omniscan was injected intravenously. FINDINGS: HEMORRHAGE: None DWI: No evidence of an acute or early subacute infarction. BRAIN PARENCHYMA: There is no evidence of enhancement corresponding to the multifocal T2/FLAIR hyperintense lesions in the subcortical and deep supratentorial white matter. There is no abnormal parenchymal or leptomeningeal enhancement. The midline sagittal structures are normal. ENHANCEMENT: There is no abnormal parenchymal or leptomeningeal enhancement. VENTRICLES: The ventricles are normal in size, shape and configuration. CRANIUM: There is normal bone marrow signal pattern. ORBITS: There is bilateral buphthalmos. PARANASAL SINUSES/MASTOIDS: Clear VASCULAR SYSTEM: Skull base flow voids intact. OTHER FINDINGS: None . IMPRESSION: No evidence of enhancement corresponding to the multifocal subcortical and deep supratentorial white matter lesions. The differential considerations include chronic microangiopathic changes, gliosis, Lyme disease, vasculitis, migraine headache effect and demyelinating disease including multiple sclerosis. Clinical correlation and follow-up is advised.
[2017-02-17 15:46] VITALS: RESP 20
--- NOTE | 2017-02-17 18:42 | CP.PCM.HP ---
History of Present Illness - History of Present Illness History of Present Illness: Huong Street is a 62 year old female, with previous medical history of lupus , hypercholesterolemia, and arthritisand hypothyroid who presents to the ED for further evaluation of worsening dizziness associated with somnolence left leg tremors, non focal chest pain, shortness of breath, mild headache and facial twitching after starting Keppra 1,000 mg yesterday. Patient had same tonic clonic movements. Patient was placed on Keppra after an abnormal EEG while being worked up for history of dizziness and syncope. Patient had loss of consciousness with the last episode. During her stay no new episode of seizures. D Dimers elevated PE w/u negative. She not able to tolerate Keppra. At present comfortable in bed. Present on Admission - Present on Admission Any Indicators Present on Admission: No Review of Systems - Constitutional Constitutional: As Per HPI - EENT Eyes: As Per HPI - Cardiovascular Cardiovascular: As Per HPI - Respiratory Respiratory: As Per HPI - Reproductive: Female Reproductive:Female: As Per HPI - Integumentary Integumentary: As Per HPI - Neurological Neurological: As Per HPI - Psychiatric Psychiatric: As Per HPI Past Patient History - Infectious Disease Hx of Infectious Diseases: None - Past Medical History & Family History Past Medical History?: Yes - Past Social History Smoking Status: Never Smoked - CARDIAC Hx Cardiac Disorders: Yes Hx Hypercholesterolemia: Yes Hx Hypertension: Yes - PULMONARY Hx Respiratory Disorders: No - NEUROLOGICAL Hx Neurological Disorder: Yes Hx Dizziness: Yes - HEENT Hx HEENT Problems: No - RENAL Hx Chronic Kidney Disease: Yes Hx Kidney Stones: Yes - ENDOCRINE/METABOLIC Hx Endocrine Disorders: Yes Hx Hypothyroidism: Yes Hx Systemic Lupus Erythematosus: Yes - HEMATOLOGICAL/ONCOLOGICAL Hx Blood Disorders: Yes Hx Anemia: Yes - INTEGUMENTARY Hx Dermatological Problems: No - MUSCULOSKELETAL/RHEUMATOLOGICAL Hx Musculoskeletal Disorders: Yes Hx Arthritis: Yes Hx Falls: No - GASTROINTESTINAL Hx Gastrointestinal Disorders: Yes Hx Gastritis: Yes - GENITOURINARY/GYNECOLOGICAL Hx Genitourinary Disorders: No - PSYCHIATRIC Hx Psychophysiologic Disorder: No Hx Substance Use: No - SURGICAL HISTORY Hx Surgeries: Yes Hx Herniorrhaphy: Yes (umbilical hernia) Hx Joint Replacement: Yes (TOTAL LEFT KNEE REPLACEMENT 06/03/2014) Hx Thyroidectomy: Yes Other/Comment: . LASER SX FOR KIDNEY STONE - ANESTHESIA Hx Anesthesia: Yes Hx Anesthesia Reactions: No Hx Malignant Hyperthermia: No Has any member of the family had a problem w/ anesthesia?: No Meds Allergies/Adverse Reactions: Allergies Allergy/AdvReac Type Severity Reaction Status Date / Time prednisone Allergy Severe URTICARIA Verified 02/16/17 14:14 codeine Allergy RASH Verified 02/16/17 14:14 iodine AdvReac RASH Verified 02/16/17 14:14 Results - Vital Signs Recent Vital Signs: Last Vital Signs Temp 97.9 F 02/17/17 15:45 Pulse 66 02/17/17 15:45 Resp 20 02/17/17 15:45 BP 120/74 02/17/17 15:45 Pulse Ox 98 02/17/17 15:45 - Labs Result Diagrams: 02/16/17 15:29 02/16/17 15:00 Labs: Laboratory Results - last 24 hr 02/16/17 20:30 Troponin I < 0.0120 Assessment & Plan (1) Seizure Status: Acute (2) Pulmonary emboli Status: Ruled-out (3) Pulmonary embolism Status: Ruled-out (4) Syncope Status: Ruled-out (5) COPD (chronic obstructive pulmonary disease) Status: Chronic (6) Hypothyroid Status: Chronic (7) Lupus (systemic lupus erythematosus) Status: Chronic (8) Osteoarthritis Status: Chronic - Assessment and Plan (Free Text) Plan: Will follow neuro consult.
[2017-02-17 19:51] VITALS: BP 129/78; TEMP 97.8
[2017-02-18] MEDS ORDERED: Enoxaparin 40 mg Syringe SC SCH (09:00)
--- NOTE | 2017-02-19 08:22 | CON ---
DATE: 02/17/2017 TIME OF EVALUATION: 06:45 p.m. ATTENDING PHYSICIAN: Nicola Richter MD LOCATION: The patient's room number is 416, bed B. REASON FOR CONSULTATION: Seizures. CHIEF COMPLAINT: The patient was admitted with history of dizziness, following taking medication. From neurological point of view, I was called in to evaluate her for further management. HISTORY OF PRESENT ILLNESS: Ms. Huong Street is a 62-year-old right-handed female, presenting with history of focal tremor with involuntary movements with facial twitching. She has been started on Keppra following electroencephalographic paroxysmal activities. She started Keppra 1000 mg per day. Following Keppra, she started to feel shortness of breath and dizziness and the leg tremors got worsened up. The patient was admitted for observation. PAST MEDICAL HISTORY: Arthritis, herniated disc, bronchitis, COPD, deep vein thrombosis, hypertension, dyslipidemia, hypothyroidism, renal calculi, osteoporosis, chronic kidney disease, rheumatoid arthritis and sleep apnea. PERSONAL HISTORY: Denies smoking or alcohol use. ALLERGIES: TO PREDNISONE, CODEINE AND IODINE. MEDICATIONS: Aspirin, vitamin D, folic acid, Plaquenil, thiamine, Norvasc, Synthroid and levetiracetam. REVIEW OF SYSTEMS: A 16-point system being reviewed. From neuro, seizures. PHYSICAL EXAMINATION: VITAL SIGNS: Blood pressure 120/74, mean arterial pressure of 89, respiratory rate 16, and temperature is afebrile. NECK: Supple. No carotid bruit. CARDIOVASCULAR: Heart sounds are regular. CHEST: Fair air entry. EXTREMITIES: No edema in legs. NEUROLOGIC EXAMINATION: Mental status examination: She is awake, alert, and oriented to person, place and time. Speech is clear. Naming, repetition, fluency, comprehension intact. The patient is examined in the presence of her son. Cranial nerve examination: Visual pena intact. Pupils are reactive to light. Extraocular movements are normal. No nystagmus. No facial sensory deficits. Facial asymmetry manifesting as flattening of the left nasolabial fold. Hearing is normal. Tongue is midline. Good gag. Motor examination: Outstretched hand with eyes closed, essential tremor. Distal muscle group atrophy noted. Deep tendon reflexes are absent throughout. Plantars are upgoing on the left side, right side was downgoing. Sensory examination: Responding to pain symmetrically on both sides. No cortical sensory loss. Coordination: [id number] test is intact. Gait deferred at this time. She is ambulatory with assistance. WORKUP: MRI of the brain, which was reviewed by me, with contrast, no acute enhancement noted. However, with a noncontrast MRI, it showed multiple FLAIR images consistent with small vessel disease or vasculitis. Repeat electroencephalogram does not show any electrographic seizure activities. BLOOD WORKUP: WBC 4.4, hemoglobin 13.6, hematocrit 39.4, and platelets 152. PT 11.1, INR 1.1, PTT 27.9. Sodium 143, potassium 4.4, chloride 104, bicarbonate 25, BUN 21, creatinine 0.9, GFR more than 60. TSH 3.90. CONCLUSION: Upon reviewing her history and neurological examination, Ms. Huong Street is presenting with possible focal seizures, needs to be on antiepileptic drugs. The patient is reassured to take the medication with the meal, 500 twice a day is the normal dose for her weight to try for the seizures. The patient is reassured and she is willing to take the medication as directed. The patient is rescheduled to see me as an outpatient. The patient may need extended-hour ambulatory video electroencephalogram that can be done as outpatient. The patient also had a history of sleep apnea, but she is non-complaint with CPAP unit. At this point, I would like to strongly recommend her to reevaluate her sleep status for further management. The patient's condition has been well discussed with her as well as her physician, Dr. Richter. Raymond Arzola MD
--- NOTE | 2017-02-19 08:28 | EEG ---
DATE: 02/17/2017 This is a 16-channel electroencephalogram of awake and drowsy adult. During study, photic stimulation was performed and hyperventilation was not performed. The resting electroencephalogram shows low amplitude 20-30 microvolts, diffuse 5-7 Hz theta activities noted, followed by high amplitude 2-3 Hz delta activities seen, which is consistent with early drowsiness. Later, the background activities somewhat shows alpha activities at parietal and occipital leads. The photic stimulation did not evoke driving response noted at 2 to 20 Hz. IMPRESSION: This is a normal electroencephalogram of awake and drowsy adult. During the study, neither electroencephalographic paroxysmal activities nor focal strain noted. Raymond Arzola MD
[2017-02-20 08:10] VITALS: PULSE 70; O2SAT 100
== END 2017-02-17 20:40 | disposition home or self-care (01) ==
LOC: H.ER 14:08 → H.ERHOLD 16:36 → H.TEL 18:51
PROVIDERS: ADMIT Internal Medicine; ATTEND Internal Medicine
DX: R56.9 Unspecified convulsions (principal); M32.9 Systemic lupus erythematosus, unspecified; G47.30 Sleep apnea, unspecified; E03.9 Hypothyroidism, unspecified; E78.5 Hyperlipidemia, unspecified; J44.9 Chronic obstructive pulmonary disease, unspecified; N18.9 Chronic kidney disease, unspecified; I12.9 Hypertensive chronic kidney disease with stage 1 through stage 4 chronic kidney disease, or unspecified chronic kidney disease; M06.9 Rheumatoid arthritis, unspecified; M81.0 Age-related osteoporosis without current pathological fracture; M19.90 Unspecified osteoarthritis, unspecified site; Z91.19 Patient's noncompliance with other medical treatment and regimen; Z96.652 Presence of left artificial knee joint; Z79.82 Long term (current) use of aspirin; Z87.442 Personal history of urinary calculi; Z91.041 Radiographic dye allergy status; Z88.6 Allergy status to analgesic agent
CPT/HCPCS: 70552; 71020; 78582; 80053; 82948; 84443; 84484; 85025; 85378; 85610; 85730; 93005; 93970; 95816; 96372; 99285; A9524; A9567; A9579; G0378; J1650; J7040

== ENCOUNTER 2017-12-09 15:54 | Emergency (ER) | payer MEDICARE ==
[2017-12-09 15:55] VITALS: BMI 36.8
[2017-12-09 16:01] VITALS: BP 151/67; PULSE 91; RESP 18; TEMP 98.1; O2SAT 98
--- NOTE | 2017-12-09 17:21 | ED PDOC ---
Lower Extremity Pain/Injury <Gianni Ford Y - Last Filed: 12/09/17 19:07> Chief Complaint (Provider): leg swelling/pain History Per: Patient Onset/Duration Of Symptoms: Days (3) Current Symptoms Are (Timing): Still Present Additional Complaint(s): 62 yo F, with hx SLE, OA, sleep apnea, bilateral knee replacements in 2014/2015 , septic arthritis, presented to ED as referred by PMD Dr. Richter for evaluation of L lower ext pain/edema. Pt states 3 days ago she noticed her knee and leg below knee swelling, and noticed pain accompanying swelling. She is able to bear weight but states it is painful; walks with a cane. Otherwise denies headache, dyspnea, chest pain, abdominal discomfort/GI upset. <Felicia Armstrong - Last Filed: 12/09/17 20:49> <Pavel Hamilton - Last Filed: 12/10/17 03:08> Chief Complaint (Nursing): Lower Extremity Problem/Injury Supervising Attending Note - Attestation: I have personally seen and examined this patient.: Yes I have fully participated in the care of the patient.: Yes I have reviewed all pertinent clinical information, including history, physical exam and plan: Yes <Pavel Hamilton - Last Filed: 12/10/17 03:08> Past Medical History Vital Signs: Last Vital Signs Temp 98.1 F 12/09/17 15:58 Pulse 91 H 12/09/17 15:58 Resp 18 12/09/17 15:58 BP 151/67 H 12/09/17 15:58 Pulse Ox 98 12/09/17 17:29 <Gianni Ford Y - Last Filed: 12/09/17 19:07> Vital Signs: Last Vital Signs Temp 98.1 F 12/09/17 15:58 Pulse 91 H 12/09/17 15:58 Resp 18 12/09/17 15:58 BP 151/67 H 12/09/17 15:58 Pulse Ox 98 12/09/17 15:58 - Medical History PMH: Anemia, Anxiety, Arthritis, Back Problems (HERNIATED DISC), Bronchitis, COPD, Depression, Deep Vein Thrombosis, Gastritis, HTN, Hypercholesterolemia, Hypothyroidism, Kidney Stones, Osteoporosis, Chronic Kidney Disease, Rheumatoid Arthritis (LUPUS), Sleep Apnea (uses machine) Denies: HIV - Surgical History Surgical History: Hernia Repair Other surgeries: bilateral knee replacement - Family History Family History: States: Unknown Family Hx - Immunization History Hx Tetanus Toxoid Vaccination: No Hx Influenza Vaccination: Yes Hx Pneumococcal Vaccination: No <Felicia Armstrong - Last Filed: 12/09/17 20:49> Vital Signs: Last Vital Signs Temp 98.1 F 12/09/17 15:58 Pulse 91 H 12/09/17 15:58 Resp 18 12/09/17 15:58 BP 151/67 H 12/09/17 15:58 Pulse Ox 98 12/09/17 20:49 <Pavel Hamilton - Last Filed: 12/10/17 03:08> - Home Medications Home Medications: Ambulatory Orders Medication Instructions Recorded Aspirin [Ecotrin] 81 mg PO DAILY 02/10/17 Cholecalciferol (Vitamin D3) 2,000 unit PO DAILY 02/10/17 [Vitamin D3] Folic Acid 1 mg PO DAILY 02/10/17 Hydroxychloroquine Sulfate 200 mg PO BID 02/10/17 [Plaquenil] Thiamine [Vitamin B1 Tab] 100 mg PO DAILY 02/10/17 amLODIPine [Norvasc] 5 mg PO DAILY 02/10/17 Levothyroxine [Synthroid] 125 mcg PO DAILY@0630 tab 02/11/17 Levetiracetam 750 mg PO BID 02/16/17 Fluticasone/Salmeterol [Advair 1 each IH BID 10/29/17 250-50 Diskus] - Allergies Allergies/Adverse Reactions: Allergies Allergy/AdvReac Type Severity Reaction Status Date / Time prednisone Allergy Severe URTICARIA Verified 07/30/17 09:59 codeine Allergy RASH Verified 07/30/17 09:59 iodine AdvReac RASH Verified 07/30/17 09:59 Wells Criteria for PE - Wells Criteria for Pulmonary Embolism Clinical Signs and Symptoms of DVT: No P.E is #1 Diagnosis, or Equally Likely: No Heart Rate >100: No Immobilization at least 3 days;Surgery previous 4 weeks: No Hemoptysis: No Malignancy w/treatment within 6 months, or palliative: No Total Score: 0 <Felicia Armstrong - Last Filed: 12/09/17 20:49> Review of Systems ROS Statement: Except As Marked, All Systems Reviewed And Found Negative (as in HPI) <Felicia Armstrong - Last Filed: 12/09/17 20:49> Physical Exam - Physical Exam Appears: Positive for: Non-toxic Head Exam: Positive for: NORMAL INSPECTION Skin: Positive for: Normal Color, Warm, Dry Eye Exam: Positive for: Normal appearance Cardiovascular/Chest: Positive for: Regular Rate, Rhythm, Chest Non Tender Respiratory: Positive for: Normal Breath Sounds. Negative for: Accessory Muscle Use, Respiratory Distress Pulses-Dorsalis Pedis (L): 2+ Pulses-Dorsalis Pedis (R): 2+ Pulses-Radial (L): 2+ Pulses-Radial (R): 2+ Gastrointestinal/Abdominal: Positive for: Bowel Sounds, Soft Extremity: Positive for: Tenderness (below L knee joint), Swelling (R >L), Other (scars consistent with knee replacements seen on knees, bilaterally). Negative for: Deformity Neurologic/Psych: Positive for: Alert, Oriented. Negative for: Motor/Sensory Deficits <Felicia Armstrong - Last Filed: 12/09/17 20:49> - Laboratory Results Result Diagrams: 12/09/17 19:30 12/09/17 19:30 - ECG O2 Sat by Pulse Oximetry: 98 <Felicia Armstrong - Last Filed: 12/09/17 20:49> - Laboratory Results Result Diagrams: 12/09/17 19:30 12/09/17 19:30 <AlfonsoPavel - Last Filed: 12/10/17 03:08> Medical Decision Making Medical Decision Making: Patient is complaining of left knee pain s/p total knee replacement surgery by Dr. Barrett. Pt. is complaining of chills but denies any fever. 19:00 -Patient signed out to Dr. Hamilton pending labs and reevaluation. <Gianni Ford - Last Filed: 12/09/17 19:07> Medical Decision Making: - Knee Xray - Lower ext doppler - Tylenol 650 mg PO XRay: IMPRESSION: Prior left total knee replacement hardware in situ. No overt pattern to suggest loosening or rotation of local bony interface. LE dopper: IMPRESSION: No sonographic evidence of DVT in left lower extremity. CBC and CMP were drawn; unremarkable. Blood cx drawn as well; to be followed up. Dr. Hamilton spoke to pt's PMD, Dr. Richter. Pt ok for d/c, to follow up with Dr. Barrett regarding knee pain. <Felicia Armstrong - Last Filed: 12/09/17 20:49> Disposition <LilianaGianni Dorcas - Last Filed: 12/09/17 19:07> - Patient ED Disposition Is Patient to be Admitted: No - Disposition Disposition: Routine/Home Disposition Time: 20:49 <Felicia Armstrong - Last Filed: 12/09/17 20:49> <Pavel Hamilton - Last Filed: 12/10/17 03:08> - Clinical Impression Clinical Impression: Knee pain, Knee pain, left - Disposition Referrals: Elpidio Barrett III, MD [Staff Provider] - Condition: STABLE Additional Instructions: You MUST followup with Dr. Barrett as soon as possible. Instructions: Chronic Knee Pain Forms: [facility] (Occitan) Print Language: TELUGU
--- NOTE | 2017-12-09 17:53 | US ---
Date of service: 12/09/2017 HISTORY: Edema. PRIORS: None. FINDINGS: 2-D, color and duplex Doppler analysis of the lower extremity venous circulation using routine protocol from the femoral veins through the popliteal veins. Venous compressibility: Normal. Flow and augmentation patterns: Normal. Visualized veins upper third of calf: Normal. Kumar cyst: None. There is diffuse subcutaneous edema in the ankle. IMPRESSION: No sonographic or Doppler evidence for DVT in left lower extremity.
--- NOTE | 2017-12-09 18:36 | RAD ---
Date of service: 12/09/2017 PROCEDURE: Left Knee Radiographs. HISTORY: Pain. COMPARISON: None. FINDINGS: BONES: No acute fracture or destructive bony lesion identified. JOINTS: Patient status post left total knee replacement with distal femoral and proximal tibial hardware appearing intact without sign of disruption or loosening. The patella appears grossly nonfocal. JOINT EFFUSION: None. OTHER FINDINGS: None. IMPRESSION: Prior left total knee replacement hardware in situ as discussed above. No overt CT pattern to suggest loosening or rotation of local bony interface. Clinically correlate further.
[2017-12-09 19:56] LABS: BASO # 0.1 K/uL (0.0-0.2); BASO % 0.8 % (0.0-2.0); EOS # 0.2 K/uL (0.0-0.7); EOS % 3.1 % (0.0-4.0); HEMOGLOBIN 12.6 g/dL (12.0-16.0); LYMPH # 1.2 K/uL (1.0-4.3); LYMPH % 18.9 % (20.0-40.0); MEAN CELL VOLUME 93.9 fl (81.0-99.0); MEAN CORPUSCULAR HEMOGLOBIN 32.1 pg (27.0-31.0); MEAN CORPUSCULAR HGB CONC 34.1 g/dL (33.0-37.0); MEAN PLATELET VOLUME 8.9 fl (7.2-11.7); MONO # 0.6 K/uL (0.0-0.8); MONO % 8.9 % (0.0-10.0); NEUT # 4.2 K/uL (1.8-7.0); NEUT % 68.3 % (50.0-75.0); RBC 3.94 Mil/uL (3.80-5.20); WHITE BLOOD COUNT 6.2 K/uL (4.8-10.8)
[2017-12-09 20:13] LABS: ALB/GLOB RATIO 1.2 (1.0-2.1); ALBUMIN 4.3 g/dL (3.5-5.0); ALT/SGPT 30 U/L (9-52); AST/SGOT 28 U/L (14-36); BLOOD UREA NITROGEN 19 mg/dl (7-17); CALCIUM 9.6 mg/dL (8.4-10.2); GFR AFRICAN-AMERICAN > 60; GFR NON-AFRICAN AMERICAN > 60
== END 2017-12-09 21:05 | disposition home or self-care (01) ==
LOC: H.ER 15:54
DX: M25.562 Pain in left knee (principal); E03.9 Hypothyroidism, unspecified; I12.9 Hypertensive chronic kidney disease with stage 1 through stage 4 chronic kidney disease, or unspecified chronic kidney disease

== ENCOUNTER 2018-02-02 09:55 | Inpatient (IN) | payer MEDICARE ==
[2018-02-02 09:58] VITALS: BMI 38.7
--- NOTE | 2018-02-02 11:20 | RAD ---
Date of service: 02/02/2018 HISTORY: ROUTINE COMPARISON: 02/17/2017 FINDINGS: LUNGS: No active pulmonary disease. PLEURA: No significant pleural effusion identified, no pneumothorax apparent. CARDIOVASCULAR: Normal. OSSEOUS STRUCTURES: No significant abnormalities. VISUALIZED UPPER ABDOMEN: Normal. OTHER FINDINGS: None. IMPRESSION: No active disease. No interval pathology appreciated
[2018-02-02 11:55] LABS: SQUAMOUS EPITHIAL < 1 /hpf (0-5); URINE BILIRUBIN NEGATIVE (NEGATIVE); URINE BLOOD NEGATIVE (NEGATIVE); URINE CLARITY CLEAR (Clear); URINE COLOR YELLOW (YELLOW); URINE GLUCOSE (UA) NEG (Normal); URINE LEUKOCYTE ESTERASE NEG Leu/uL (Negative); URINE PROTEIN NEGATIVE (NEGATIVE); URINE UROBILINOGEN 0.2-1.0 mg/dL (0.2-1.0)
[2018-02-02 12:04] LABS: BASO # 0.1 K/uL (0.0-0.2); BASO % 1.3 % (0.0-2.0); EOS # 0.2 K/uL (0.0-0.7); HEMOGLOBIN 12.8 g/dL (12.0-16.0); LYMPH # 1.1 K/uL (1.0-4.3); LYMPH % 21.5 % (20.0-40.0); MEAN CELL VOLUME 91.9 fl (81.0-99.0); MEAN CORPUSCULAR HEMOGLOBIN 32.1 pg (27.0-31.0); MEAN CORPUSCULAR HGB CONC 34.9 g/dL (33.0-37.0); MEAN PLATELET VOLUME 8.8 fl (7.2-11.7); MONO # 0.5 K/uL (0.0-0.8); MONO % 9.4 % (0.0-10.0); NEUT # 3.2 K/uL (1.8-7.0); NEUT % 63.8 % (50.0-75.0); NRBC % 0.2 % (0.0-0.0)
--- NOTE | 2018-02-02 12:04 | ED PDOC ---
Syncope/Near Syncope/Dizziness Time Seen by Provider: 02/02/18 11:02 Chief Complaint (Nursing): Dizziness/Lightheaded Chief Complaint (Provider): SYNCOPE History Per: Patient (62 Y/O FEMALE H/O SLE/HTN/?SEIZURE HX HERE WITH EPISODES OF SYNCOPE SINCE 01/18/2018. PATIENT STATES SHE NOTES HEART RACING ASSOCIATED WITH DIZZINESS AND SUBSEQUENT SYNCOPAL EPISODE. WAS TO HAVE STRESS TEST 02/[address] RICHTER TO COME TO ED FOR REPEAT SYNCOPAL EPISODE. HAS HAD SYNCOPAL EPISODE TODAY. DENIES ANY VOMITING/FEVERS/CHILLS/DIARRHEA.) Past Medical History Reviewed: Historical Data, Nursing Documentation, Vital Signs Vital Signs: Last Vital Signs Temp 97.3 F L 02/02/18 09:58 Pulse 77 02/02/18 09:58 Resp 17 02/02/18 09:58 BP 141/90 02/02/18 09:58 Pulse Ox 97 02/02/18 10:00 - Medical History PMH: Anemia, Anxiety, Arthritis, Back Problems (HERNIATED DISC), Bronchitis, COPD, Depression, Deep Vein Thrombosis, Gastritis, HTN, Hypercholesterolemia, Hypothyroidism, Kidney Stones, Osteoporosis, Chronic Kidney Disease, Rheumatoid Arthritis, Sleep Apnea (uses machine) Denies: HIV - Surgical History Surgical History: Hernia Repair - Family History Family History: States: Unknown Family Hx - Immunization History Hx Tetanus Toxoid Vaccination: No Hx Influenza Vaccination: Yes Hx Pneumococcal Vaccination: No - Home Medications Home Medications: Ambulatory Orders Medication Instructions Recorded Aspirin [Ecotrin] 81 mg PO DAILY 02/10/17 Cholecalciferol (Vitamin D3) 2,000 unit PO DAILY 02/10/17 [Vitamin D3] Folic Acid 1 mg PO DAILY 02/10/17 Hydroxychloroquine Sulfate 200 mg PO BID 02/10/17 [Plaquenil] Thiamine [Vitamin B1 Tab] 100 mg PO DAILY 02/10/17 amLODIPine [Norvasc] 5 mg PO DAILY 02/10/17 Levothyroxine [Synthroid] 125 mcg PO DAILY@0630 tab 02/11/17 Levetiracetam 750 mg PO BID 02/16/17 Fluticasone/Salmeterol [Advair 1 each IH BID 10/29/17 250-50 Diskus] Ferrous Gluconate [Iron] 325 mg PO BID 02/02/18 Fluticasone/Umeclidin/Vilanter 1 each IH DAILY 02/02/18 [Trelegy Ellipta 100-62.5-25] Hydrochlorothiazide [Microzide] 12.5 mg PO DAILY 02/02/18 Roflumilast [Daliresp] 500 mcg PO DAILY 02/02/18 - Allergies Allergies/Adverse Reactions: Allergies Allergy/AdvReac Type Severity Reaction Status Date / Time prednisone Allergy Severe URTICARIA Verified 02/02/18 10:00 codeine Allergy RASH Verified 02/02/18 10:00 iodine AdvReac RASH Verified 02/02/18 10:00 Review of Systems ROS Statement: Except As Marked, All Systems Reviewed And Found Negative Neurological: Positive for: Dizziness, Other (SYNCOPE) Physical Exam - Reviewed Nursing Documentation Reviewed: Yes Vital Signs Reviewed: Yes - Physical Exam Appears: Positive for: Well, Non-toxic, No Acute Distress Head Exam: Positive for: ATRAUMATIC, NORMAL INSPECTION, NORMOCEPHALIC Skin: Positive for: Normal Color, Warm, DRY Eye Exam: Positive for: EOMI, Normal appearance, PERRL ENT: Positive for: Normal ENT Inspection Neck: Positive for: Normal, Painless ROM Cardiovascular/Chest: Positive for: Regular Rate, Rhythm Respiratory: Positive for: CNT, Normal Breath Sounds Gastrointestinal/Abdominal: Positive for: Normal Exam, Soft Back: Positive for: Normal Inspection Extremity: Positive for: Normal ROM Neurologic/Psych: Positive for: Alert, Oriented - Laboratory Results Result Diagrams: 02/02/18 11:42 02/02/18 11:42 - ECG ECG Rhythm: Positive for: Sinus Rhythm (NSR 71BPM; OCCASIONAL PVC NOTED; NO ACUTE CHANGES) O2 Sat by Pulse Oximetry: 97 - Progress ED Course And Treament: Head ct w/o contrast: wnl d/w Dr. Richter Cardiology consult/ neurology consults/ ECHO/ carotid doppler. cxr: nad Disposition - Clinical Impression Clinical Impression: Syncope - Patient ED Disposition Is Patient to be Admitted: Yes - Disposition Disposition Time: 13:42 Condition: FAIR - Pt Status Changed To: Hospital Disposition Of: Observation
--- NOTE | 2018-02-02 12:07 | CT ---
Date of service: 02/02/2018 PROCEDURE: CT HEAD WITHOUT CONTRAST. HISTORY: AMS COMPARISON: 02/10/2017 TECHNIQUE: Axial computed tomography images were obtained through the head/brain without intravenous contrast. Radiation dose: Total exam DLP = 814 mGy-cm. This CT exam was performed using one or more of the following dose reduction techniques: Automated exposure control, adjustment of the mA and/or kV according to patient size, and/or use of iterative reconstruction technique. FINDINGS: HEMORRHAGE: No intracranial hemorrhage. BRAIN: No mass effect or edema. No atrophy or chronic microvascular ischemic changes. VENTRICLES: Unremarkable. No hydrocephalus. CALVARIUM: Unremarkable. PARANASAL SINUSES: Unremarkable as visualized. No significant inflammatory changes. MASTOID AIR CELLS: Unremarkable as visualized. No inflammatory changes. OTHER FINDINGS: None. IMPRESSION: Normal CT of the Head.
[2018-02-02 12:11] LABS: ALB/GLOB RATIO 1.2 (1.0-2.1); ALBUMIN 4.1 g/dL (3.5-5.0); ALT/SGPT 24 U/L (9-52); AST/SGOT 26 U/L (14-36); BLOOD UREA NITROGEN 21 mg/dl (7-17); GFR NON-AFRICAN AMERICAN > 60
[2018-02-02 12:22] LABS: B-TYPE NATRIURETIC PEPTIDE 76.7 pg/ml (0-900)
--- NOTE | 2018-02-02 16:33 | US ---
Date of service: 02/02/2018 PROCEDURE: Duplex ultrasound of the carotid and vertebral arteries. HISTORY: syncope COMPARISON: None available. TECHNIQUE: Grayscale and duplex Doppler evaluation of the cervical carotid and vertebral arteries were performed. The common carotid, carotid bifurcations and cervical ICA and proximal ECA were evaluated. The vertebral arteries were evaluated for gross patency and direction. FINDINGS: RIGHT CAROTID ARTERIES: Common Carotid Artery: Normal. Maximal flow velocity of 90.0 cm/s. Carotid Bifurcation: Normal. Internal Carotid Artery:Normal. Maximal flow velocity of 76.2 cm/s. External Carotid Artery (proximal branches): Normal. Maximal flow velocity of 59.6 cm/s. ICA/CCA Ratio: 0.8 LEFT CAROTID ARTERIES: Common Carotid Artery: Normal. Maximal flow velocity of 99.8 cm/s. Carotid Bifurcation: Normal. Internal Carotid Artery:Normal. Maximal flow velocity of 77.4 cm/s. External Carotid Artery (proximal branches): Normal. Maximal flow velocity of 73.0 cm/s. ICA/CCA Ratio: 1.4 VERTEBRAL ARTERIES: Right Vertebral Artery: Patent. Antegrade flow. Left Vertebral Artery: Retrograde flow. OTHER FINDINGS: None. IMPRESSION: 1. No evidence of hemodynamically significant stenosis in the internal carotid arteries. 2. Patent right vertebral artery with antegrade flow. 3. Retrograde flow in the left vertebral artery. Findings could be related to proximal obstruction. Dedicated CTA of the head and neck would be helpful for further evaluation.
--- NOTE | 2018-02-02 16:49 | CARD ---
APPROVED REPORT Date of service: 02/02/2018 EXAM: Two-dimensional and M-mode echocardiogram with Doppler and color Doppler. Other Information Quality : GoodRhythm : NSR INDICATION Syncope 2D DIMENSIONS IVSd0.85 (0.7-1.1cm)LVDd4.66 (3.9-5.9cm) LVOT Diameter2.09 (1.8-2.4cm)PWd1.11 (0.7-1.1cm) IVSs1.17 (0.8-1.2cm)LVDs3.63 (2.5-4.0cm) FS (%) 22.1 %PWs1.45 (0.8-1.2cm) M-Mode DIMENSIONS Left Atrium (MM)3.58 (2.5-4.0cm)IVSd0.85 (0.7-1.1cm) Aortic Root3.60 (2.2-3.7cm)Aortic Cusp Exc.1.85 (1.5-2.0cm) IVSs1.38 cmFS (%) 42 % LVDs3.64 (2.0-3.8cm)PWs1.74 cm Aortic Valve AoV Peak Qecacfvi543.2cm/sAoV VTI34.6cmAO Peak GR.10mmHg LVOT Peak Krvvwkza358.8cm/sLVOT VTI25.76cmAO Mean GR.6mmHg Mitral Valve MV E Wawgxjuu76.1cm/sMV DECEL [id number] A Zmjytbko62.2cm/s MV MYG48anJ/A ratio0.9MVA (PHT)3.52cm2 TDI Lateral E' Peak V10.67cm/sMedial E' Peak V7.90cm/sE/Lateral E'8.0 E/Medial E'10.8 Pulmonary Valve PV Peak Uwadcdbf67.2cm/s Tricuspid Valve TR Peak Bpdtjrrb474ps/sRAP OTJVNALC21jgRoWL Peak Gr.29mmHg HCKF42rgRm LEFT VENTRICLE The left ventricle is normal size. There is normal left ventricular wall thickness. The left ventricular systolic function is normal. The estimated ejection fraction is 60% No regional wall motion abnormalities noted.. Transmitral Doppler flow pattern is Grade I-abnormal relaxation pattern. No left ventricle thrombus noted on this study. There is no ventricular septal defect visualized. There is no mass noted in the left ventricle. RIGHT VENTRICLE The right ventricle is normal size. There is normal right ventricular wall thickness. The right ventricular systolic function is normal. ATRIA The left atrium size is normal. The right atrium size is normal. The interatrial septum is intact with no evidence for an atrial septal defect. AORTIC VALVE The aortic valve is normal in structure. Mild aortic regurgitation is present. There is no aortic valvular stenosis. MITRAL VALVE The mitral valve is normal in structure. There is no mitral valve stenosis. There is trivial mitral valve regurgitation noted. TRICUSPID VALVE The tricuspid valve is normal in structure. There is trivial to mild tricuspid valve regurgitation noted. PASP mildly elevated PULMONIC VALVE The pulmonary valve is normal in structure. There is no pulmonic valvular regurgitation. GREAT VESSELS The aortic root is normal in size. The ascending aorta is normal in size. The pulmonary artery is normal. The IVC is normal in size and collapses >50% with inspiration. PERICARDIAL EFFUSION There is no pericardial effusion. <Conclusion> Mild aortic insufficiency Trivial to mild TR with mild pulmonary hypertension Normal LV systolic function with doppler hemodynamics consistent with abnormal relaxation The estimated ejection fraction is 60%
--- NOTE | 2018-02-02 23:19 | CARD ---
APPROVED REPORT Date of service: 02/02/2018 EKG Measurement Heart [id number] <Conclusion> Sinus rhythm with frequent premature ventricular complexes Minimal voltage criteria for LVH, may be normal variant Cannot rule out Anterior infarct, age undetermined Abnormal ECG
[2018-02-03] MEDS: Fluticasone-Salmeterol 250-50mcg Diskus IH SCH ×2 (08:02→16:16)
[2018-02-03 09:38] LABS: PROTHROMBIN TIME 11.2 Seconds (9.8-13.1)
[2018-02-03 09:41] LABS: PARTIAL THROMBOPLASTIN TIME 32.8 Seconds (25.6-37.1)
[2018-02-03 09:45] LABS: BLOOD UREA NITROGEN 18 mg/dl (7-17); CALCIUM 10.2 mg/dL (8.4-10.2); GFR NON-AFRICAN AMERICAN > 60
--- NOTE | 2018-02-03 12:34 | CP.PCM.HP ---
History of Present Illness - History of Present Illness History of Present Illness: 62 y/o female with hx of SLE, COPD, morbid obesity, seizure, htn. She c/o several episodes of syncope for the past few weeks. She was hospitalized recently with no definitive dx of her condition. The day of admission she had an episode of syncope and she presented in ER for further evaluation. She was placed on telemetry that reveled several episodes of bradycardia associated with migraine and CP, constrictive with irradiation to the lt arm. The pain is at rest. Initially she was placed on obs. Will change to regular admission for recurrent syncope with susan arrhythmia and CP she will need continue monitoring and clinical intervention beyond obs. Will follow with cardiology and neurology. Present on Admission - Present on Admission Any Indicators Present on Admission: No Review of Systems - Review of Systems Systems not reviewed;Unavailable: Unstable Vital Signs - Constitutional Constitutional: Headache, Malaise - EENT Eyes: As Per HPI - Cardiovascular Cardiovascular: Chest Pain, Chest Pain at Rest, Dyspnea, Dyspnea on Exertion, Edema, Irregular Heart Rhythm, Syncope - Respiratory Respiratory: Dyspnea, Dyspnea on Exertion - Gastrointestinal Gastrointestinal: As Per HPI - Musculoskeletal Musculoskeletal: Arthralgias, Limited Range of Motion - Integumentary Integumentary: As Per HPI - Neurological Neurological: Syncope, Vertigo, Weakness - Psychiatric Psychiatric: As Per HPI - Endocrine Endocrine: As Per HPI Past Patient History - Infectious Disease Hx of Infectious Diseases: None - Past Medical History & Family History Past Medical History?: Yes - Past Social History Smoking Status: Never Smoked - CARDIAC Hx Cardiac Disorders: Yes Hx Hypercholesterolemia: Yes Hx Hypertension: Yes - PULMONARY Hx Respiratory Disorders: Yes Hx Bronchitis: Yes Hx Chronic Obstructive Pulmonary Disease (COPD): Yes Hx Sleep Apnea: Yes (uses machine) - NEUROLOGICAL Hx Neurological Disorder: Yes Hx Dizziness: Yes Hx Seizures: Yes Hx Syncope: Yes Hx Vertigo: Yes - HEENT Hx HEENT Problems: No - RENAL Hx Chronic Kidney Disease: Yes Hx Kidney Stones: Yes - ENDOCRINE/METABOLIC Hx Endocrine Disorders: Yes Hx Hypothyroidism: Yes - HEMATOLOGICAL/ONCOLOGICAL Hx Blood Disorders: Yes Hx AIDS: No Hx Anemia: Yes Hx Human Immunodeficiency Virus (HIV): No - INTEGUMENTARY Hx Dermatological Problems: No - MUSCULOSKELETAL/RHEUMATOLOGICAL Hx Musculoskeletal Disorders: Yes Hx Arthritis: Yes Hx Falls: No Hx Osteoporosis: Yes Hx Rheumatoid Arthritis: Yes - GASTROINTESTINAL Hx Gastrointestinal Disorders: Yes Hx Gastritis: Yes - GENITOURINARY/GYNECOLOGICAL Hx Genitourinary Disorders: No - PSYCHIATRIC Hx Psychophysiologic Disorder: Yes Hx Anxiety: Yes Hx Depression: Yes Hx Substance Use: No - SURGICAL HISTORY Hx Surgeries: Yes Hx Herniorrhaphy: Yes Hx Joint Replacement: Yes (Bilateral knee) Hx Thyroidectomy: Yes Other/Comment: . - ANESTHESIA Hx Anesthesia: Yes Hx Anesthesia Reactions: No Hx Malignant Hyperthermia: No Has any member of the family had a problem w/ anesthesia?: No Meds Allergies/Adverse Reactions: Allergies Allergy/AdvReac Type Severity Reaction Status Date / Time prednisone Allergy Severe URTICARIA Verified 02/02/18 10:00 codeine Allergy RASH Verified 02/02/18 10:00 iodine AdvReac RASH Verified 02/02/18 10:00 Physical Exam - Constitutional Appears: Chronically Ill - Head Exam Head Exam: ATRAUMATIC, NORMAL INSPECTION, NORMOCEPHALIC - Eye Exam Eye Exam: Normal appearance - ENT Exam ENT Exam: Mucous Membranes Moist - Neck Exam Neck exam: Positive for: Full Rom - Respiratory Exam Respiratory Exam: Decreased Breath Sounds - Cardiovascular Exam Cardiovascular Exam: Bradycardia, REGULAR RHYTHM, +S1, +S2 - GI/Abdominal Exam GI & Abdominal Exam: Normal Bowel Sounds - Extremities Exam Extremities exam: Positive for: pedal edema - Neurological Exam Neurological exam: Alert, CN II-XII Intact, Oriented x3 - Psychiatric Exam Psychiatric exam: Normal Affect - Skin Skin Exam: Normal Color Results - Vital Signs Recent Vital Signs: Last Vital Signs Temp 97.7 F 02/03/18 11:58 Pulse 77 02/03/18 11:58 Resp 20 02/03/18 11:58 BP 117/67 02/03/18 11:58 Pulse Ox 98 02/03/18 11:58 - Labs Result Diagrams: 02/02/18 11:42 02/03/18 09:24 Labs: Laboratory Results - last 24 hr 02/03/18 02/03/18 02/03/18 09:24 09:24 09:24 PT 11.2 INR 1.0 APTT 32.8 Sodium 140 Potassium 4.7 Chloride 101 Carbon Dioxide 32 H Anion Gap 12 BUN 18 H Creatinine 0.9 Est GFR ( Amer) > 60 Est GFR (Non-Af Amer) > 60 Random Glucose 159 H Hemoglobin A1c Calcium 10.2 Vitamin B12 564 TSH 3rd Generation 1.58 Cortisol AM Sample 13.4 02/03/18 09:24 PT INR APTT Sodium Potassium Chloride Carbon Dioxide Anion Gap BUN Creatinine Est GFR ( Amer) Est GFR (Non-Af Amer) Random Glucose Hemoglobin A1c 5.5 Calcium Vitamin B12 TSH 3rd Generation Cortisol AM Sample Assessment & Plan (1) Bradycardia Status: Acute (2) Syncope Status: Acute (3) Chest pain Status: Acute (4) Costochondral chest pain Status: Acute (5) Dyspnea Status: Acute (6) Seizure Status: Acute (7) Osteoarthritis Status: Chronic - Assessment and Plan (Free Text) Plan: As per orders.
[2018-02-03 16:33] LABS: FOLATE > 20.0 ng/mL
--- NOTE | 2018-02-03 18:56 | CP.PCM.CON ---
<Marcia Townsend - Last Filed: 02/03/18 19:01> History of Present Illness - History of Present Illness History of Present Illness: CARDIOLOGY CONSULT NOTE FOR DR. LEYDA Townsend D.O. PGY-1 Mrs. Street is a 62 y/o F with pmhx of SLE, seizure, HLD, HTN, COPD, Hypothyroidism, OA s/p b/l TKR who presents with complaints of recurrent episodes of dizziness and syncope. Pt has most recently experienced and episode of syncope on 01/30/18 when she was standing at a restaurant, and had loss consciousness. She reports she was standing next to a wall when she noticed blurry vision, with distant noises, and eventually slid down the wall. During the event, she felt her heart racing with palpitations. Sister, who was present during the event and present at bedside reports pt had no tongue biting, secretions from mouth, urinary/stool incontinence and was unconscious for about 10 minutes. Pt reports that when she woke up , she was felt normal again without any confusion, weakness or focal neurological deficits. She reports that she has had similar episodes several times before, and was most recently admitted at [facility] for a similar episode. She also reports occasional sharp, sub-sternal chest pain at rest with radiation into the left arm at rest while laying down. She was scheduled for a stress test on 02/04/18. Upon interview, pt denies fevers, chills, headache, dizziness, nausea, vomiting , numbness, tingling, weakness, chest pain, palpitations, shortness of breath, diophoresis, constipation, diarrhea, dysuria. Pmhx: SLE, seizure, HLD, HTN, COPD, Hypothyroidism All: Prednisone (diffuse swelling) PSH: b/l TKR w/ septic arthritis (R knee) SH: Denies smoking, social drinker Hosp: [facility]-Syncope/Dizziness (01/18/18), FH: Mother: DM, "heart failure" Father: "heart failure" Meds: See MAR- reviewed PMD: Dr. Richter. Cardio: Dr. Nagy EKG (02/02/18): Sinus rhythm with frequent premature ventricular complexes. Minimal voltage criteria for LVH, may be normal variant. Cannot rule out anterior infarct, age undetermined Echo (02/02/18): Mild aortic insufficiency. Trivial to mild TR with mild pulmonary hypertension. Normal LV systolic function with doppler hemodynamics consistent with abnormal relaxation. The estimated ejection fraction is 60%. Carotid artery ultrasound (02/02/18): No evidence of hemodynamically significant stenosis in the internal carotid arteries. Patent right vertebral artery with antegrade flow. Retrograde flow in the left vertebral artery. Findings could be related to proximal obstruction. Dedicated CTA of the head and neck would be helpful for further evaluation. Review of Systems - Review of Systems Review of Systems: as per HPI Past Patient History - Infectious Disease Hx of Infectious Diseases: None - Past Medical History & Family History Past Medical History?: Yes - Past Social History Smoking Status: Never Smoked - CARDIAC Hx Cardiac Disorders: Yes Hx Hypercholesterolemia: Yes Hx Hypertension: Yes - PULMONARY Hx Respiratory Disorders: Yes Hx Bronchitis: Yes Hx Chronic Obstructive Pulmonary Disease (COPD): Yes Hx Sleep Apnea: Yes (uses machine) - NEUROLOGICAL Hx Neurological Disorder: Yes Hx Dizziness: Yes Hx Seizures: Yes Hx Syncope: Yes Hx Vertigo: Yes - HEENT Hx HEENT Problems: No - RENAL Hx Chronic Kidney Disease: Yes Hx Kidney Stones: Yes - ENDOCRINE/METABOLIC Hx Endocrine Disorders: Yes Hx Hypothyroidism: Yes - HEMATOLOGICAL/ONCOLOGICAL Hx Blood Disorders: Yes Hx AIDS: No Hx Anemia: Yes Hx Human Immunodeficiency Virus (HIV): No - INTEGUMENTARY Hx Dermatological Problems: No - MUSCULOSKELETAL/RHEUMATOLOGICAL Hx Musculoskeletal Disorders: Yes Hx Arthritis: Yes Hx Falls: No Hx Osteoporosis: Yes Hx Rheumatoid Arthritis: Yes - GASTROINTESTINAL Hx Gastrointestinal Disorders: Yes Hx Gastritis: Yes - GENITOURINARY/GYNECOLOGICAL Hx Genitourinary Disorders: No - PSYCHIATRIC Hx Psychophysiologic Disorder: Yes Hx Anxiety: Yes Hx Depression: Yes Hx Substance Use: No - SURGICAL HISTORY Hx Surgeries: Yes Hx Herniorrhaphy: Yes Hx Joint Replacement: Yes (Bilateral knee) Hx Thyroidectomy: Yes Other/Comment: . - ANESTHESIA Hx Anesthesia: Yes Hx Anesthesia Reactions: No Hx Malignant Hyperthermia: No Has any member of the family had a problem w/ anesthesia?: No Meds Allergies/Adverse Reactions: Allergies Allergy/AdvReac Type Severity Reaction Status Date / Time prednisone Allergy Severe URTICARIA Verified 02/02/18 10:00 codeine Allergy RASH Verified 02/02/18 10:00 iodine AdvReac RASH Verified 02/02/18 10:00 - Medications Medications: Current Medications Acetaminophen (Tylenol 325mg Tab) 650 mg PO Q4 PRN PRN Reason: Headache Last Admin: 02/03/18 10:18 Dose: 650 mg Amlodipine Besylate (Norvasc) 5 mg PO DAILY [facility] Last Admin: 02/03/18 08:01 Dose: 5 mg Aspirin (Ecotrin) 81 mg PO DAILY [facility] Last Admin: 02/03/18 08:02 Dose: 81 mg Enoxaparin Sodium (Lovenox) 40 mg SC DAILY [facility] PRN Reason: Protocol Ferrous Gluconate (Fergon) 324 mg PO BID [facility] Last Admin: 02/03/18 16:17 Dose: 324 mg Folic Acid (Folic Acid) 1 mg PO DAILY [facility] Last Admin: 02/03/18 08:01 Dose: 1 mg Hydrochlorothiazide (Microzide) 12.5 mg PO DAILY [facility] Last Admin: 02/03/18 08:02 Dose: 12.5 mg Hydroxychloroquine Sulfate (Plaquenil) 200 mg PO BID [facility] PRN Reason: Protocol Last Admin: 02/03/18 16:19 Dose: 200 mg Levetiracetam (Keppra) 750 mg PO BID [facility] Last Admin: 02/03/18 16:21 Dose: Not Given Levetiracetam (Keppra) 1,000 mg PO BID [facility] Last Admin: 02/03/18 16:18 Dose: 1,000 mg Ramipril (Altace) 5 mg PO DAILY [facility] Roflumilast (Daliresp) 500 mcg PO DAILY [facility] Last Admin: 02/03/18 08:03 Dose: 500 mcg Fluticasone/Salmeterol (Advair Diskus 250/50) 1 puff IH BID [facility] Last Admin: 02/03/18 16:16 Dose: 1 puff Physical Exam - Constitutional Appears: Well, Non-toxic, No Acute Distress - Head Exam Head Exam: ATRAUMATIC, NORMAL INSPECTION, NORMOCEPHALIC - Eye Exam Eye Exam: EOMI, Normal appearance, PERRL. absent: Scleral icterus - ENT Exam ENT Exam: Mucous Membranes Moist, Normal Exam - Neck Exam Neck exam: Positive for: Normal Inspection - Respiratory Exam Respiratory Exam: Rales (SHEREE), NORMAL BREATHING PATTERN - Cardiovascular Exam Cardiovascular Exam: REGULAR RHYTHM, +S1, +S2 - GI/Abdominal Exam GI & Abdominal Exam: Soft. absent: Tenderness - Extremities Exam Extremities exam: Positive for: joint swelling, normal inspection, pedal edema. Negative for: calf tenderness Additional comments: TKR incisions scars noted. well healed - Neurological Exam Neurological exam: Alert, CN II-XII Intact, Oriented x3 - Psychiatric Exam Psychiatric exam: Normal Affect, Normal Mood - Skin Skin Exam: Dry, Intact, Warm Results - Vital Signs Recent Vital Signs: Last Vital Signs Temp 98.1 F 02/03/18 16:09 Pulse 69 02/03/18 16:09 Resp 16 02/03/18 16:09 BP 123/71 02/03/18 16:09 Pulse Ox 98 02/03/18 16:09 - Labs Result Diagrams: 02/02/18 11:42 02/03/18 09:24 Labs: Laboratory Results - last 24 hr 02/03/18 02/03/18 02/03/18 09:24 09:24 09:24 PT INR APTT D-Dimer, Quantitative Sodium 140 Potassium 4.7 Chloride 101 Carbon Dioxide 32 H Anion Gap 12 BUN 18 H Creatinine 0.9 Est GFR ( Amer) > 60 Est GFR (Non-Af Amer) > 60 Random Glucose 159 H Hemoglobin A1c Calcium 10.2 Troponin I Vitamin B12 564 Folate > 20.0 TSH 3rd Generation 1.58 Cortisol AM Sample 13.4 RPR Nonreactive 02/03/18 02/03/18 02/03/18 09:24 09:24 13:00 PT 11.2 INR 1.0 APTT 32.8 D-Dimer, Quantitative 379 H Sodium Potassium Chloride Carbon Dioxide Anion Gap BUN Creatinine Est GFR ( Amer) Est GFR (Non-Af Amer) Random Glucose Hemoglobin A1c 5.5 Calcium Troponin I Vitamin B12 Folate TSH 3rd Generation Cortisol AM Sample RPR 02/03/18 13:30 PT INR APTT D-Dimer, Quantitative Sodium Potassium Chloride Carbon Dioxide Anion Gap BUN Creatinine Est GFR ( Amer) Est GFR (Non-Af Amer) Random Glucose Hemoglobin A1c Calcium Troponin I < 0.0120 Vitamin B12 Folate TSH 3rd Generation Cortisol AM Sample RPR Assessment & Plan - Assessment and Plan (Free Text) Assessment: 62 y/o F with pmhx of SLE, seizure, HLD, HTN, COPD, Hypothyroidism, OA s/p b/l TKR admitted for recurrent syncopal episodes. Cardiology consulted for evaluation. EKG showed NSR with frequent PVCs. Echo showed mild aortic insufficiency. Carotid u/s showed retrograde flow of L vertebral artery with recommendation for CTA of head/neck. Plan: Syncope/Dizziness f/u CTA head/neck Review holter monitor f/u neuro recs: Dr. Kolb PT eval Chest pain Troponin x 3 negative. EKG shows NSR with frequent PVC f/u Holter monitor Stress test? HTN continue home amlodipine, HCTZ, ramipril HLD continue home aspirin HHD SLE continue home hydroxychloroquine Seizure disorder f/u EED continue home Keppra COPD continue home advair continue daliresp DVT/GI ppx: lovenox/protonix Case seen examined and discussed with attending physician, Dr. Nagy <Masoud Nagy - Last Filed: 02/04/18 16:57> Meds - Medications Medications: Current Medications Acetaminophen (Tylenol 325mg Tab) 650 mg PO Q4 PRN PRN Reason: Headache Last Admin: 02/03/18 20:52 Dose: 650 mg Amlodipine Besylate (Norvasc) 5 mg PO DAILY [facility] Last Admin: 02/04/18 09:30 Dose: 5 mg Aspirin (Ecotrin) 81 mg PO DAILY [facility] Last Admin: 02/04/18 09:32 Dose: 81 mg Enoxaparin Sodium (Lovenox) 40 mg SC DAILY [facility] PRN Reason: Protocol Last Admin: 02/04/18 09:31 Dose: 40 mg Ferrous Gluconate (Fergon) 324 mg PO BID [facility] Last Admin: 02/04/18 09:31 Dose: 324 mg Folic Acid (Folic Acid) 1 mg PO DAILY [facility] Last Admin: 02/04/18 09:32 Dose: 1 mg Hydrochlorothiazide (Microzide) 12.5 mg PO DAILY [facility] Last Admin: 02/04/18 09:32 Dose: 12.5 mg Hydroxychloroquine Sulfate (Plaquenil) 200 mg PO BID [facility] PRN Reason: Protocol Last Admin: 02/04/18 09:32 Dose: 200 mg Sodium Chloride (Sodium Chloride 0.45%) 1,000 mls @ 85 mls/hr IV .[id number] [facility] Stop: 02/05/18 11:59 Levetiracetam (Keppra) 1,000 mg PO BID [facility] Last Admin: 02/04/18 09:33 Dose: 1,000 mg Levothyroxine Sodium (Synthroid) 125 mcg PO DAILY@0630 [facility] Pantoprazole Sodium (Protonix Inj) 40 mg IVP DAILY [facility] Last Admin: 02/04/18 09:34 Dose: 40 mg Ramipril (Altace) 5 mg PO DAILY [facility] Last Admin: 02/04/18 09:31 Dose: 5 mg Roflumilast (Daliresp) 500 mcg PO DAILY [facility] Last Admin: 02/04/18 09:31 Dose: 500 mcg Fluticasone/Salmeterol (Advair Diskus 250/50) 1 puff IH BID [facility] Last Admin: 02/04/18 09:29 Dose: 1 puff Thiamine HCl (Vitamin B1 Tab) 100 mg PO DAILY [facility] Results - Vital Signs Recent Vital Signs: Last Vital Signs Temp 97.5 F L 02/04/18 15:47 Pulse 76 02/04/18 15:47 Resp 20 02/04/18 15:47 BP 106/66 02/04/18 15:47 Pulse Ox 98 02/04/18 15:47 - Labs Result Diagrams: 02/04/18 07:59 02/04/18 07:59 Labs: Laboratory Results - last 24 hr 02/03/18 02/03/18 02/03/18 09:24 09:24 09:24 WBC RBC Hgb Hct MCV MCH MCHC RDW Plt Count MPV Neut % (Auto) Lymph % (Auto) Rankin % (Auto) Eos % (Auto) Baso % (Auto) Neut # (Auto) Lymph # (Auto) Rankin # (Auto) Eos # (Auto) Baso # (Auto) Sodium Potassium Chloride Carbon Dioxide Anion Gap BUN Creatinine Est GFR ( Amer) Est GFR (Non-Af Amer) Random Glucose Fructosamine 256 Calcium Phosphorus Magnesium Total Bilirubin AST ALT Alkaline Phosphatase Troponin I NT-Pro-B Natriuret Pep Total Protein Albumin Globulin Albumin/Globulin Ratio [place] Screen Positive H [place] Titer 1:80 H [place] Titer 2 1:80 H [place] Pattern Homogeneous H [place] Pattern 2 Speckled H RPR Nonreactive 02/03/18 02/04/18 02/04/18 20:50 04:20 07:59 WBC 5.4 RBC 4.13 Hgb 13.3 Hct 38.4 MCV 93.0 MCH 32.2 H MCHC 34.7 RDW 13.3 Plt Count 178 MPV 9.3 Neut % (Auto) 57.2 Lymph % (Auto) 27.3 Rankin % (Auto) 9.4 Eos % (Auto) 5.2 H Baso % (Auto) 0.9 Neut # (Auto) 3.1 Lymph # (Auto) 1.5 Rankin # (Auto) 0.5 Eos # (Auto) 0.3 Baso # (Auto) 0.1 Sodium Potassium Chloride Carbon Dioxide Anion Gap BUN Creatinine Est GFR ( Amer) Est GFR (Non-Af Amer) Random Glucose Fructosamine Calcium Phosphorus Magnesium Total Bilirubin AST ALT Alkaline Phosphatase Troponin I < 0.0120 NT-Pro-B Natriuret Pep 56.1 Total Protein Albumin Globulin Albumin/Globulin Ratio CH[place] Screen CHINA Titer CHINA Titer 2 CHINA Pattern CHINA Pattern 2 RPR 02/04/18 07:59 WBC RBC Hgb Hct MCV MCH MCHC RDW Plt Count MPV Neut % (Auto) Lymph % (Auto) Rankin % (Auto) Eos % (Auto) Baso % (Auto) Neut # (Auto) Lymph # (Auto) Rankin # (Auto) Eos # (Auto) Baso # (Auto) Sodium 141 Potassium 4.1 Chloride 102 Carbon Dioxide 32 H Anion Gap 11 BUN 18 H Creatinine 0.8 Est GFR ( Amer) > 60 Est GFR (Non-Af Amer) > 60 Random Glucose 115 H Fructosamine Calcium 9.8 Phosphorus 4.3 Magnesium 1.9 Total Bilirubin 0.5 AST 28 ALT 24 Alkaline Phosphatase 81 Troponin I NT-Pro-B Natriuret Pep Total Protein 7.6 Albumin 4.2 Globulin 3.4 Albumin/Globulin Ratio 1.2 CH[place] Screen CHINA Titer CHINA Titer 2 CHINA Pattern CHINA Pattern 2 RPR Attending/Attestation - Attestation I have personally seen and examined this patient.: Yes I have fully participated in the care of the patient.: Yes I have reviewed all pertinent clinical information: Yes Notes (Text): 02/04/18 16:56 echo reviewed - mild lv systolic dysfunction ct pe stress test wednesday
--- NOTE | 2018-02-03 21:02 | CARD ---
APPROVED REPORT Date of service: 02/03/2018 <Conclusion> Normal sinus rhythm Normal ECG
[2018-02-03] MEDS: Enoxaparin 40 mg Syringe SC SCH (21:21)
[2018-02-04 02:29] LABS: FRUCTOSAMINE 256 umol/L (190-270)
[2018-02-04 08:04] LABS: BASO # 0.1 K/uL (0.0-0.2); BASO % 0.9 % (0.0-2.0); EOS # 0.3 K/uL (0.0-0.7); EOS % 5.2 % (0.0-4.0); HEMOGLOBIN 13.3 g/dL (12.0-16.0); LYMPH # 1.5 K/uL (1.0-4.3); LYMPH % 27.3 % (20.0-40.0); MEAN CORPUSCULAR HEMOGLOBIN 32.2 pg (27.0-31.0); MEAN CORPUSCULAR HGB CONC 34.7 g/dL (33.0-37.0); MEAN PLATELET VOLUME 9.3 fl (7.2-11.7); MONO # 0.5 K/uL (0.0-0.8); MONO % 9.4 % (0.0-10.0); NEUT # 3.1 K/uL (1.8-7.0); NEUT % 57.2 % (50.0-75.0); NRBC % 0.4 % (0.0-0.0); RBC 4.13 Mil/uL (3.80-5.20); RED CELL DISTRIBUTION WIDTH 13.3 % (11.5-14.5); WHITE BLOOD COUNT 5.4 K/uL (4.8-10.8)
[2018-02-04 08:13] LABS: ALB/GLOB RATIO 1.2 (1.0-2.1); ALBUMIN 4.2 g/dL (3.5-5.0); ALT/SGPT 24 U/L (9-52); AST/SGOT 28 U/L (14-36); BLOOD UREA NITROGEN 18 mg/dl (7-17); CALCIUM 9.8 mg/dL (8.4-10.2); GFR NON-AFRICAN AMERICAN > 60
[2018-02-04] MEDS: Fluticasone-Salmeterol 250-50mcg Diskus IH SCH ×2 (09:29→17:07)
[2018-02-04] MEDS: Enoxaparin 40 mg Syringe SC SCH (09:31)
--- NOTE | 2018-02-04 13:24 | CP.PCM.PN ---
Subjective - Date & Time of Evaluation Date of Evaluation: 02/04/18 Time of Evaluation: 13:27 - Subjective Subjective: Further review of telemetry does not reveled any susan. Same tachyarrhythmia, elevated D-DIMER. Abnormal carotid Doppler. Still semiautomatic. W/U pending for PE and severe stenosis. Will follow. Cardio consult appreciated Objective - Vital Signs/Intake and Output Vital Signs (last 24 hours): Temp Pulse Resp BP Pulse Ox 97.8 F 61 20 123/77 99 02/04/18 12:07 02/04/18 12:07 02/04/18 12:07 02/04/18 12:07 02/04/18 12:07 - Medications Medications: Current Medications Acetaminophen (Tylenol 325mg Tab) 650 mg PO Q4 PRN PRN Reason: Headache Last Admin: 02/03/18 20:52 Dose: 650 mg Amlodipine Besylate (Norvasc) 5 mg PO DAILY [facility] Last Admin: 02/04/18 09:30 Dose: 5 mg Aspirin (Ecotrin) 81 mg PO DAILY [facility] Last Admin: 02/04/18 09:32 Dose: 81 mg Enoxaparin Sodium (Lovenox) 40 mg SC DAILY [facility] PRN Reason: Protocol Last Admin: 02/04/18 09:31 Dose: 40 mg Ferrous Gluconate (Fergon) 324 mg PO BID [facility] Last Admin: 02/04/18 09:31 Dose: 324 mg Folic Acid (Folic Acid) 1 mg PO DAILY [facility] Last Admin: 02/04/18 09:32 Dose: 1 mg Hydrochlorothiazide (Microzide) 12.5 mg PO DAILY [facility] Last Admin: 02/04/18 09:32 Dose: 12.5 mg Hydroxychloroquine Sulfate (Plaquenil) 200 mg PO BID [facility] PRN Reason: Protocol Last Admin: 02/04/18 09:32 Dose: 200 mg Sodium Chloride (Sodium Chloride 0.45%) 1,000 mls @ 85 mls/hr IV .[id number] [facility] Stop: 02/05/18 11:59 Levetiracetam (Keppra) 1,000 mg PO BID [facility] Last Admin: 02/04/18 09:33 Dose: 1,000 mg Levothyroxine Sodium (Synthroid) 125 mcg PO DAILY@0630 [facility] Pantoprazole Sodium (Protonix Inj) 40 mg IVP DAILY [facility] Last Admin: 02/04/18 09:34 Dose: 40 mg Ramipril (Altace) 5 mg PO DAILY [facility] Last Admin: 02/04/18 09:31 Dose: 5 mg Roflumilast (Daliresp) 500 mcg PO DAILY [facility] Last Admin: 02/04/18 09:31 Dose: 500 mcg Fluticasone/Salmeterol (Advair Diskus 250/50) 1 puff IH BID [facility] Last Admin: 02/04/18 09:29 Dose: 1 puff Thiamine HCl (Vitamin B1 Tab) 100 mg PO DAILY [facility] - Labs Labs: 02/04/18 07:59 02/04/18 07:59 PT 11.2 Seconds (9.8-13.1) 02/03/18 09:24 INR 1.0 02/03/18 09:24 APTT 32.8 Seconds (25.6-37.1) 02/03/18 09:24 - Constitutional Appears: Chronically Ill - Head Exam Head Exam: ATRAUMATIC, NORMAL INSPECTION, NORMOCEPHALIC - Eye Exam Eye Exam: Normal appearance - ENT Exam ENT Exam: Mucous Membranes Moist - Neck Exam Neck Exam: Full ROM - Respiratory Exam Respiratory Exam: Decreased Breath Sounds - Cardiovascular Exam Cardiovascular Exam: REGULAR RHYTHM, +S1, +S2 - GI/Abdominal Exam GI & Abdominal Exam: Soft, Normal Bowel Sounds - Extremities Exam Extremities Exam: Normal Inspection - Neurological Exam Neurological Exam: Abnormal Gait, Alert, Awake, CN II-XII Intact, Oriented x3 - Psychiatric Exam Psychiatric exam: Normal Affect - Skin Skin Exam: Normal Color Assessment and Plan (1) Bradycardia Status: Ruled-out (2) Syncope Status: Acute (3) Chest pain Status: Acute (4) Costochondral chest pain Status: Acute (5) Dyspnea Status: Acute (6) Seizure Status: Acute (7) Osteoarthritis Status: Chronic (8) Pulmonary embolism Status: Suspected (9) Carotid stenosis Status: Suspected - Assessment and Plan (Free Text) Plan: Continue present rx will follow radiology w/u. Patient can benefit from snf PT.
--- NOTE | 2018-02-04 17:01 | CP.PCM.PN ---
Subjective - Date & Time of Evaluation Date of Evaluation: 02/04/18 Time of Evaluation: 16:59 - Subjective Subjective: c/o having intermittent reinoso echo mild LV systolic dysfunction Objective - Vital Signs/Intake and Output Vital Signs (last 24 hours): Temp Pulse Resp BP Pulse Ox 97.5 F L 76 20 106/66 98 02/04/18 15:47 02/04/18 15:47 02/04/18 15:47 02/04/18 15:47 02/04/18 15:47 - Medications Medications: Current Medications Acetaminophen (Tylenol 325mg Tab) 650 mg PO Q4 PRN PRN Reason: Headache Last Admin: 02/03/18 20:52 Dose: 650 mg Amlodipine Besylate (Norvasc) 5 mg PO DAILY [facility] Last Admin: 02/04/18 09:30 Dose: 5 mg Aspirin (Ecotrin) 81 mg PO DAILY [facility] Last Admin: 02/04/18 09:32 Dose: 81 mg Enoxaparin Sodium (Lovenox) 40 mg SC DAILY [facility] PRN Reason: Protocol Last Admin: 02/04/18 09:31 Dose: 40 mg Ferrous Gluconate (Fergon) 324 mg PO BID [facility] Last Admin: 02/04/18 09:31 Dose: 324 mg Folic Acid (Folic Acid) 1 mg PO DAILY [facility] Last Admin: 02/04/18 09:32 Dose: 1 mg Hydrochlorothiazide (Microzide) 12.5 mg PO DAILY [facility] Last Admin: 02/04/18 09:32 Dose: 12.5 mg Hydroxychloroquine Sulfate (Plaquenil) 200 mg PO BID [facility] PRN Reason: Protocol Last Admin: 02/04/18 09:32 Dose: 200 mg Sodium Chloride (Sodium Chloride 0.45%) 1,000 mls @ 85 mls/hr IV .[id number] [facility] Stop: 02/05/18 11:59 Levetiracetam (Keppra) 1,000 mg PO BID [facility] Last Admin: 02/04/18 09:33 Dose: 1,000 mg Levothyroxine Sodium (Synthroid) 125 mcg PO DAILY@0630 [facility] Pantoprazole Sodium (Protonix Inj) 40 mg IVP DAILY [facility] Last Admin: 02/04/18 09:34 Dose: 40 mg Ramipril (Altace) 5 mg PO DAILY [facility] Last Admin: 02/04/18 09:31 Dose: 5 mg Roflumilast (Daliresp) 500 mcg PO DAILY [facility] Last Admin: 02/04/18 09:31 Dose: 500 mcg Fluticasone/Salmeterol (Advair Diskus 250/50) 1 puff IH BID [facility] Last Admin: 02/04/18 09:29 Dose: 1 puff Thiamine HCl (Vitamin B1 Tab) 100 mg PO DAILY [facility] - Labs Labs: 02/04/18 07:59 02/04/18 07:59 PT 11.2 Seconds (9.8-13.1) 02/03/18 09:24 INR 1.0 02/03/18 09:24 APTT 32.8 Seconds (25.6-37.1) 02/03/18 09:24 - Constitutional Appears: Well - Head Exam Head Exam: ATRAUMATIC, NORMAL INSPECTION, NORMOCEPHALIC - Eye Exam Eye Exam: EOMI, Normal appearance, PERRL Pupil Exam: NORMAL ACCOMODATION, PERRL - ENT Exam ENT Exam: Mucous Membranes Moist, Normal Exam - Neck Exam Neck Exam: Full ROM, Normal Inspection. absent: Lymphadenopathy - Respiratory Exam Respiratory Exam: Clear to Ausculation Bilateral, NORMAL BREATHING PATTERN - Cardiovascular Exam Cardiovascular Exam: REGULAR RHYTHM, +S1, +S2. absent: Murmur - GI/Abdominal Exam GI & Abdominal Exam: Soft, Normal Bowel Sounds. absent: Tenderness - Extremities Exam Extremities Exam: Full ROM, Normal Capillary Refill, Normal Inspection. absent : Joint Swelling, Pedal Edema - Back Exam Back Exam: NORMAL INSPECTION - Neurological Exam Neurological Exam: Alert, Awake, CN II-XII Intact, Normal Gait, Oriented x3 - Psychiatric Exam Psychiatric exam: Normal Affect, Normal Mood - Skin Skin Exam: Dry, Intact, Normal Color, Warm Assessment and Plan (1) REINOSO (dyspnea on exertion) Assessment & Plan: stress test wednesday Status: Acute (2) Syncope Assessment & Plan: etiology unclear Status: Acute (3) Carotid stenosis Status: Suspected (4) Chest pain Status: Acute (5) Costochondral chest pain Status: Acute (6) COPD (chronic obstructive pulmonary disease) Status: Chronic
[2018-02-04] MEDS: Sodium Chloride 0.45% 1,000 ML IV SCH (17:10)
[2018-02-04] MEDS ORDERED: Iodixanol 320 MG/ML 100 ML BOTTLE IV ONE (19:31)
[2018-02-04] MEDS ORDERED: Sodium Chloride 0.9% 0 ML IV ONE (19:31)
[2018-02-04] MEDS ORDERED: Iodixanol 320 mg/ml 50 ml Sol IV ONE (19:33)
[2018-02-04] MEDS ORDERED: Enoxaparin 80 mg Syringe SC SCH (21:00)
[2018-02-04] MEDS: Enoxaparin 120 mg Syringe SC SCH (21:39)
[2018-02-05] MEDS: Sodium Chloride 0.45% 1,000 ML IV SCH (04:46)
[2018-02-05] MEDS: Levothyroxine 125 MCG TAB PO SCH (05:31)
--- NOTE | 2018-02-05 07:21 | CARD ---
APPROVED REPORT Date of service: 02/04/2018 EKG Measurement Heart [id number] <Conclusion> Normal sinus rhythm Normal ECG
[2018-02-05 09:03] LABS: ABG ALLEN TEST YES; ARTERIAL BLOOD GAS HCO3 27.8 mmol/L (21-28); ARTERIAL BLOOD GAS HEMOGLOBIN 14.3 g/dL (11.7-17.4); ARTERIAL BLOOD GAS O2 CAPACITY 19.4 mL/dL (16-24); ARTERIAL BLOOD GAS O2 CONTENT 19.2 ML/dL (15-23); ARTERIAL BLOOD GAS O2 SAT 99.1 % (95-98); ARTERIAL BLOOD GAS PCO2 39 mm/Hg (35-45); ARTERIAL BLOOD GAS PH 7.46 (7.35-7.45); ARTERIAL BLOOD GAS PO2 86 mm/Hg (80-100); ARTERIAL BLOOD GAS TCO2 28.9 mmol/L (22-28)
[2018-02-05] MEDS: Fluticasone-Salmeterol 250-50mcg Diskus IH SCH ×2 (09:13→16:27)
[2018-02-05] MEDS: Enoxaparin 120 mg Syringe SC SCH ×2 (09:16→21:18)
--- NOTE | 2018-02-05 10:32 | CP.PCM.PN ---
Subjective - Date & Time of Evaluation Date of Evaluation: 02/05/18 Time of Evaluation: 10:34 - Subjective Subjective: Still patient c/o intermittent CP precordial with irradiation to the lt arm. She still c/o presyncopal episodes. Patient with SLE and possible hyper coagulable status. The V.Q scan pending (pt with hx od f PE), MRA pending. Start on nitro. Will follow consult and radiology test. Continue anticoagulation until PE r/u. Objective - Vital Signs/Intake and Output Vital Signs (last 24 hours): Temp Pulse Resp BP Pulse Ox 97.8 F 75 18 115/74 97 02/05/18 08:23 02/05/18 09:15 02/05/18 08:23 02/05/18 09:15 02/05/18 08:23 Intake and Output: 02/04/18 02/05/18 23:59 11:59 Intake Total 840 Output Total 800 Balance 40 - Medications Medications: Current Medications Acetaminophen (Tylenol 325mg Tab) 650 mg PO Q4 PRN PRN Reason: Headache Last Admin: 02/03/18 20:52 Dose: 650 mg Amlodipine Besylate (Norvasc) 5 mg PO DAILY [facility] Last Admin: 02/05/18 09:15 Dose: 5 mg Aspirin (Ecotrin) 81 mg PO DAILY [facility] Last Admin: 02/05/18 09:15 Dose: 81 mg Enoxaparin Sodium (Lovenox) 110 mg SC Q12 [facility] PRN Reason: Protocol Last Admin: 02/05/18 09:16 Dose: 110 mg Ferrous Gluconate (Fergon) 324 mg PO BID [facility] Last Admin: 02/05/18 09:15 Dose: 324 mg Folic Acid (Folic Acid) 1 mg PO DAILY [facility] Last Admin: 02/05/18 09:14 Dose: 1 mg Hydrochlorothiazide (Microzide) 12.5 mg PO DAILY [facility] Last Admin: 02/05/18 09:15 Dose: 12.5 mg Hydroxychloroquine Sulfate (Plaquenil) 200 mg PO BID [facility] PRN Reason: Protocol Last Admin: 02/05/18 09:14 Dose: 200 mg Sodium Chloride (Sodium Chloride 0.45%) 1,000 mls @ 85 mls/hr IV .[id number] [facility] Stop: 02/05/18 11:59 Last Admin: 02/05/18 04:46 Dose: 85 mls/hr Levetiracetam (Keppra) 1,000 mg PO BID [facility] Last Admin: 02/05/18 09:15 Dose: 1,000 mg Levothyroxine Sodium (Synthroid) 125 mcg PO DAILY@0630 [facility] Last Admin: 02/05/18 05:31 Dose: 125 mcg Lorazepam (Ativan) 0.5 mg PO ONCE PRN PRN Reason: Anxiety Nitroglycerin (Nitro-Dur 0.1 Mg/Hr Patch) 1 patch TD DAILY [facility] Pantoprazole Sodium (Protonix Inj) 40 mg IVP DAILY [facility] Last Admin: 02/05/18 09:16 Dose: 40 mg Ramipril (Altace) 5 mg PO DAILY [facility] Last Admin: 02/05/18 09:14 Dose: 5 mg Roflumilast (Daliresp) 500 mcg PO DAILY [facility] Last Admin: 02/05/18 09:15 Dose: 500 mcg Fluticasone/Salmeterol (Advair Diskus 250/50) 1 puff IH BID [facility] Last Admin: 02/05/18 09:13 Dose: 1 puff Thiamine HCl (Vitamin B1 Tab) 100 mg PO DAILY [facility] Last Admin: 02/05/18 09:15 Dose: 100 mg - Labs Labs: 02/04/18 07:59 02/04/18 07:59 PT 11.2 Seconds (9.8-13.1) 02/03/18 09:24 INR 1.0 02/03/18 09:24 APTT 32.8 Seconds (25.6-37.1) 02/03/18 09:24 - Constitutional Appears: Chronically Ill - Head Exam Head Exam: ATRAUMATIC, NORMAL INSPECTION, NORMOCEPHALIC - Eye Exam Eye Exam: Periorbital swelling Pupil Exam: PERRL - ENT Exam ENT Exam: Mucous Membranes Moist - Neck Exam Neck Exam: Full ROM - Respiratory Exam Respiratory Exam: Decreased Breath Sounds - Cardiovascular Exam Cardiovascular Exam: REGULAR RHYTHM, +S1, +S2 - GI/Abdominal Exam GI & Abdominal Exam: Soft, Normal Bowel Sounds - Extremities Exam Extremities Exam: Pedal Edema - Neurological Exam Neurological Exam: Abnormal Gait, Alert, Awake, CN II-XII Intact, Oriented x3 - Psychiatric Exam Psychiatric exam: Normal Affect - Skin Skin Exam: Pallor Assessment and Plan (1) Bradycardia Status: Ruled-out (2) Syncope Status: Acute (3) Chest pain Status: Acute (4) Costochondral chest pain Status: Acute (5) Dyspnea Status: Acute (6) Seizure Status: Acute (7) Osteoarthritis Status: Chronic (8) Pulmonary embolism Status: Suspected (9) Carotid stenosis Status: Suspected (10) CHF (congestive heart failure) Status: Acute - Assessment and Plan (Free Text) Plan: As above.
[2018-02-05] MEDS: Nitroglycerin 0.1 mg/hr Top Patch TD SCH (12:00)
--- NOTE | 2018-02-05 15:15 | MRI ---
Date of service: 02/05/2018 PROCEDURE: Magnetic Resonance Angiography Brain HISTORY: syncope COMPARISON: None available. TECHNIQUE: 3D time of flight MR angiography of the intracranial arteries was performed. Rotating maximum intensity projection images were generated. FINDINGS: INTERNAL CAROTID ARTERIES: Unremarkable. The skull base, petrous, cavernous and supraclinoid segments are bilaterally widely patient. ANTERIOR CEREBRAL ARTERIES: Unremarkable. A1 and A2 segments are widely patent. Smaller distal branches unremarkable, as visualized. MIDDLE CEREBRAL ARTERIES: Unremarkable. M1 and M2 segments are widely patent. Perisylvian branches grossly symmetric. POSTERIOR CIRCULATION: Basilar Artery: Unremarkable. Distal Vertebral Arteries: Unremarkable. Posterior Cerebral Arteries: Unremarkable. Posterior Inferior Cerebellar Arteries: Unremarkable. ANEURYSM/ VASCULAR MALFORMATIONS: None. OTHER FINDINGS: None. IMPRESSION: Grossly unremarkable MRA of the brain. No appreciable major vessel occlusion identified.
[2018-02-06] MEDS: Levothyroxine 125 MCG TAB PO SCH (06:10)
[2018-02-06] MEDS: Fluticasone-Salmeterol 250-50mcg Diskus IH SCH ×2 (09:35→17:26)
[2018-02-06] MEDS: Enoxaparin 120 mg Syringe SC SCH ×2 (09:37→21:20)
[2018-02-06] MEDS: Nitroglycerin 0.1 mg/hr Top Patch TD SCH (09:37)
--- NOTE | 2018-02-06 12:07 | CP.PCM.PN ---
Subjective - Date & Time of Evaluation Date of Evaluation: 02/06/18 Time of Evaluation: 12:08 - Subjective Subjective: Patient still c/o sob, CP with typical irradiation to the left arm, orthopnea. The radiology test still pending. Patient is allergic to steroid and iodine. It is not possible to perform a ct angio, wait for VQ scan to r/o PE. Patient with Hx of PE, SLE, with tachy arrhythmia with high risk of micro emboli at present on therapeutic dose of heparin, impaired systolic disfunction. Will perform Stress test for cardiac evaluation of the CP. No susan and no new episodes of syncope. Objective - Vital Signs/Intake and Output Vital Signs (last 24 hours): Temp Pulse Resp BP Pulse Ox 97.7 F 85 20 128/66 97 02/06/18 08:22 02/06/18 09:00 02/06/18 08:22 02/06/18 09:35 02/06/18 08:22 - Medications Medications: Current Medications Acetaminophen (Tylenol 325mg Tab) 650 mg PO Q4 PRN PRN Reason: Headache Last Admin: 02/05/18 21:17 Dose: 650 mg Amlodipine Besylate (Norvasc) 5 mg PO DAILY [facility] Last Admin: 02/06/18 09:37 Dose: 5 mg Aspirin (Ecotrin) 81 mg PO DAILY [facility] Last Admin: 02/06/18 09:36 Dose: 81 mg Enoxaparin Sodium (Lovenox) 110 mg SC Q12 [facility] PRN Reason: Protocol Last Admin: 02/06/18 09:37 Dose: 110 mg Ferrous Gluconate (Fergon) 324 mg PO BID [facility] Last Admin: 02/06/18 09:36 Dose: 324 mg Folic Acid (Folic Acid) 1 mg PO DAILY [facility] Last Admin: 02/06/18 09:36 Dose: 1 mg Hydrochlorothiazide (Microzide) 12.5 mg PO DAILY [facility] Last Admin: 02/06/18 09:37 Dose: 12.5 mg Hydroxychloroquine Sulfate (Plaquenil) 200 mg PO BID [facility] PRN Reason: Protocol Last Admin: 02/06/18 09:37 Dose: 200 mg Levetiracetam (Keppra) 1,000 mg PO BID [facility] Last Admin: 02/06/18 09:36 Dose: 1,000 mg Levothyroxine Sodium (Synthroid) 125 mcg PO DAILY@0630 [facility] Last Admin: 02/06/18 06:10 Dose: 125 mcg Lorazepam (Ativan) 0.5 mg PO ONCE PRN PRN Reason: Anxiety Last Admin: 02/05/18 10:50 Dose: 0.5 mg Nitroglycerin (Nitro-Dur 0.1 Mg/Hr Patch) 1 patch TD DAILY [facility] Last Admin: 02/06/18 09:37 Dose: 1 patch Pantoprazole Sodium (Protonix Inj) 40 mg IVP DAILY [facility] Last Admin: 02/06/18 09:38 Dose: 40 mg Ramipril (Altace) 5 mg PO DAILY [facility] Last Admin: 02/06/18 09:35 Dose: 5 mg Roflumilast (Daliresp) 500 mcg PO DAILY [facility] Last Admin: 02/06/18 09:36 Dose: 500 mcg Fluticasone/Salmeterol (Advair Diskus 250/50) 1 puff IH BID [facility] Last Admin: 02/06/18 09:35 Dose: 1 puff Thiamine HCl (Vitamin B1 Tab) 100 mg PO DAILY [facility] Last Admin: 02/06/18 09:38 Dose: 100 mg - Labs Labs: 02/04/18 07:59 02/04/18 07:59 PT 11.2 Seconds (9.8-13.1) 02/03/18 09:24 INR 1.0 02/03/18 09:24 APTT 32.8 Seconds (25.6-37.1) 02/03/18 09:24 - Constitutional Appears: Chronically Ill - Head Exam Head Exam: ATRAUMATIC, NORMAL INSPECTION, NORMOCEPHALIC - Eye Exam Eye Exam: Periorbital swelling Pupil Exam: NORMAL ACCOMODATION - ENT Exam ENT Exam: Normal Exam - Neck Exam Neck Exam: Full ROM - Respiratory Exam Respiratory Exam: Decreased Breath Sounds - Cardiovascular Exam Cardiovascular Exam: REGULAR RHYTHM, +S1, +S2 - GI/Abdominal Exam GI & Abdominal Exam: Soft, Normal Bowel Sounds - Extremities Exam Extremities Exam: Full ROM - Neurological Exam Neurological Exam: Alert, Awake, Oriented x3 - Psychiatric Exam Psychiatric exam: Normal Affect - Skin Skin Exam: Normal Color Assessment and Plan (1) Bradycardia Status: Ruled-out (2) Syncope Status: Acute (3) Chest pain Status: Acute (4) Costochondral chest pain Status: Acute (5) Dyspnea Status: Acute (6) Seizure Status: Acute (7) Osteoarthritis Status: Chronic (8) Pulmonary embolism Status: Suspected (9) Carotid stenosis Status: Ruled-out (10) CHF (congestive heart failure) Status: Chronic - Assessment and Plan (Free Text) Plan: As per orders.
[2018-02-06 13:29] LABS: BASO # 0.1 K/uL (0.0-0.2); BASO % 1.3 % (0.0-2.0); EOS # 0.3 K/uL (0.0-0.7); EOS % 4.9 % (0.0-4.0); HEMOGLOBIN 13.3 g/dL (12.0-16.0); LYMPH # 1.2 K/uL (1.0-4.3); LYMPH % 21.8 % (20.0-40.0); MEAN CELL VOLUME 92.3 fl (81.0-99.0); MEAN CORPUSCULAR HEMOGLOBIN 31.8 pg (27.0-31.0); MEAN CORPUSCULAR HGB CONC 34.5 g/dL (33.0-37.0); MEAN PLATELET VOLUME 8.4 fl (7.2-11.7); MONO # 0.6 K/uL (0.0-0.8); MONO % 10.2 % (0.0-10.0); NEUT # 3.5 K/uL (1.8-7.0); NEUT % 61.8 % (50.0-75.0); NRBC % 0.3 % (0.0-0.0); RBC 4.18 Mil/uL (3.80-5.20); RED CELL DISTRIBUTION WIDTH 12.8 % (11.5-14.5); WHITE BLOOD COUNT 5.7 K/uL (4.8-10.8)
[2018-02-06 14:35] LABS: BLOOD UREA NITROGEN 20 mg/dl (7-17); CALCIUM 9.8 mg/dL (8.4-10.2); GFR NON-AFRICAN AMERICAN 57
--- NOTE | 2018-02-06 21:58 | CP.PCM.PN ---
Subjective - Date & Time of Evaluation Date of Evaluation: 02/06/18 Time of Evaluation: 21:00 - Subjective Subjective: episode of chest pain and syncope Objective - Vital Signs/Intake and Output Vital Signs (last 24 hours): Temp Pulse Resp BP Pulse Ox 97.0 F L 85 18 121/73 97 02/06/18 19:36 02/06/18 19:36 02/06/18 19:36 02/06/18 19:36 02/06/18 19:36 - Medications Medications: Current Medications Acetaminophen (Tylenol 325mg Tab) 650 mg PO Q4 PRN PRN Reason: Headache Last Admin: 02/05/18 21:17 Dose: 650 mg Amlodipine Besylate (Norvasc) 5 mg PO DAILY [facility] Last Admin: 02/06/18 09:37 Dose: 5 mg Aspirin (Ecotrin) 81 mg PO DAILY [facility] Last Admin: 02/06/18 09:36 Dose: 81 mg Enoxaparin Sodium (Lovenox) 110 mg SC Q12 [facility] PRN Reason: Protocol Last Admin: 02/06/18 21:20 Dose: 110 mg Ferrous Gluconate (Fergon) 324 mg PO BID [facility] Last Admin: 02/06/18 17:26 Dose: 324 mg Folic Acid (Folic Acid) 1 mg PO DAILY [facility] Last Admin: 02/06/18 09:36 Dose: 1 mg Hydrochlorothiazide (Microzide) 12.5 mg PO DAILY [facility] Last Admin: 02/06/18 09:37 Dose: 12.5 mg Hydroxychloroquine Sulfate (Plaquenil) 200 mg PO BID [facility] PRN Reason: Protocol Last Admin: 02/06/18 17:27 Dose: 200 mg Levetiracetam (Keppra) 1,000 mg PO BID [facility] Last Admin: 02/06/18 17:26 Dose: 1,000 mg Levothyroxine Sodium (Synthroid) 125 mcg PO DAILY@0630 [facility] Last Admin: 02/06/18 06:10 Dose: 125 mcg Lorazepam (Ativan) 0.5 mg PO ONCE PRN PRN Reason: Anxiety Last Admin: 02/05/18 10:50 Dose: 0.5 mg Nitroglycerin (Nitro-Dur 0.1 Mg/Hr Patch) 1 patch TD DAILY [facility] Last Admin: 02/06/18 09:37 Dose: 1 patch Pantoprazole Sodium (Protonix Inj) 40 mg IVP DAILY [facility] Last Admin: 02/06/18 09:38 Dose: 40 mg Ramipril (Altace) 5 mg PO DAILY [facility] Last Admin: 02/06/18 09:35 Dose: 5 mg Roflumilast (Daliresp) 500 mcg PO DAILY [facility] Last Admin: 02/06/18 09:36 Dose: 500 mcg Fluticasone/Salmeterol (Advair Diskus 250/50) 1 puff IH BID [facility] Last Admin: 02/06/18 17:26 Dose: 1 puff Thiamine HCl (Vitamin B1 Tab) 100 mg PO DAILY [facility] Last Admin: 02/06/18 09:38 Dose: 100 mg - Labs Labs: 02/06/18 12:41 02/06/18 12:41 PT 11.2 Seconds (9.8-13.1) 02/03/18 09:24 INR 1.0 02/03/18 09:24 APTT 32.8 Seconds (25.6-37.1) 02/03/18 09:24 - Constitutional Appears: Well - Head Exam Head Exam: ATRAUMATIC, NORMAL INSPECTION, NORMOCEPHALIC - Eye Exam Eye Exam: EOMI, Normal appearance, PERRL Pupil Exam: NORMAL ACCOMODATION, PERRL - ENT Exam ENT Exam: Mucous Membranes Moist, Normal Exam - Neck Exam Neck Exam: Full ROM, Normal Inspection. absent: Lymphadenopathy - Respiratory Exam Respiratory Exam: Clear to Ausculation Bilateral, NORMAL BREATHING PATTERN - Cardiovascular Exam Cardiovascular Exam: REGULAR RHYTHM, +S1, +S2. absent: Murmur - GI/Abdominal Exam GI & Abdominal Exam: Soft, Normal Bowel Sounds. absent: Tenderness - Extremities Exam Extremities Exam: Full ROM, Normal Capillary Refill, Normal Inspection. absent : Joint Swelling, Pedal Edema - Back Exam Back Exam: NORMAL INSPECTION - Neurological Exam Neurological Exam: Alert, Awake, CN II-XII Intact, Normal Gait, Oriented x3 - Psychiatric Exam Psychiatric exam: Normal Affect, Normal Mood - Skin Skin Exam: Dry, Intact, Normal Color, Warm Assessment and Plan (1) REINOSO (dyspnea on exertion) Assessment & Plan: etiology unclear v/q scan today plan for stress test in am npo p mn Status: Acute (2) Syncope Status: Acute (3) Carotid stenosis Status: Ruled-out (4) Chest pain Status: Acute (5) Costochondral chest pain Status: Acute (6) COPD (chronic obstructive pulmonary disease) Status: Chronic
[2018-02-07] MEDS: Levothyroxine 125 MCG TAB PO SCH (05:49)
--- NOTE | 2018-02-07 06:41 | CARD ---
APPROVED REPORT Date of service: 02/06/2018 EKG Measurement Heart [id number] <Conclusion> Normal sinus rhythm Normal ECG
[2018-02-07] MEDS: Fluticasone-Salmeterol 250-50mcg Diskus IH SCH ×2 (09:56→17:04)
[2018-02-07] MEDS: Enoxaparin 120 mg Syringe SC SCH ×2 (10:03→21:00)
[2018-02-07] MEDS: Nitroglycerin 0.1 mg/hr Top Patch TD SCH (10:12)
[2018-02-07] MEDS ORDERED: Albuterol-Ipratrop 3 mg / 0.5 (3 ml) UD INH STA (11:00)
--- NOTE | 2018-02-07 11:23 | CP.PCM.PN ---
Subjective - Date & Time of Evaluation Date of Evaluation: 02/07/18 Time of Evaluation: 11:23 - Subjective Subjective: Patient had another episode of SOB with syncope and CP. For VQ scan and stress test. Continue present rx. Objective - Vital Signs/Intake and Output Vital Signs (last 24 hours): Temp Pulse Resp BP Pulse Ox 97.9 F 66 18 123/55 L 97 02/07/18 08:42 02/07/18 11:12 02/07/18 08:42 02/07/18 10:13 02/07/18 08:42 - Medications Medications: Current Medications Acetaminophen (Tylenol 325mg Tab) 650 mg PO Q4 PRN PRN Reason: Headache Last Admin: 02/06/18 23:15 Dose: 650 mg Amlodipine Besylate (Norvasc) 5 mg PO DAILY [facility] Last Admin: 02/07/18 10:13 Dose: 5 mg Aspirin (Ecotrin) 81 mg PO DAILY [facility] Last Admin: 02/07/18 10:01 Dose: 81 mg Enoxaparin Sodium (Lovenox) 110 mg SC Q12 [facility] PRN Reason: Protocol Last Admin: 02/07/18 10:03 Dose: 110 mg Ferrous Gluconate (Fergon) 324 mg PO BID [facility] Last Admin: 02/07/18 10:01 Dose: 324 mg Folic Acid (Folic Acid) 1 mg PO DAILY [facility] Last Admin: 02/07/18 10:02 Dose: 1 mg Hydrochlorothiazide (Microzide) 12.5 mg PO DAILY [facility] Last Admin: 02/07/18 10:11 Dose: 12.5 mg Hydroxychloroquine Sulfate (Plaquenil) 200 mg PO BID [facility] PRN Reason: Protocol Last Admin: 02/07/18 10:14 Dose: 200 mg Levetiracetam (Keppra) 1,000 mg PO BID [facility] Last Admin: 02/07/18 10:02 Dose: 1,000 mg Levothyroxine Sodium (Synthroid) 125 mcg PO DAILY@0630 [facility] Last Admin: 02/07/18 05:49 Dose: Not Given Lorazepam (Ativan) 0.5 mg PO ONCE PRN PRN Reason: Anxiety Last Admin: 02/05/18 10:50 Dose: 0.5 mg Nitroglycerin (Nitro-Dur 0.1 Mg/Hr Patch) 1 patch TD DAILY [facility] Last Admin: 02/07/18 10:12 Dose: 1 patch Pantoprazole Sodium (Protonix Inj) 40 mg IVP DAILY [facility] Last Admin: 02/07/18 10:14 Dose: 40 mg Ramipril (Altace) 5 mg PO DAILY [facility] Last Admin: 02/07/18 09:57 Dose: 5 mg Roflumilast (Daliresp) 500 mcg PO DAILY [facility] Last Admin: 02/07/18 09:58 Dose: 500 mcg Fluticasone/Salmeterol (Advair Diskus 250/50) 1 puff IH BID [facility] Last Admin: 02/07/18 09:56 Dose: 1 puff Thiamine HCl (Vitamin B1 Tab) 100 mg PO DAILY [facility] Last Admin: 02/07/18 10:17 Dose: 100 mg - Labs Labs: 02/06/18 12:41 02/06/18 12:41 PT 11.2 Seconds (9.8-13.1) 02/03/18 09:24 INR 1.0 02/03/18 09:24 APTT 32.8 Seconds (25.6-37.1) 02/03/18 09:24 - Constitutional Appears: Chronically Ill - Head Exam Head Exam: ATRAUMATIC, NORMAL INSPECTION, NORMOCEPHALIC - ENT Exam ENT Exam: Mucous Membranes Moist - Neck Exam Neck Exam: Full ROM - Respiratory Exam Respiratory Exam: Decreased Breath Sounds - Cardiovascular Exam Cardiovascular Exam: REGULAR RHYTHM, +S1, +S2 - GI/Abdominal Exam GI & Abdominal Exam: Soft, Normal Bowel Sounds - Extremities Exam Extremities Exam: Pedal Edema - Neurological Exam Neurological Exam: Abnormal Gait, Alert, Awake, CN II-XII Intact - Psychiatric Exam Psychiatric exam: Normal Affect - Skin Skin Exam: Pallor Assessment and Plan (1) Bradycardia Status: Ruled-out (2) Syncope Status: Acute (3) Chest pain Status: Acute (4) Costochondral chest pain Status: Acute (5) Dyspnea Status: Acute (6) Seizure Status: Acute (7) Osteoarthritis Status: Chronic (8) Pulmonary embolism Status: Suspected (9) Carotid stenosis Status: Ruled-out (10) CHF (congestive heart failure) Status: Chronic - Assessment and Plan (Free Text) Plan: As above.
--- NOTE | 2018-02-07 15:02 | RAD ---
Date of service: 02/07/2018 HISTORY: sob COMPARISON: Chest radiographs 02/02/2018. Chest radiograph 05/29/2015. TECHNIQUE: Chest PA and lateral FINDINGS: LUNGS: No active pulmonary disease. Chronic granuloma or other benign nodule medial right lung base seen only in the frontal view at the medial right base. PLEURA: No significant pleural effusion identified. No pneumothorax apparent. CARDIOVASCULAR: Normal. OSSEOUS STRUCTURES: No significant abnormalities. VISUALIZED UPPER ABDOMEN: Normal. OTHER FINDINGS: None. IMPRESSION: No interval acute cardiopulmonary disease appreciated. Chronic sub cm nodule inferomedial right base unchanged dating back at least to prior chest radiograph 05/29/2015.
--- NOTE | 2018-02-07 17:13 | NM ---
Date of service: 02/07/2018 COMPARISON: Chest radiographs 02/07/2018. TECHNIQUE: 39.8 mCi technetium 99-m DTPA aerosol 6.2 mCI technetium 99-m MAA administered intravenously. FINDINGS: VENTILATION COMPONENT: Mildly heterogeneous ventilation identified. PERFUSION COMPONENT: No perfusion mismatch identified. Small matched defect appears segment right lower lobe. IMPRESSION: Lowprobability ventilation perfusion scan for pulmonary embolism.
--- NOTE | 2018-02-07 21:46 | CP.PCM.PN ---
Subjective - Date & Time of Evaluation Date of Evaluation: 02/07/18 Time of Evaluation: 10:00 - Subjective Subjective: due to v/q scan scheduled today , stress test delayed for tomorow Objective - Vital Signs/Intake and Output Vital Signs (last 24 hours): Temp Pulse Resp BP Pulse Ox 98.0 F 71 20 98/58 L 98 02/07/18 20:17 02/07/18 20:17 02/07/18 20:17 02/07/18 20:17 02/07/18 20:17 - Medications Medications: Current Medications Acetaminophen (Tylenol 325mg Tab) 650 mg PO Q4 PRN PRN Reason: Headache Last Admin: 02/06/18 23:15 Dose: 650 mg Amlodipine Besylate (Norvasc) 5 mg PO DAILY [facility] [place] Last Admin: 02/07/18 10:13 Dose: 5 mg Aspirin (Ecotrin) 81 mg PO DAILY [facility] [place] Last Admin: 02/07/18 10:01 Dose: 81 mg Enoxaparin Sodium (Lovenox) 110 mg SC Q12 [facility] PRN Reason: Protocol Last Admin: 02/07/18 10:03 Dose: 110 mg Ferrous Gluconate (Fergon) 324 mg PO BID [facility] [place] Last Admin: 02/07/18 17:04 Dose: 324 mg Folic Acid (Folic Acid) 1 mg PO DAILY [facility] [place] Last Admin: 02/07/18 10:02 Dose: 1 mg Hydrochlorothiazide (Microzide) 12.5 mg PO DAILY [facility] [place] Last Admin: 02/07/18 10:11 Dose: 12.5 mg Hydroxychloroquine Sulfate (Plaquenil) 200 mg PO BID [facility] [place] PRN Reason: Protocol Last Admin: 02/07/18 17:40 Dose: 200 mg Levetiracetam (Keppra) 1,000 mg PO BID [facility] [place] Last Admin: 02/07/18 17:39 Dose: 1,000 mg Levothyroxine Sodium (Synthroid) 125 mcg PO DAILY@0630 [facility] [place] Last Admin: 02/07/18 05:49 Dose: Not Given Lorazepam (Ativan) 0.5 mg PO ONCE PRN PRN Reason: Anxiety Last Admin: 02/05/18 10:50 Dose: 0.5 mg Nitroglycerin (Nitro-Dur 0.1 Mg/Hr Patch) 1 patch TD DAILY [facility] [place] Last Admin: 02/07/18 10:12 Dose: 1 patch Pantoprazole Sodium (Protonix Inj) 40 mg IVP DAILY [facility] [place] Last Admin: 02/07/18 10:14 Dose: 40 mg Ramipril (Altace) 5 mg PO DAILY [facility] [place] Last Admin: 02/07/18 09:57 Dose: 5 mg Roflumilast (Daliresp) 500 mcg PO DAILY [facility] [place] Last Admin: 02/07/18 09:58 Dose: 500 mcg Fluticasone/Salmeterol (Advair Diskus 250/50) 1 puff IH BID [facility] [place] Last Admin: 02/07/18 17:04 Dose: 1 puff Thiamine HCl (Vitamin B1 Tab) 100 mg PO DAILY [facility] [place] Last Admin: 02/07/18 10:17 Dose: 100 mg - Labs Labs: 02/06/18 12:41 02/06/18 12:41 PT 11.2 Seconds (9.8-13.1) 02/03/18 09:24 INR 1.0 02/03/18 09:24 APTT 32.8 Seconds (25.6-37.1) 02/03/18 09:24 - Constitutional Appears: Well - Head Exam Head Exam: ATRAUMATIC, NORMAL INSPECTION, NORMOCEPHALIC - Eye Exam Eye Exam: EOMI, Normal appearance, PERRL Pupil Exam: NORMAL ACCOMODATION, PERRL - ENT Exam ENT Exam: Mucous Membranes Moist, Normal Exam - Neck Exam Neck Exam: Full ROM, Normal Inspection. absent: Lymphadenopathy - Respiratory Exam Respiratory Exam: Clear to Ausculation Bilateral, NORMAL BREATHING PATTERN - Cardiovascular Exam Cardiovascular Exam: REGULAR RHYTHM, +S1, +S2, Murmur - GI/Abdominal Exam GI & Abdominal Exam: Soft, Normal Bowel Sounds. absent: Tenderness - Extremities Exam Extremities Exam: Full ROM, Normal Capillary Refill, Normal Inspection. absent : Joint Swelling, Pedal Edema - Back Exam Back Exam: NORMAL INSPECTION - Neurological Exam Neurological Exam: Alert, Awake, CN II-XII Intact, Normal Gait, Oriented x3 - Psychiatric Exam Psychiatric exam: Normal Affect, Normal Mood - Skin Skin Exam: Dry, Intact, Normal Color, Warm Assessment and Plan (1) REINOSO (dyspnea on exertion) Assessment & Plan: stress test in am npo p mn Status: Acute (2) Syncope Status: Acute (3) Carotid stenosis Status: Ruled-out (4) Chest pain Status: Acute (5) Costochondral chest pain Status: Acute (6) COPD (chronic obstructive pulmonary disease) Status: Chronic
[2018-02-08] MEDS: Levothyroxine 125 MCG TAB PO SCH (06:40)
--- NOTE | 2018-02-08 08:50 | CP.PCM.PN ---
Subjective - Date & Time of Evaluation Date of Evaluation: 02/08/18 Time of Evaluation: 08:46 - Subjective Subjective: c/o intermittent chest pain Objective - Vital Signs/Intake and Output Vital Signs (last 24 hours): Temp Pulse Resp BP Pulse Ox 97.8 F 60 18 126/67 97 02/08/18 04:55 02/08/18 04:55 02/08/18 04:55 02/08/18 04:55 02/08/18 04:55 - Medications Medications: Current Medications Acetaminophen (Tylenol 325mg Tab) 650 mg PO Q4 PRN PRN Reason: Headache Last Admin: 02/08/18 01:53 Dose: 650 mg Amlodipine Besylate (Norvasc) 5 mg PO DAILY [facility] Last Admin: 02/07/18 10:13 Dose: 5 mg Aspirin (Ecotrin) 81 mg PO DAILY [facility] Last Admin: 02/07/18 10:01 Dose: 81 mg Enoxaparin Sodium (Lovenox) 40 mg SC DAILY [facility] PRN Reason: Protocol Ferrous Gluconate (Fergon) 324 mg PO BID [facility] Last Admin: 02/07/18 17:04 Dose: 324 mg Folic Acid (Folic Acid) 1 mg PO DAILY [facility] Last Admin: 02/07/18 10:02 Dose: 1 mg Hydrochlorothiazide (Microzide) 12.5 mg PO DAILY [facility] Last Admin: 02/07/18 10:11 Dose: 12.5 mg Hydroxychloroquine Sulfate (Plaquenil) 200 mg PO BID [facility] PRN Reason: Protocol Last Admin: 02/07/18 17:40 Dose: 200 mg Levetiracetam (Keppra) 1,000 mg PO BID [facility] Last Admin: 02/07/18 17:39 Dose: 1,000 mg Levothyroxine Sodium (Synthroid) 125 mcg PO DAILY@0630 [facility] Last Admin: 02/08/18 06:40 Dose: Not Given Lorazepam (Ativan) 0.5 mg PO ONCE PRN PRN Reason: Anxiety Last Admin: 02/05/18 10:50 Dose: 0.5 mg Nitroglycerin (Nitro-Dur 0.1 Mg/Hr Patch) 1 patch TD DAILY [facility] Last Admin: 02/07/18 10:12 Dose: 1 patch Pantoprazole Sodium (Protonix Inj) 40 mg IVP DAILY [facility] Last Admin: 02/07/18 10:14 Dose: 40 mg Ramipril (Altace) 5 mg PO DAILY [facility] Last Admin: 02/07/18 09:57 Dose: 5 mg Roflumilast (Daliresp) 500 mcg PO DAILY [facility] Last Admin: 02/07/18 09:58 Dose: 500 mcg Fluticasone/Salmeterol (Advair Diskus 250/50) 1 puff IH BID [facility] Last Admin: 02/07/18 17:04 Dose: 1 puff Thiamine HCl (Vitamin B1 Tab) 100 mg PO DAILY [facility] Last Admin: 02/07/18 10:17 Dose: 100 mg - Labs Labs: 02/06/18 12:41 02/06/18 12:41 PT 11.2 Seconds (9.8-13.1) 02/03/18 09:24 INR 1.0 02/03/18 09:24 APTT 32.8 Seconds (25.6-37.1) 02/03/18 09:24 - Constitutional Appears: Well - Head Exam Head Exam: ATRAUMATIC, NORMAL INSPECTION, NORMOCEPHALIC - Eye Exam Eye Exam: EOMI, Normal appearance, PERRL Pupil Exam: NORMAL ACCOMODATION, PERRL - ENT Exam ENT Exam: Mucous Membranes Moist, Normal Exam - Neck Exam Neck Exam: Full ROM, Normal Inspection. absent: Lymphadenopathy - Respiratory Exam Respiratory Exam: Clear to Ausculation Bilateral, NORMAL BREATHING PATTERN - Cardiovascular Exam Cardiovascular Exam: REGULAR RHYTHM, +S1, +S2. absent: Murmur - GI/Abdominal Exam GI & Abdominal Exam: Soft, Normal Bowel Sounds. absent: Tenderness - Extremities Exam Extremities Exam: Full ROM, Normal Capillary Refill, Normal Inspection. absent : Joint Swelling, Pedal Edema - Back Exam Back Exam: NORMAL INSPECTION - Neurological Exam Neurological Exam: Alert, Awake, CN II-XII Intact, Normal Gait, Oriented x3 - Psychiatric Exam Psychiatric exam: Normal Affect, Normal Mood - Skin Skin Exam: Dry, Intact, Normal Color, Warm Assessment and Plan (1) REINOSO (dyspnea on exertion) Assessment & Plan: stress test today Status: Acute (2) Syncope Status: Acute (3) Carotid stenosis Status: Ruled-out (4) Chest pain Status: Acute (5) Costochondral chest pain Status: Acute (6) COPD (chronic obstructive pulmonary disease) Status: Chronic
[2018-02-08] MEDS: Nitroglycerin 0.1 mg/hr Top Patch TD SCH (11:12)
[2018-02-08] MEDS: Fluticasone-Salmeterol 250-50mcg Diskus IH SCH ×2 (11:12→17:43)
[2018-02-08 12:23] LABS: HEMOGLOBIN 12.5 g/dL (12.0-16.0); MEAN CELL VOLUME 91.6 fl (81.0-99.0); MEAN CORPUSCULAR HEMOGLOBIN 31.8 pg (27.0-31.0); MEAN CORPUSCULAR HGB CONC 34.8 g/dL (33.0-37.0); RBC 3.94 Mil/uL (3.80-5.20); WHITE BLOOD COUNT 4.5 K/uL (4.8-10.8)
[2018-02-08 12:28] LABS: INR 1.1; PROTHROMBIN TIME 11.7 Seconds (9.8-13.1)
[2018-02-08 12:30] LABS: PARTIAL THROMBOPLASTIN TIME 37.8 Seconds (25.6-37.1)
[2018-02-08 12:49] LABS: 23 KD (IGG) BAND Nonreactive
--- NOTE | 2018-02-08 13:46 | CP.PCM.PN ---
Subjective - Date & Time of Evaluation Date of Evaluation: 02/08/18 Time of Evaluation: 13:48 - Subjective Subjective: Patient still symptomatic, CP, pre syncope, SOB. The VQ scan low probability. Patient can not receive an isotope at the present time will wait until am. The nature of the CP is probable cardiac in origin. The dx is cryptic at the present time and in consideration that she is symptomatic a close f/u is necessary. Will follow cardiac w/u. Objective - Vital Signs/Intake and Output Vital Signs (last 24 hours): Temp Pulse Resp BP Pulse Ox 97.6 F 71 18 148/73 97 02/08/18 08:56 02/08/18 11:18 02/08/18 08:56 02/08/18 11:18 02/08/18 08:56 - Medications Medications: Current Medications Acetaminophen (Tylenol 325mg Tab) 650 mg PO Q4 PRN PRN Reason: Headache Last Admin: 02/08/18 01:53 Dose: 650 mg Amlodipine Besylate (Norvasc) 5 mg PO DAILY [facility] Last Admin: 02/08/18 11:18 Dose: 5 mg Aspirin (Ecotrin) 81 mg PO DAILY [facility] Last Admin: 02/08/18 11:17 Dose: 81 mg Enoxaparin Sodium (Lovenox) 40 mg SC DAILY [facility] PRN Reason: Protocol Ferrous Gluconate (Fergon) 324 mg PO BID [facility] Last Admin: 02/08/18 11:17 Dose: 324 mg Folic Acid (Folic Acid) 1 mg PO DAILY [facility] Last Admin: 02/08/18 11:17 Dose: 1 mg Hydrochlorothiazide (Microzide) 12.5 mg PO DAILY [facility] Last Admin: 02/08/18 11:18 Dose: 12.5 mg Levetiracetam (Keppra) 1,000 mg PO BID [facility] Last Admin: 02/08/18 11:17 Dose: 1,000 mg Levothyroxine Sodium (Synthroid) 125 mcg PO DAILY@0630 [facility] Last Admin: 02/08/18 06:40 Dose: Not Given Lorazepam (Ativan) 0.5 mg PO ONCE PRN PRN Reason: Anxiety Last Admin: 02/05/18 10:50 Dose: 0.5 mg Nitroglycerin (Nitro-Dur 0.1 Mg/Hr Patch) 1 patch TD DAILY [facility] Last Admin: 02/08/18 11:12 Dose: 1 patch Pantoprazole Sodium (Protonix Inj) 40 mg IVP DAILY [facility] Last Admin: 02/08/18 11:20 Dose: 40 mg Ramipril (Altace) 5 mg PO DAILY [facility] Last Admin: 02/08/18 11:16 Dose: 5 mg Roflumilast (Daliresp) 500 mcg PO DAILY [facility] Last Admin: 02/08/18 11:17 Dose: 500 mcg Fluticasone/Salmeterol (Advair Diskus 250/50) 1 puff IH BID [facility] Last Admin: 02/08/18 11:12 Dose: 1 puff Thiamine HCl (Vitamin B1 Tab) 100 mg PO DAILY [facility] Last Admin: 02/08/18 11:20 Dose: 100 mg - Labs Labs: 02/08/18 12:14 02/06/18 12:41 PT 11.7 Seconds (9.8-13.1) 02/08/18 12:14 INR 1.1 02/08/18 12:14 APTT 37.8 Seconds (25.6-37.1) H 02/08/18 12:14 - Constitutional Appears: Chronically Ill - Head Exam Head Exam: ATRAUMATIC, NORMAL INSPECTION, NORMOCEPHALIC - Eye Exam Eye Exam: Periorbital swelling - ENT Exam ENT Exam: Mucous Membranes Moist - Neck Exam Neck Exam: Full ROM - Respiratory Exam Respiratory Exam: Decreased Breath Sounds - Cardiovascular Exam Cardiovascular Exam: REGULAR RHYTHM, +S1, +S2 - GI/Abdominal Exam GI & Abdominal Exam: Soft, Normal Bowel Sounds - Extremities Exam Extremities Exam: Pedal Edema - Neurological Exam Neurological Exam: Alert, Awake, CN II-XII Intact, Oriented x3 - Psychiatric Exam Psychiatric exam: Normal Affect - Skin Skin Exam: Pallor Assessment and Plan (1) Bradycardia Status: Ruled-out (2) Syncope Status: Acute (3) Chest pain Status: Acute (4) Costochondral chest pain Status: Acute (5) Dyspnea Status: Acute (6) Seizure Status: Acute (7) Osteoarthritis Status: Chronic (8) Pulmonary embolism Status: Suspected (9) Carotid stenosis Status: Ruled-out (10) CHF (congestive heart failure) Status: Chronic - Assessment and Plan (Free Text) Plan: Will follow cardiac w/u
--- NOTE | 2018-02-09 06:16 | CP.PCM.PN ---
Objective - Vital Signs/Intake and Output Vital Signs (last 24 hours): Temp Pulse Resp BP Pulse Ox 98.1 F 78 18 105/65 97 02/09/18 04:38 02/09/18 04:38 02/09/18 04:38 02/09/18 04:38 02/09/18 04:38 Intake and Output: 02/08/18 02/09/18 18:59 06:59 Intake Total 720 Balance 720 - Medications Medications: Current Medications Acetaminophen (Tylenol 325mg Tab) 650 mg PO Q4 PRN PRN Reason: Headache Last Admin: 02/08/18 17:43 Dose: 650 mg Amlodipine Besylate (Norvasc) 5 mg PO DAILY [facility] Last Admin: 02/08/18 11:18 Dose: 5 mg Aspirin (Ecotrin) 81 mg PO DAILY [facility] Last Admin: 02/08/18 11:17 Dose: 81 mg Enoxaparin Sodium (Lovenox) 40 mg SC DAILY [facility] PRN Reason: Protocol Ferrous Gluconate (Fergon) 324 mg PO BID [facility] Last Admin: 02/08/18 17:44 Dose: 324 mg Folic Acid (Folic Acid) 1 mg PO DAILY [facility] Last Admin: 02/08/18 11:17 Dose: 1 mg Hydrochlorothiazide (Microzide) 12.5 mg PO DAILY [facility] Last Admin: 02/08/18 11:18 Dose: 12.5 mg Levetiracetam (Keppra) 1,000 mg PO BID [facility] Last Admin: 02/08/18 17:45 Dose: 1,000 mg Levothyroxine Sodium (Synthroid) 125 mcg PO DAILY@0630 [facility] Last Admin: 02/08/18 06:40 Dose: Not Given Lorazepam (Ativan) 0.5 mg PO ONCE PRN PRN Reason: Anxiety Last Admin: 02/05/18 10:50 Dose: 0.5 mg Nitroglycerin (Nitro-Dur 0.1 Mg/Hr Patch) 1 patch TD DAILY [facility] Last Admin: 02/08/18 11:12 Dose: 1 patch Pantoprazole Sodium (Protonix Inj) 40 mg IVP DAILY [facility] Last Admin: 02/08/18 11:20 Dose: 40 mg Ramipril (Altace) 5 mg PO DAILY [facility] Last Admin: 02/08/18 11:16 Dose: 5 mg Roflumilast (Daliresp) 500 mcg PO DAILY [facility] Last Admin: 02/08/18 11:17 Dose: 500 mcg Fluticasone/Salmeterol (Advair Diskus 250/50) 1 puff IH BID [facility] Last Admin: 02/08/18 17:43 Dose: 1 puff Thiamine HCl (Vitamin B1 Tab) 100 mg PO DAILY [facility] Last Admin: 02/08/18 11:20 Dose: 100 mg - Labs Labs: 02/08/18 12:14 02/06/18 12:41 PT 11.7 Seconds (9.8-13.1) 02/08/18 12:14 INR 1.1 02/08/18 12:14 APTT 37.8 Seconds (25.6-37.1) H 02/08/18 12:14 Assessment and Plan (1) REINOSO (dyspnea on exertion) Status: Acute (2) Syncope Status: Acute (3) Carotid stenosis Status: Ruled-out (4) Chest pain Status: Acute (5) Costochondral chest pain Status: Acute (6) COPD (chronic obstructive pulmonary disease) Status: Chronic
[2018-02-09] MEDS: Levothyroxine 125 MCG TAB PO SCH ×2 (10:42→11:17)
[2018-02-09] MEDS ORDERED: Morphine 1 mg/ml preservative-free Inj(Duramorph) ONE (10:43)
[2018-02-09] MEDS: Fluticasone-Salmeterol 250-50mcg Diskus IH SCH ×3 (10:43→17:33)
[2018-02-09] MEDS: Nitroglycerin 0.1 mg/hr Top Patch TD SCH ×2 (10:45→11:22)
[2018-02-09] MEDS: Enoxaparin 40 mg Syringe SC SCH ×2 (11:21→11:24)
--- NOTE | 2018-02-09 11:27 | PCM.RRT ---
[employer] Nurse Assessment - Situation [employer] Responder Arrival Time: 10:40 Location: Cardio-Stress testing [employer] Reason for Call: Chest Pain [employer] Called By: RN - IV IV Inserted during [employer]?: No IV Fluids Initiated During [employer]?: NS at 100cc/hr - Respiratory Oxygen Delivery Method: Room Air Received Nebulizer Treatments: No Was the Patient Ventilated with Bag/Mask 100% O2?: No Secretions Suctioned?: No Was the Patient Intubated?: No Was the Patient Placed on a Ventilator?: No - Medication Medications Administered During [employer]: Ativan 0.5mg IV push- 10:45am - Diagnostic Test Ordered EKG: No Chest X-Ray: No CT Scan: No Other Diagnostic Test Ordered: HEAD CT non-contrast - Stat Labs Ordered [employer] Stat Labs Ordered: BMP, TROPONIN CPR started during [employer]?: No - Vital Signs Vital Signs: Rapid Response Vital Sign Blood Pressure 155/85 Pulse Rate 85 Respiratory Rate 12 Temperature 97.6 F Oxygen Saturation 95 - Melba Coma Scale Coma Scale Eye Opening: Spontaneous Coma Scale Motor: Obeys Commands Movement Coma Scale Verbal: Oriented Coma Scale Total: 15 - Time [employer] Ended Time [employer] Ended: 10:50 - Vital Signs at end of [employer] Vital Signs at end of [employer]: BP: 150/75 HR: 72 - Recommendations [employer] Level of Care Recommendations: Remain in current setting I.Reason for [employer] - A) Acute Change in Patient: (Select all that apply): Chest Pain Subjective: 10: 41am 62 y/o female with hx of SLE, COPD, morbid obesity, seizure, htn was undergoing stress testing in the cardiac suite when she began to feel chest pressure during the exam. Nurse and Primary Health Organisation Manager gave 2 nitroglycerin and she still had chest pressure. [employer] was then called. V/S: BP: 159/75 HR: 78 Patient reported feeling chest pressure in the center of her chest. She responded to verbal stimuli. Stress test monitor (EKG) demonstrated a few PVC' s. Patient was given Ativan 0.5mg IV push at 10:45 am. She began feeling better 1 minute after receiving the Ativan and stated that her chest pressure decreased down to a 2/10. IV fluids: Normal saline 1L at 100cc/hr. Labs: Troponin and BMP. Dr. Abad was called and informed of the [employer] by the Primary Health Organisation Manager. - Neurological Status (Select all that apply): Alert, Responsive, Oriented, Verbal, Follows Commands - Constitutional Appears: Non-toxic Additional Comments: Patient is anxious. - Respiratory Exam Respiratory Exam: Clear to Ausculation Bilateral. absent: Rales, Rhonchi - Cardiovascular Exam Cardiovascular Exam: REGULAR RHYTHM, +S1, +S2 - Neurological Exam Neurological Exam: Alert, Awake, Oriented x3 Plan - Assessment of Findings&Treatment Plan Anxiety - 63 yo female [employer] was called because of chest pressure during stress testing not relieved with 2 Nitroglycerin. Patient was anxious upon [employer] responder arrival and symptoms were resolved with Ativan 0.5mg IV push. - Patient will be taken back to the floor- Telemetry - Room 402-1. - Continue to monitor -F/U Nuclear testing results.
--- NOTE | 2018-02-09 11:45 | CP.PCM.PN ---
Subjective - Date & Time of Evaluation Date of Evaluation: 02/09/18 Time of Evaluation: 11:47 - Subjective Subjective: Patient underwent to stress test during the test she presented with an episode of severe precordial pain irradiating to the lt arm ,SOB, complex tachyarrhythmia and syncope. The w/u is pending. She wait for the second part of the test. I will follow with the insurance marketing specialist. Patient for possible cardiac cath dx and rx. Unstable to be discharged continue telemetry. Objective - Vital Signs/Intake and Output Vital Signs (last 24 hours): Temp Pulse Resp BP Pulse Ox 97.8 F 76 20 133/74 98 02/09/18 08:11 02/09/18 11:24 02/09/18 08:11 02/09/18 11:24 02/09/18 08:11 Intake and Output: 02/08/18 02/09/18 23:59 11:59 Intake Total 720 Balance 720 - Medications Medications: Current Medications Acetaminophen (Tylenol 325mg Tab) 650 mg PO Q4 PRN PRN Reason: Headache Last Admin: 02/08/18 17:43 Dose: 650 mg Amlodipine Besylate (Norvasc) 5 mg PO DAILY [facility] Last Admin: 02/09/18 11:24 Dose: 5 mg Aspirin (Ecotrin) 81 mg PO DAILY [facility] Last Admin: 02/09/18 11:17 Dose: 81 mg Enoxaparin Sodium (Lovenox) 40 mg SC DAILY [facility] PRN Reason: Protocol Last Admin: 02/09/18 11:24 Dose: 40 mg Ferrous Gluconate (Fergon) 324 mg PO BID [facility] Last Admin: 02/09/18 11:19 Dose: 324 mg Folic Acid (Folic Acid) 1 mg PO DAILY [facility] Last Admin: 02/09/18 11:17 Dose: 1 mg Hydrochlorothiazide (Microzide) 12.5 mg PO DAILY [facility] Last Admin: 02/09/18 11:20 Dose: 12.5 mg Levetiracetam (Keppra) 1,000 mg PO BID [facility] Last Admin: 02/09/18 11:20 Dose: 1,000 mg Levothyroxine Sodium (Synthroid) 125 mcg PO DAILY@0630 [facility] Last Admin: 02/09/18 11:17 Dose: 125 mcg Lorazepam (Ativan) 0.5 mg PO ONCE PRN PRN Reason: Anxiety Last Admin: 02/05/18 10:50 Dose: 0.5 mg Nitroglycerin (Nitro-Dur 0.1 Mg/Hr Patch) 1 patch TD DAILY [facility] Last Admin: 02/09/18 11:22 Dose: 1 patch Pantoprazole Sodium (Protonix Inj) 40 mg IVP DAILY [facility] Last Admin: 02/09/18 11:25 Dose: 40 mg Ramipril (Altace) 5 mg PO DAILY [facility] Last Admin: 02/09/18 11:18 Dose: 5 mg Roflumilast (Daliresp) 500 mcg PO DAILY [facility] Last Admin: 02/09/18 11:19 Dose: 500 mcg Fluticasone/Salmeterol (Advair Diskus 250/50) 1 puff IH BID [facility] Last Admin: 02/09/18 11:16 Dose: 1 puff Thiamine HCl (Vitamin B1 Tab) 100 mg PO DAILY [facility] Last Admin: 02/09/18 11:25 Dose: 100 mg - Labs Labs: 02/08/18 12:14 02/06/18 12:41 PT 11.7 Seconds (9.8-13.1) 02/08/18 12:14 INR 1.1 02/08/18 12:14 APTT 37.8 Seconds (25.6-37.1) H 02/08/18 12:14 - Constitutional Appears: Chronically Ill - Eye Exam Eye Exam: Normal appearance Pupil Exam: PERRL - Neck Exam Neck Exam: Full ROM - Respiratory Exam Respiratory Exam: Decreased Breath Sounds - Cardiovascular Exam Cardiovascular Exam: REGULAR RHYTHM, +S1, +S2 - GI/Abdominal Exam GI & Abdominal Exam: Normal Bowel Sounds - Extremities Exam Extremities Exam: Pedal Edema - Neurological Exam Neurological Exam: Abnormal Gait, Alert, Awake, CN II-XII Intact - Psychiatric Exam Psychiatric exam: Anxious - Skin Skin Exam: Pallor Assessment and Plan (1) Osteoarthritis Status: Chronic (2) Seizure Status: Acute (3) Pulmonary embolism Status: Suspected (4) Dyspnea Status: Acute (5) Chest pain Status: Acute (6) Costochondral chest pain Status: Acute (7) Syncope Status: Acute (8) Bradycardia Status: Ruled-out (9) Carotid stenosis Status: Ruled-out (10) CHF (congestive heart failure) Status: Chronic - Assessment and Plan (Free Text) Plan: As above
[2018-02-09 12:21] LABS: BLOOD UREA NITROGEN 21 mg/dl (7-17); CALCIUM 9.5 mg/dL (8.4-10.2); GFR NON-AFRICAN AMERICAN > 60
[2018-02-10] MEDS: Levothyroxine 125 MCG TAB PO SCH (08:54)
[2018-02-10] MEDS: Fluticasone-Salmeterol 250-50mcg Diskus IH SCH ×2 (08:55→18:01)
[2018-02-10] MEDS: Enoxaparin 40 mg Syringe SC SCH (08:56)
[2018-02-10] MEDS: Nitroglycerin 0.1 mg/hr Top Patch TD SCH (08:59)
--- NOTE | 2018-02-10 09:09 | CP.PCM.PN ---
Subjective - Date & Time of Evaluation Date of Evaluation: 02/10/18 Time of Evaluation: 09:02 - Subjective Subjective: s/p stress test yesterday [employer] DIRECTOR post stress - resting images to be done today Objective - Vital Signs/Intake and Output Vital Signs (last 24 hours): Temp Pulse Resp BP Pulse Ox 97.9 F 80 18 113/68 98 02/10/18 08:09 02/10/18 08:09 02/10/18 08:09 02/10/18 08:09 02/10/18 08:09 - Medications Medications: Current Medications Acetaminophen (Tylenol 325mg Tab) 650 mg PO Q4 PRN PRN Reason: Headache Last Admin: 02/09/18 23:27 Dose: 650 mg Amlodipine Besylate (Norvasc) 5 mg PO DAILY [facility] Last Admin: 02/10/18 08:59 Dose: Not Given Aspirin (Ecotrin) 81 mg PO DAILY [facility] Last Admin: 02/10/18 08:59 Dose: Not Given Enoxaparin Sodium (Lovenox) 40 mg SC DAILY [facility] PRN Reason: Protocol Last Admin: 02/10/18 08:56 Dose: 40 mg Ferrous Gluconate (Fergon) 324 mg PO BID [facility] Last Admin: 02/10/18 08:59 Dose: Not Given Folic Acid (Folic Acid) 1 mg PO DAILY [facility] Last Admin: 02/10/18 08:59 Dose: Not Given Hydrochlorothiazide (Microzide) 12.5 mg PO DAILY [facility] Last Admin: 02/10/18 08:59 Dose: Not Given Levetiracetam (Keppra) 1,000 mg PO BID [facility] Last Admin: 02/10/18 08:59 Dose: Not Given Levothyroxine Sodium (Synthroid) 125 mcg PO DAILY@0630 [facility] Last Admin: 02/10/18 08:54 Dose: Not Given Nitroglycerin (Nitro-Dur 0.1 Mg/Hr Patch) 1 patch TD DAILY [facility] Last Admin: 02/10/18 08:59 Dose: Not Given Pantoprazole Sodium (Protonix Inj) 40 mg IVP DAILY [facility] Last Admin: 02/10/18 08:58 Dose: 40 mg Ramipril (Altace) 5 mg PO DAILY [facility] Last Admin: 02/10/18 08:59 Dose: Not Given Roflumilast (Daliresp) 500 mcg PO DAILY [facility] Last Admin: 02/10/18 08:59 Dose: Not Given Fluticasone/Salmeterol (Advair Diskus 250/50) 1 puff IH BID [facility] Last Admin: 02/10/18 08:55 Dose: 1 puff Thiamine HCl (Vitamin B1 Tab) 100 mg PO DAILY [facility] Last Admin: 02/10/18 08:58 Dose: Not Given - Labs Labs: 02/08/18 12:14 02/09/18 12:01 PT 11.7 Seconds (9.8-13.1) 02/08/18 12:14 INR 1.1 02/08/18 12:14 APTT 37.8 Seconds (25.6-37.1) H 02/08/18 12:14 - Constitutional Appears: Well - Head Exam Head Exam: ATRAUMATIC, NORMAL INSPECTION, NORMOCEPHALIC - Eye Exam Eye Exam: EOMI, Normal appearance, PERRL Pupil Exam: NORMAL ACCOMODATION, PERRL - ENT Exam ENT Exam: Mucous Membranes Moist, Normal Exam - Neck Exam Neck Exam: Full ROM, Normal Inspection. absent: Lymphadenopathy - Respiratory Exam Respiratory Exam: Clear to Ausculation Bilateral, NORMAL BREATHING PATTERN - Cardiovascular Exam Cardiovascular Exam: REGULAR RHYTHM, +S1, +S2. absent: Murmur - GI/Abdominal Exam GI & Abdominal Exam: Soft, Normal Bowel Sounds. absent: Tenderness - Extremities Exam Extremities Exam: Full ROM, Normal Capillary Refill, Normal Inspection. absent : Joint Swelling, Pedal Edema - Back Exam Back Exam: NORMAL INSPECTION - Neurological Exam Neurological Exam: Alert, Awake, CN II-XII Intact, Normal Gait, Oriented x3 - Psychiatric Exam Psychiatric exam: Normal Affect, Normal Mood - Skin Skin Exam: Dry, Intact, Normal Color, Warm Assessment and Plan (1) Chest pain Assessment & Plan: resting images pending today Status: Acute (2) COPD (chronic obstructive pulmonary disease) Status: Chronic (3) Costochondral chest pain Status: Acute (4) Syncope Assessment & Plan: orthostatics Status: Acute (5) Carotid stenosis Status: Ruled-out (6) REINOSO (dyspnea on exertion) Status: Acute
--- NOTE | 2018-02-10 23:48 | CP.PCM.PN ---
Subjective - Date & Time of Evaluation Date of Evaluation: 02/10/18 Time of Evaluation: 12:15 - Subjective Subjective: No new changes CP, SOB. Wait for post test Objective - Vital Signs/Intake and Output Vital Signs (last 24 hours): Temp Pulse Resp BP Pulse Ox 98 F 82 17 133/62 95 02/10/18 20:54 02/10/18 21:00 02/10/18 20:54 02/10/18 20:54 02/10/18 20:54 - Medications Medications: Current Medications Acetaminophen (Tylenol 325mg Tab) 650 mg PO Q4 PRN PRN Reason: Headache Last Admin: 02/09/18 23:27 Dose: 650 mg Amlodipine Besylate (Norvasc) 5 mg PO DAILY [facility] Last Admin: 02/10/18 08:59 Dose: Not Given Aspirin (Ecotrin) 81 mg PO DAILY [facility] Last Admin: 02/10/18 08:59 Dose: Not Given Enoxaparin Sodium (Lovenox) 40 mg SC DAILY [facility] PRN Reason: Protocol Last Admin: 02/10/18 08:56 Dose: 40 mg Ferrous Gluconate (Fergon) 324 mg PO BID [facility] Last Admin: 02/10/18 18:01 Dose: Not Given Folic Acid (Folic Acid) 1 mg PO DAILY [facility] Last Admin: 02/10/18 08:59 Dose: Not Given Hydrochlorothiazide (Microzide) 12.5 mg PO DAILY [facility] Last Admin: 02/10/18 08:59 Dose: Not Given Levetiracetam (Keppra) 1,000 mg PO BID [facility] Last Admin: 02/10/18 18:01 Dose: Not Given Levothyroxine Sodium (Synthroid) 125 mcg PO DAILY@0630 [facility] Last Admin: 02/10/18 08:54 Dose: Not Given Nitroglycerin (Nitro-Dur 0.1 Mg/Hr Patch) 1 patch TD DAILY [facility] Last Admin: 02/10/18 08:59 Dose: Not Given Pantoprazole Sodium (Protonix Inj) 40 mg IVP DAILY [facility] Last Admin: 02/10/18 08:58 Dose: 40 mg Ramipril (Altace) 5 mg PO DAILY [facility] Last Admin: 02/10/18 08:59 Dose: Not Given Roflumilast (Daliresp) 500 mcg PO DAILY [facility] Last Admin: 02/10/18 08:59 Dose: Not Given Fluticasone/Salmeterol (Advair Diskus 250/50) 1 puff IH BID [facility] Last Admin: 02/10/18 18:01 Dose: Not Given Thiamine HCl (Vitamin B1 Tab) 100 mg PO DAILY [facility] Last Admin: 02/10/18 08:58 Dose: Not Given - Labs Labs: 02/08/18 12:14 02/09/18 12:01 PT 11.7 Seconds (9.8-13.1) 02/08/18 12:14 INR 1.1 02/08/18 12:14 APTT 37.8 Seconds (25.6-37.1) H 02/08/18 12:14 - Constitutional Appears: Chronically Ill - Head Exam Head Exam: ATRAUMATIC, NORMAL INSPECTION, NORMOCEPHALIC - Eye Exam Eye Exam: Periorbital swelling Pupil Exam: NORMAL ACCOMODATION - Neck Exam Neck Exam: Full ROM - Respiratory Exam Respiratory Exam: Decreased Breath Sounds - Cardiovascular Exam Cardiovascular Exam: REGULAR RHYTHM, +S1, +S2 - GI/Abdominal Exam GI & Abdominal Exam: Normal Bowel Sounds - Extremities Exam Extremities Exam: Full ROM - Neurological Exam Neurological Exam: Abnormal Gait, Alert, Awake, CN II-XII Intact - Psychiatric Exam Psychiatric exam: Normal Mood Assessment and Plan (1) Osteoarthritis Status: Chronic (2) Seizure Status: Acute (3) Pulmonary embolism Status: Suspected (4) Dyspnea Status: Acute (5) Chest pain Status: Acute (6) Costochondral chest pain Status: Acute (7) Syncope Status: Acute (8) Bradycardia Status: Ruled-out (9) Carotid stenosis Status: Ruled-out (10) CHF (congestive heart failure) Status: Chronic - Assessment and Plan (Free Text) Plan: Will follow stress test for possible cath
[2018-02-11] MEDS: Levothyroxine 125 MCG TAB PO SCH (06:10)
[2018-02-11] MEDS: Enoxaparin 40 mg Syringe SC SCH (08:26)
[2018-02-11] MEDS: Fluticasone-Salmeterol 250-50mcg Diskus IH SCH ×2 (08:26→20:05)
[2018-02-11] MEDS: Nitroglycerin 0.1 mg/hr Top Patch TD SCH (08:27)
[2018-02-11] MEDS ORDERED: Dexamethasone 4 mg/1 ml IM SCH (14:15)
--- NOTE | 2018-02-11 14:17 | CP.PCM.PN ---
Subjective - Date & Time of Evaluation Date of Evaluation: 02/11/18 Time of Evaluation: 14:20 - Subjective Subjective: Now patient c/o severe migraine on the rt side, dizziness, palpitations, visual problems. ESR elected C reac. pro. elevated. The previous w/u was not defective for diagnosis. With this new presentation is necessary to r/u acute vasculitis, temporal arteritis, possible endocarditis. as per orders. Will follow w/u. Objective - Vital Signs/Intake and Output Vital Signs (last 24 hours): Temp Pulse Resp BP Pulse Ox 97.6 F 79 18 104/63 99 02/11/18 12:39 02/11/18 12:39 02/11/18 12:39 02/11/18 12:39 02/11/18 12:39 - Medications Medications: Current Medications Acetaminophen (Tylenol 325mg Tab) 650 mg PO Q4 PRN PRN Reason: Headache Last Admin: 02/11/18 13:03 Dose: 650 mg Amlodipine Besylate (Norvasc) 5 mg PO DAILY [facility] Last Admin: 02/11/18 08:30 Dose: 5 mg Aspirin (Ecotrin) 81 mg PO DAILY [facility] Last Admin: 02/11/18 08:28 Dose: 81 mg Carvedilol (Coreg) 3.125 mg PO Q12 [facility] Dexamethasone (Decadron Inj) 4 mg IM DAILY [facility] Ferrous Gluconate (Fergon) 324 mg PO BID [facility] Last Admin: 02/11/18 08:28 Dose: 324 mg Folic Acid (Folic Acid) 1 mg PO DAILY [facility] Last Admin: 02/11/18 08:27 Dose: 1 mg Hydrochlorothiazide (Microzide) 12.5 mg PO DAILY [facility] Last Admin: 02/11/18 08:29 Dose: 12.5 mg Vancomycin HCl 1 gm/ Sodium (Chloride) 250 mls @ 166.667 mls/hr IVPB DAILY [facility] PRN Reason: Protocol Levetiracetam (Keppra) 1,000 mg PO BID [facility] Last Admin: 02/11/18 08:28 Dose: 1,000 mg Levothyroxine Sodium (Synthroid) 125 mcg PO DAILY@0630 [facility] Last Admin: 02/11/18 06:10 Dose: 125 mcg Nitroglycerin (Nitro-Dur 0.1 Mg/Hr Patch) 1 patch TD DAILY [facility] Last Admin: 02/11/18 08:27 Dose: 1 patch Ramipril (Altace) 5 mg PO DAILY [facility] Last Admin: 02/11/18 08:27 Dose: 5 mg Roflumilast (Daliresp) 500 mcg PO DAILY [facility] Last Admin: 02/11/18 08:28 Dose: 500 mcg Fluticasone/Salmeterol (Advair Diskus 250/50) 1 puff IH BID [facility] Last Admin: 02/11/18 08:26 Dose: 1 puff Thiamine HCl (Vitamin B1 Tab) 100 mg PO DAILY [facility] Last Admin: 02/11/18 08:28 Dose: 100 mg - Labs Labs: 02/08/18 12:14 02/09/18 12:01 PT 11.7 Seconds (9.8-13.1) 02/08/18 12:14 INR 1.1 02/08/18 12:14 APTT 37.8 Seconds (25.6-37.1) H 02/08/18 12:14 - Constitutional Appears: Chronically Ill - Head Exam Head Exam: ATRAUMATIC, NORMAL INSPECTION, NORMOCEPHALIC Additional comments: Tenderness in the rt side of the scalp (new) - Neck Exam Neck Exam: Full ROM - Respiratory Exam Respiratory Exam: Decreased Breath Sounds - Cardiovascular Exam Cardiovascular Exam: REGULAR RHYTHM, +S1, +S2 - GI/Abdominal Exam GI & Abdominal Exam: Soft, Normal Bowel Sounds - Extremities Exam Extremities Exam: Normal Inspection - Neurological Exam Neurological Exam: Abnormal Gait, Alert, Awake, CN II-XII Intact, Oriented x3 - Psychiatric Exam Psychiatric exam: Flat Affect - Skin Skin Exam: Normal Color Assessment and Plan (1) Osteoarthritis Status: Chronic (2) Seizure Status: Acute (3) Pulmonary embolism Status: Suspected (4) Dyspnea Status: Acute (5) Chest pain Status: Acute (6) Costochondral chest pain Status: Acute (7) Syncope Status: Acute (8) Bradycardia Status: Ruled-out (9) Carotid stenosis Status: Ruled-out (10) CHF (congestive heart failure) Status: Chronic (11) Vasculitis Status: Suspected (12) Endocarditis Status: Suspected - Assessment and Plan (Free Text) Plan: As per orders
[2018-02-11 14:25] LABS: HEMOGLOBIN 13.4 g/dL (12.0-16.0); MEAN CELL VOLUME 92.8 fl (81.0-99.0); MEAN CORPUSCULAR HEMOGLOBIN 31.7 pg (27.0-31.0); MEAN CORPUSCULAR HGB CONC 34.1 g/dL (33.0-37.0); RBC 4.22 Mil/uL (3.80-5.20); RED CELL DISTRIBUTION WIDTH 12.7 % (11.5-14.5); WHITE BLOOD COUNT 12.8 K/uL (4.8-10.8)
[2018-02-11 14:38] LABS: BLOOD UREA NITROGEN 27 mg/dl (7-17); CALCIUM 9.7 mg/dL (8.4-10.2); GFR NON-AFRICAN AMERICAN > 60
--- NOTE | 2018-02-11 17:39 | CP.PCM.CON ---
History of Present Illness - History of Present Illness History of Present Illness: General Surgery Consult Re: Temporal artery biopsy HPI: 63F initially presented to the hospital after a syncopal episode with palpatitations, chest pain that radiated to her left arm, SOB and dizziness. Extensive workup was negative. Today had a sharp 10/10 headache that began in her neck and progressed to the top of her head. Tylenol, gave some relief but the headache returned with right sided neck pain and it radiated up the right side of head and across the top of her head again. This is similar to her normal headaches that she has had for the past 20 yrs. She sees a neurologist for it. Pt had a right temporal artery biopsy with negative findings in the past. The headaches she has are associated with an aura, she reports seeing white, occasionally associated with N/V, black floaters, and feeling of passing out. PMH: SLE, COPD, Obstructive sleep apnea, Obesity, Hx seizures, HTN, HLD, Myopia , Osteoarthritis, osteoporosis, Vertigo, Anemia, Anxiety, depression PSH: Hernia repair, B/L knee replacement, R temporal artery bx, R hemithyroidectomy FH: non contributory SH: No tobacco, EtOH, or street drugs All: Iodine, codeine, prednisone Meds: see MAR Review of Systems - Review of Systems All systems: reviewed and no additional remarkable complaints except (as per HPI ) Past Patient History - Infectious Disease Hx of Infectious Diseases: None - Past Medical History & Family History Past Medical History?: Yes - Past Social History Smoking Status: Never Smoked - CARDIAC Hx Hypercholesterolemia: Yes Hx Hypertension: Yes - PULMONARY Hx Chronic Obstructive Pulmonary Disease (COPD): Yes - NEUROLOGICAL Hx Seizures: Yes - HEENT Hx HEENT Problems: No - RENAL Hx Chronic Kidney Disease: Yes Hx Kidney Stones: Yes - ENDOCRINE/METABOLIC Hx Endocrine Disorders: Yes Hx Hypothyroidism: Yes - HEMATOLOGICAL/ONCOLOGICAL Hx Blood Disorders: Yes Hx AIDS: No Hx Anemia: Yes Hx Human Immunodeficiency Virus (HIV): No - INTEGUMENTARY Hx Dermatological Problems: No - MUSCULOSKELETAL/RHEUMATOLOGICAL Hx Arthritis: Yes - GASTROINTESTINAL Hx Gastrointestinal Disorders: Yes Hx Gastritis: Yes - GENITOURINARY/GYNECOLOGICAL Hx Genitourinary Disorders: No - PSYCHIATRIC Hx Psychophysiologic Disorder: Yes Hx Anxiety: Yes Hx Depression: Yes Hx Substance Use: No - SURGICAL HISTORY Hx Surgeries: Yes Hx Herniorrhaphy: Yes Hx Joint Replacement: Yes (Bilateral knee) Hx Thyroidectomy: Yes Other/Comment: . - ANESTHESIA Hx Anesthesia: Yes Hx Anesthesia Reactions: No Hx Malignant Hyperthermia: No Has any member of the family had a problem w/ anesthesia?: No Meds Allergies/Adverse Reactions: Allergies Allergy/AdvReac Type Severity Reaction Status Date / Time codeine Allergy RASH Verified 01/18/18 18:44 Iodine and Iodide Containing Allergy RASH Verified 01/18/18 18:44 Produc prednisone Allergy RASH Verified 01/18/18 18:44 iodine AdvReac RASH Verified 02/02/18 10:00 - Medications Medications: Current Medications Acetaminophen (Tylenol 325mg Tab) 650 mg PO Q4 PRN PRN Reason: Headache Last Admin: 02/11/18 13:03 Dose: 650 mg Amlodipine Besylate (Norvasc) 5 mg PO DAILY [facility] Last Admin: 02/11/18 08:30 Dose: 5 mg Aspirin (Ecotrin) 81 mg PO DAILY [facility] Last Admin: 02/11/18 08:28 Dose: 81 mg Carvedilol (Coreg) 3.125 mg PO Q12 [facility] Last Admin: 02/11/18 15:50 Dose: 3.125 mg Dexamethasone (Decadron Inj) 4 mg IM DAILY [facility] Last Admin: 02/11/18 15:50 Dose: 4 mg Ferrous Gluconate (Fergon) 324 mg PO BID [facility] Last Admin: 02/11/18 15:59 Dose: 324 mg Folic Acid (Folic Acid) 1 mg PO DAILY [facility] Last Admin: 02/11/18 08:27 Dose: 1 mg Hydrochlorothiazide (Microzide) 12.5 mg PO DAILY [facility] Last Admin: 02/11/18 08:29 Dose: 12.5 mg Vancomycin HCl 1 gm/ Sodium (Chloride) 250 mls @ 166.667 mls/hr IVPB DAILY [facility] PRN Reason: Protocol Last Admin: 02/11/18 15:51 Dose: 166.667 mls/hr Levetiracetam (Keppra) 1,000 mg PO BID [facility] Last Admin: 02/11/18 15:59 Dose: 1,000 mg Levothyroxine Sodium (Synthroid) 125 mcg PO DAILY@0630 [facility] Last Admin: 02/11/18 06:10 Dose: 125 mcg Nitroglycerin (Nitro-Dur 0.1 Mg/Hr Patch) 1 patch TD DAILY [facility] Last Admin: 02/11/18 08:27 Dose: 1 patch Ramipril (Altace) 5 mg PO DAILY [facility] Last Admin: 02/11/18 08:27 Dose: 5 mg Roflumilast (Daliresp) 500 mcg PO DAILY [facility] Last Admin: 02/11/18 08:28 Dose: 500 mcg Fluticasone/Salmeterol (Advair Diskus 250/50) 1 puff IH BID [facility] Last Admin: 02/11/18 08:26 Dose: 1 puff Thiamine HCl (Vitamin B1 Tab) 100 mg PO DAILY [facility] Last Admin: 02/11/18 08:28 Dose: 100 mg Physical Exam - Constitutional Appears: Non-toxic, No Acute Distress, Chronically Ill - Head Exam Head Exam: ATRAUMATIC, NORMOCEPHALIC Additional comments: No TMJ pain No scalp or temporal TTP B/L No palpable artery on R - Eye Exam Eye Exam: EOMI. absent: Scleral icterus - ENT Exam ENT Exam: Mucous Membranes Moist Additional comments: trachea midline - Neck Exam Neck exam: Positive for: Tenderness (posterior R neck) - Respiratory Exam Respiratory Exam: NORMAL BREATHING PATTERN. absent: Respiratory Distress - Cardiovascular Exam Cardiovascular Exam: RRR, +S1, +S2 - GI/Abdominal Exam GI & Abdominal Exam: Soft. absent: Distended, Tenderness - Rectal Exam Rectal Exam: Deferred - Extremities Exam Extremities exam: Positive for: normal capillary refill, pedal edema (trace). Negative for: calf tenderness - Back Exam Back exam: absent: CVA tenderness (L), CVA tenderness (R) - Neurological Exam Neurological exam: Alert, Oriented x3 - Skin Skin Exam: Dry, Warm Results - Vital Signs Recent Vital Signs: Last Vital Signs Temp 97.5 F L 02/11/18 16:20 Pulse 52 L 02/11/18 16:20 Resp 18 02/11/18 16:20 BP 107/60 02/11/18 16:20 Pulse Ox 99 02/11/18 16:20 - Labs Result Diagrams: 02/11/18 13:47 02/11/18 13:47 Labs: Laboratory Results - last 24 hr 02/10/18 02/11/18 02/11/18 11:06 13:47 13:47 WBC 12.8 H D RBC 4.22 Hgb 13.4 Hct 39.1 MCV 92.8 MCH 31.7 H MCHC 34.1 RDW 12.7 Plt Count 238 ESR Sodium 140 Potassium 4.2 Chloride 102 Carbon Dioxide 27 Anion Gap 15 BUN 27 H Creatinine 0.9 Est GFR ( Amer) > 60 Est GFR (Non-Af Amer) > 60 Random Glucose 140 H Calcium 9.7 C-Reactive Protein 15.20 H TSH 3rd Generation 1.85 02/11/18 13:47 WBC RBC Hgb Hct MCV MCH MCHC RDW Plt Count ESR 80 H Sodium Potassium Chloride Carbon Dioxide Anion Gap BUN Creatinine Est GFR ( Amer) Est GFR (Non-Af Amer) Random Glucose Calcium C-Reactive Protein TSH 3rd Generation Assessment & Plan - Assessment and Plan (Free Text) Assessment: 63F with possible temporal arteritis vs migraine headache Plan: Pt had right temporal artery biopsy ~20 yrs ago, another biopsy in the area would have confounding results due to scar tissue. Continue steroid tx. No surgical intervention at this time. Surgery will sign off per Dr. Leroy Fernández PGY4
--- NOTE | 2018-02-11 18:16 | CP.PCM.CON ---
History of Present Illness - History of Present Illness History of Present Illness: General Surgery Consult received for right sided headache. This is a pleasant 63 yo female with a hx of SLE who initially presented to the hospital after a syncopal episode. She also had palpatitations, chest pain that radiated to her left arm, SOB and dizziness. She had an extensive inpt work up this admission which was deemed to be negative. Pt was about to get discharged today, but had a headache. She states she had a 10/10 headache that was described as being sharp on the top of her head. She was given tylenol, with some relief. She states her headache returned but with right sided neck pain and it radiated up the right side of head and across the top of her head again. She currently rates her headache 6/10. She describes this headache as being her normal headaches that she has had for the past 20 yrs. She sees a neurologist for this, Dr. Arzola?, and has an appt on 03/23/18. She has had a hx of a right temporal artery biopsy with negative findings. These headache that she has is associated with an aura, she reports seeing white, and occasionally associated with N/V, and floaters. Which she does not have today. Review of Systems - Constitutional Constitutional: As Per HPI - EENT Eyes: As Per HPI - Cardiovascular Cardiovascular: As Per HPI - Respiratory Respiratory: As Per HPI - Neurological Neurological: As Per HPI Past Patient History - Infectious Disease Hx of Infectious Diseases: None - Past Medical History & Family History Past Medical History?: Yes - Past Social History Smoking Status: Never Smoked - CARDIAC Hx Hypercholesterolemia: Yes Hx Hypertension: Yes - PULMONARY Hx Chronic Obstructive Pulmonary Disease (COPD): Yes - NEUROLOGICAL Hx Seizures: Yes - HEENT Hx HEENT Problems: No - RENAL Hx Chronic Kidney Disease: Yes Hx Kidney Stones: Yes - ENDOCRINE/METABOLIC Hx Endocrine Disorders: Yes Hx Hypothyroidism: Yes - HEMATOLOGICAL/ONCOLOGICAL Hx Blood Disorders: Yes Hx AIDS: No Hx Anemia: Yes Hx Human Immunodeficiency Virus (HIV): No - INTEGUMENTARY Hx Dermatological Problems: No - MUSCULOSKELETAL/RHEUMATOLOGICAL Hx Arthritis: Yes - GASTROINTESTINAL Hx Gastrointestinal Disorders: Yes Hx Gastritis: Yes - GENITOURINARY/GYNECOLOGICAL Hx Genitourinary Disorders: No - PSYCHIATRIC Hx Psychophysiologic Disorder: Yes Hx Anxiety: Yes Hx Depression: Yes Hx Substance Use: No - SURGICAL HISTORY Hx Surgeries: Yes Hx Cholecystectomy: Yes Hx Herniorrhaphy: Yes Hx Joint Replacement: Yes (Bilateral knee) Hx Thyroidectomy: Yes Other/Comment: . - ANESTHESIA Hx Anesthesia: Yes Hx Anesthesia Reactions: No Hx Malignant Hyperthermia: No Has any member of the family had a problem w/ anesthesia?: No Meds Allergies/Adverse Reactions: Allergies Allergy/AdvReac Type Severity Reaction Status Date / Time codeine Allergy RASH Verified 01/18/18 18:44 Iodine and Iodide Containing Allergy RASH Verified 01/18/18 18:44 Produc prednisone Allergy RASH Verified 01/18/18 18:44 iodine AdvReac RASH Verified 02/02/18 10:00 - Medications Medications: Current Medications Acetaminophen (Tylenol 325mg Tab) 650 mg PO Q4 PRN PRN Reason: Headache Last Admin: 02/11/18 13:03 Dose: 650 mg Amlodipine Besylate (Norvasc) 5 mg PO DAILY [facility] Last Admin: 02/11/18 08:30 Dose: 5 mg Aspirin (Ecotrin) 81 mg PO DAILY [facility] Last Admin: 02/11/18 08:28 Dose: 81 mg Carvedilol (Coreg) 3.125 mg PO Q12 [facility] Last Admin: 02/11/18 15:50 Dose: 3.125 mg Dexamethasone (Decadron Inj) 4 mg IM DAILY [facility] Last Admin: 02/11/18 15:50 Dose: 4 mg Ferrous Gluconate (Fergon) 324 mg PO BID [facility] Last Admin: 02/11/18 15:59 Dose: 324 mg Folic Acid (Folic Acid) 1 mg PO DAILY [facility] Last Admin: 02/11/18 08:27 Dose: 1 mg Hydrochlorothiazide (Microzide) 12.5 mg PO DAILY [facility] Last Admin: 02/11/18 08:29 Dose: 12.5 mg Vancomycin HCl 1 gm/ Sodium (Chloride) 250 mls @ 166.667 mls/hr IVPB DAILY [facility] PRN Reason: Protocol Last Admin: 02/11/18 15:51 Dose: 166.667 mls/hr Levetiracetam (Keppra) 1,000 mg PO BID [facility] Last Admin: 02/11/18 15:59 Dose: 1,000 mg Levothyroxine Sodium (Synthroid) 125 mcg PO DAILY@0630 [facility] Last Admin: 02/11/18 06:10 Dose: 125 mcg Nitroglycerin (Nitro-Dur 0.1 Mg/Hr Patch) 1 patch TD DAILY [facility] Last Admin: 02/11/18 08:27 Dose: 1 patch Ramipril (Altace) 5 mg PO DAILY [facility] Last Admin: 02/11/18 08:27 Dose: 5 mg Roflumilast (Daliresp) 500 mcg PO DAILY [facility] Last Admin: 02/11/18 08:28 Dose: 500 mcg Fluticasone/Salmeterol (Advair Diskus 250/50) 1 puff IH BID [facility] Last Admin: 02/11/18 08:26 Dose: 1 puff Thiamine HCl (Vitamin B1 Tab) 100 mg PO DAILY [facility] Last Admin: 02/11/18 08:28 Dose: 100 mg Physical Exam - Constitutional Additional comments: Speaking to roommate in no distress - Head Exam Head Exam: ATRAUMATIC, NORMAL INSPECTION, NORMOCEPHALIC Additional comments: (-) scalp tenderness - Eye Exam Eye Exam: EOMI, Normal appearance, PERRL. absent: Nystagmus, Periorbital swelling - ENT Exam ENT Exam: Mucous Membranes Moist, Normal Exam - Neck Exam Neck exam: Positive for: Normal Inspection, Tenderness Additional comments: Tenderness of right trapezius - Respiratory Exam Respiratory Exam: Clear to Auscultation Bilateral, NORMAL BREATHING PATTERN - Cardiovascular Exam Cardiovascular Exam: REGULAR RHYTHM, RRR, +S1, +S2 - GI/Abdominal Exam GI & Abdominal Exam: Soft. absent: Tenderness - Extremities Exam Extremities exam: Positive for: normal inspection. Negative for: pedal edema - Neurological Exam Neurological exam: Alert, Oriented x3 - Psychiatric Exam Psychiatric exam: Normal Affect, Normal Mood - Skin Skin Exam: Dry, Intact, Normal Color, Warm Results - Vital Signs Recent Vital Signs: Last Vital Signs Temp 97.5 F L 02/11/18 16:20 Pulse 52 L 02/11/18 16:20 Resp 18 02/11/18 16:20 BP 107/60 02/11/18 16:20 Pulse Ox 99 02/11/18 16:20 - Labs Result Diagrams: 02/11/18 13:47 02/11/18 13:47 Labs: Laboratory Results - last 24 hr 02/10/18 02/11/18 02/11/18 11:06 13:47 13:47 WBC 12.8 H D RBC 4.22 Hgb 13.4 Hct 39.1 MCV 92.8 MCH 31.7 H MCHC 34.1 RDW 12.7 Plt Count 238 ESR Sodium 140 Potassium 4.2 Chloride 102 Carbon Dioxide 27 Anion Gap 15 BUN 27 H Creatinine 0.9 Est GFR ( Amer) > 60 Est GFR (Non-Af Amer) > 60 Random Glucose 140 H Calcium 9.7 C-Reactive Protein 15.20 H TSH 3rd Generation 1.85 02/11/18 13:47 WBC RBC Hgb Hct MCV MCH MCHC RDW Plt Count ESR 80 H Sodium Potassium Chloride Carbon Dioxide Anion Gap BUN Creatinine Est GFR ( Amer) Est GFR (Non-Af Amer) Random Glucose Calcium C-Reactive Protein TSH 3rd Generation Assessment & Plan (1) Headache Status: Acute - Assessment and Plan (Free Text) Assessment: Case discussed with Dr. Harper, Pt's headache appears to be her typical migraine today. She also had a right temporal artery biopsy 20 yrs ago, therefore unable to get another superficial biopsy in area. 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 There is no surgical intervention at this time. Surgery will sign off.
--- NOTE | 2018-02-11 19:16 | CP.PCM.CON ---
History of Present Illness - History of Present Illness History of Present Illness: 62 y/o F with pmhx of SLE, seizure, HLD, HTN, COPD, Hypothyroidism, OA s/p b/l TKR who presents with complaints of recurrent episodes of dizziness and syncope. She had an extensive work up this admission which was negative. Today developed severe headache Infectious etiology to be considered including endocarditis- cultured up and started IV antibiotics ANGEL pending Cultures pending Pmhx: SLE, seizure, HLD, HTN, COPD, Hypothyroidism All: Prednisone (diffuse swelling) PSH: b/l TKR w/ septic arthritis (R knee) SH: Denies smoking, social drinker Hosp: [facility]-Syncope/Dizziness (01/18/18), FH: Mother: DM, "heart failure" Father: "heart failure" Review of Systems - Review of Systems All systems: reviewed and no additional remarkable complaints except - Constitutional Constitutional: As Per HPI - EENT Eyes: absent: As Per HPI, Blind Spots, Blurred Vision, Change in Vision, Decreased Night Vision, Diplopia, Discharge, Dry Eye, Exophthalmos, Floaters, Irritation, Itchy Eyes, Loss of Peripheral Vision, Pain, Photophobia, Requires Corrective Lenses, Sees Flashes, Spots in Vision, Tunnel Vision, Other Visual Disturbances, Loss of Vision, Other Ears: absent: As Per HPI, Decreased Hearing, Ear Discharge, Ear Pain, Tinnitus, Abnormal Hearing, Disequilibrium, Dizziness, Other Nose/Mouth/Throat: absent: As Per HPI, Epistaxis, Nasal Congestion, Nasal Discharge, Nasal Obstruction, Nasal Trauma, Nose Pain, Post Nasal Drip, Sinus Pain, Sinus Pressure, Bleeding Gums, Change in Voice, Dental Pain, Dry Mouth, Dysphagia, Halitosis, Hoarsness, Lip Swelling, Mouth Lesions, Mouth Pain, Odynophagia, Sore Throat, Throat Swelling, Tongue Swelling, Facial Pain, Neck Pain, Neck Mass, Other - Cardiovascular Cardiovascular: As Per HPI - Respiratory Respiratory: As Per HPI, Cough, Dyspnea. absent: Hemoptysis - Gastrointestinal Gastrointestinal: absent: As Per HPI, Abdominal Pain, Belching, Bloating, Change in Bowel Habits, Change in Stool Character, Coffee Ground Emesis, Constipation, Cramping, Diarrhea, Dyspepsia, Dysphagia, Early Satiety, Excessive Flatus, Fecal Incontinence, Heartburn, Hematemesis, Hematochezia, Loose Stools, Melena, Nausea, Odynophagia, Temesmus, Vomiting, Other - Genitourinary Genitourinary: absent: As Per HPI, Change in Urinary Stream, Difficulty Urinating, Dysuria, Flank Pain, Hematuria, Pyuria, Nocturia, Urinary Incontinence, Urinary Frequency, Urinary Hesitance, Urinary Urgency, Voiding Freq/Small Amts, Freq UTI, Hx Renal/Bladder Calculi, Hx /Renal Surgery, Bladder Distension, Other - Reproductive: Female Reproductive:Female: absent: As Per HPI, Amenorrhea, Amenorrhea/ Control, Currently Menstual, Cycle <21 Days, Cycle >35 Days, Cycle Variable, Menses 1-7 Days, Menses >/= 8 Days, Menses Variable, Cycle > 4 Weeks Between, No Menses for 6 Months, Heavy Menses, Light Menses, Normal Menses, Spotting Between Cycles , S/P Hysterectomy, Menopausal, Post Menopausal, Premenarche, Abnormal Vaginal Bleeding, Dysmenorrhea, Dyspareunia, Genital Lesions, Genital Pruritis, Pelvic Pain, Prolapse Symptoms, Sexual Dysfunction, Vaginal Discharge, Vaginal Dryness , Vaginal Odor, Vaginal Pruritis, Other - Menstruation Menstruation: absent: As Per HPI, Amenorrhea, Amenorrhea/ Control, Currently Menstual, Cycle <21 Days, Cycle >35 Days, Cycle Variable, Menses 1-7 Days, Menses >/= 8 Days, Menses Variable, Cycle > 4 Weeks Between, No Menses for 6 Months, Heavy Menses, Light Menses, Normal Menses, Spotting Between Cycles , S/P Hysterectomy, Menopausal, Post Menopausal, Premenarche, Abnormal Vaginal Bleeding, Dysmenorrhea, Other - Musculoskeletal Musculoskeletal: As Per HPI - Integumentary Integumentary: absent: As Per HPI, Acne, Alopecia, Bleeding Lesions, Change in Hair, Change in Nails, Change in Pigmentation, Changing Lesions, Dry Skin, Erythema, Furuncle, Hirsutism, Lesions, New Lesions, Non-Healing Lesions, Photosensitivity, Pruritus, Rash, Skin Pain, Skin Ulcer, Sores, Striae, Swelling , Unusual Bruising, Wounds, Jaundice, Other - Neurological Neurological: As Per HPI, Headaches - Psychiatric Psychiatric: absent: As Per HPI, Abnormal Sleep Pattern, Anhedonia, Anxiety, Auditory Hallucinations, Behavioral Changes, Change in Appetite, Change in Libido, Confusion, Depression, Difficulty Concentrating, Hallucinations, Homicidal Ideation, Hopelessness, Irritability, Memory Loss, Mood Swings, Panic Attacks, Paranoia, Suicidal Ideation, Visual Hallucinations, Tactile Hallucinations, Other - Endocrine Endocrine: absent: As Per HPI, Change in Body Appearance, Change in Libido, Cold Intolorance, Deepening of Voice, Excessive Sweating, Fatigue, Flushing, Heat Intolorance, Increase in Ring/Shoe/Hat Size, Palpitations, Polydipsia, Polyphagia, Polyuria, Other - Hematologic/Lymphatic Hematologic: absent: As Per HPI, Easy Bleeding, Easy Bruising, Lymphadenopathy, Other Past Patient History - Infectious Disease Hx of Infectious Diseases: None - Past Medical History & Family History Past Medical History?: Yes - Past Social History Smoking Status: Never Smoked - CARDIAC Hx Hypercholesterolemia: Yes Hx Hypertension: Yes - PULMONARY Hx Chronic Obstructive Pulmonary Disease (COPD): Yes - NEUROLOGICAL Hx Seizures: Yes - HEENT Hx HEENT Problems: No - RENAL Hx Chronic Kidney Disease: Yes Hx Kidney Stones: Yes - ENDOCRINE/METABOLIC Hx Endocrine Disorders: Yes Hx Hypothyroidism: Yes - HEMATOLOGICAL/ONCOLOGICAL Hx Blood Disorders: Yes Hx AIDS: No Hx Anemia: Yes Hx Human Immunodeficiency Virus (HIV): No - INTEGUMENTARY Hx Dermatological Problems: No - MUSCULOSKELETAL/RHEUMATOLOGICAL Hx Arthritis: Yes - GASTROINTESTINAL Hx Gastrointestinal Disorders: Yes Hx Gastritis: Yes - GENITOURINARY/GYNECOLOGICAL Hx Genitourinary Disorders: No - PSYCHIATRIC Hx Psychophysiologic Disorder: Yes Hx Anxiety: Yes Hx Depression: Yes Hx Substance Use: No - SURGICAL HISTORY Hx Surgeries: Yes Hx Herniorrhaphy: Yes Hx Joint Replacement: Yes (Bilateral knee) Hx Thyroidectomy: Yes Other/Comment: . - ANESTHESIA Hx Anesthesia: Yes Hx Anesthesia Reactions: No Hx Malignant Hyperthermia: No Has any member of the family had a problem w/ anesthesia?: No Meds Allergies/Adverse Reactions: Allergies Allergy/AdvReac Type Severity Reaction Status Date / Time codeine Allergy RASH Verified 01/18/18 18:44 Iodine and Iodide Containing Allergy RASH Verified 01/18/18 18:44 Produc prednisone Allergy RASH Verified 01/18/18 18:44 iodine AdvReac RASH Verified 02/02/18 10:00 - Medications Medications: Current Medications Acetaminophen (Tylenol 325mg Tab) 650 mg PO Q4 PRN PRN Reason: Headache Last Admin: 02/11/18 13:03 Dose: 650 mg Amlodipine Besylate (Norvasc) 5 mg PO DAILY [facility] Last Admin: 02/11/18 08:30 Dose: 5 mg Aspirin (Ecotrin) 81 mg PO DAILY [facility] Last Admin: 02/11/18 08:28 Dose: 81 mg Carvedilol (Coreg) 3.125 mg PO Q12 [facility] Last Admin: 02/11/18 15:50 Dose: 3.125 mg Ferrous Gluconate (Fergon) 324 mg PO BID [facility] Last Admin: 02/11/18 15:59 Dose: 324 mg Folic Acid (Folic Acid) 1 mg PO DAILY [facility] Last Admin: 02/11/18 08:27 Dose: 1 mg Hydrochlorothiazide (Microzide) 12.5 mg PO DAILY [facility] Last Admin: 02/11/18 08:29 Dose: 12.5 mg Vancomycin HCl 1 gm/ Sodium (Chloride) 250 mls @ 166.667 mls/hr IVPB DAILY [facility] PRN Reason: Protocol Last Admin: 02/11/18 15:51 Dose: 166.667 mls/hr Levetiracetam (Keppra) 1,000 mg PO BID [facility] Last Admin: 02/11/18 15:59 Dose: 1,000 mg Levothyroxine Sodium (Synthroid) 125 mcg PO DAILY@0630 [facility] Last Admin: 02/11/18 06:10 Dose: 125 mcg Methylprednisolone (Solu-Medrol) 60 mg IVP Q12 [facility] Nitroglycerin (Nitro-Dur 0.1 Mg/Hr Patch) 1 patch TD DAILY [facility] Last Admin: 02/11/18 08:27 Dose: 1 patch Ramipril (Altace) 5 mg PO DAILY [facility] Last Admin: 02/11/18 08:27 Dose: 5 mg Roflumilast (Daliresp) 500 mcg PO DAILY [facility] Last Admin: 02/11/18 08:28 Dose: 500 mcg Fluticasone/Salmeterol (Advair Diskus 250/50) 1 puff IH BID [facility] Last Admin: 02/11/18 08:26 Dose: 1 puff Thiamine HCl (Vitamin B1 Tab) 100 mg PO DAILY [facility] Last Admin: 02/11/18 08:28 Dose: 100 mg Physical Exam - Constitutional Appears: Non-toxic, No Acute Distress, Chronically Ill - Head Exam Head Exam: ATRAUMATIC, NORMOCEPHALIC - Eye Exam Eye Exam: EOMI, PERRL. absent: Scleral icterus - ENT Exam ENT Exam: Mucous Membranes Dry, Normal External Ear Exam - Neck Exam Neck exam: Negative for: Lymphadenopathy - Respiratory Exam Respiratory Exam: Decreased Breath Sounds, Clear to Auscultation Bilateral - Cardiovascular Exam Cardiovascular Exam: REGULAR RHYTHM, +S1, +S2 - GI/Abdominal Exam GI & Abdominal Exam: Diminished Bowel Sounds, Soft. absent: Tenderness - Rectal Exam Rectal Exam: Deferred - Exam Exam: NORMAL INSPECTION - Extremities Exam Extremities exam: Positive for: pedal pulses present. Negative for: calf tenderness, pedal edema, tenderness - Back Exam Back exam: absent: CVA tenderness (L), CVA tenderness (R), paraspinal tenderness - Neurological Exam Neurological exam: Alert, CN II-XII Intact, Oriented x3, Reflexes Normal - Psychiatric Exam Psychiatric exam: Normal Mood - Skin Skin Exam: Dry Results - Vital Signs Recent Vital Signs: Last Vital Signs Temp 97.5 F L 02/11/18 16:20 Pulse 52 L 02/11/18 16:20 Resp 18 02/11/18 16:20 BP 107/60 02/11/18 16:20 Pulse Ox 99 02/11/18 16:20 - Labs Result Diagrams: 02/11/18 13:47 02/11/18 13:47 Labs: Laboratory Results - last 24 hr 02/10/18 02/11/18 02/11/18 11:06 13:47 13:47 WBC 12.8 H D RBC 4.22 Hgb 13.4 Hct 39.1 MCV 92.8 MCH 31.7 H MCHC 34.1 RDW 12.7 Plt Count 238 ESR Sodium 140 Potassium 4.2 Chloride 102 Carbon Dioxide 27 Anion Gap 15 BUN 27 H Creatinine 0.9 Est GFR ( Amer) > 60 Est GFR (Non-Af Amer) > 60 Random Glucose 140 H Calcium 9.7 C-Reactive Protein 15.20 H TSH 3rd Generation 1.85 02/11/18 13:47 WBC RBC Hgb Hct MCV MCH MCHC RDW Plt Count ESR 80 H Sodium Potassium Chloride Carbon Dioxide Anion Gap BUN Creatinine Est GFR ( Amer) Est GFR (Non-Af Amer) Random Glucose Calcium C-Reactive Protein TSH 3rd Generation Assessment & Plan (1) Headache Status: Acute (2) Syncope Status: Acute (3) CHF (congestive heart failure) Status: Chronic (4) Endocarditis Status: Suspected (5) Bradycardia Status: Ruled-out (6) Carotid stenosis Status: Ruled-out - Assessment and Plan (Free Text) Assessment: await cultures consider ANGEL IV Vanco ordered
--- NOTE | 2018-02-11 19:22 | CP.PCM.CON ---
History of Present Illness - History of Present Illness History of Present Illness: Neurology Consultation Note: Mrs. Street is a 63-year-old woman with a past medical history of SLE, who was admitted for syncope and had an extensive work-up including cardiac, with no significant findings. The patient states that she has had 20-30 seizures during this visit and she is managed by Dr. Arzola with Keppra 750 mg BID. This was recently increased to 1000 mg BID. She was ready to be discharged, but then developed a severe headache that is 10/10 bifrontal and occipital and feels like throbbing. She has headaches often. She states more than 2 times a week. Review of Systems - Review of Systems All systems: reviewed and no additional remarkable complaints except Past Patient History - Infectious Disease Hx of Infectious Diseases: None - Past Medical History & Family History Past Medical History?: Yes - Past Social History Smoking Status: Never Smoked - CARDIAC Hx Hypercholesterolemia: Yes Hx Hypertension: Yes - PULMONARY Hx Chronic Obstructive Pulmonary Disease (COPD): Yes - NEUROLOGICAL Hx Seizures: Yes - HEENT Hx HEENT Problems: No - RENAL Hx Chronic Kidney Disease: Yes Hx Kidney Stones: Yes - ENDOCRINE/METABOLIC Hx Endocrine Disorders: Yes Hx Hypothyroidism: Yes - HEMATOLOGICAL/ONCOLOGICAL Hx Blood Disorders: Yes Hx AIDS: No Hx Anemia: Yes Hx Human Immunodeficiency Virus (HIV): No - INTEGUMENTARY Hx Dermatological Problems: No - MUSCULOSKELETAL/RHEUMATOLOGICAL Hx Arthritis: Yes - GASTROINTESTINAL Hx Gastrointestinal Disorders: Yes Hx Gastritis: Yes - GENITOURINARY/GYNECOLOGICAL Hx Genitourinary Disorders: No - PSYCHIATRIC Hx Psychophysiologic Disorder: Yes Hx Anxiety: Yes Hx Depression: Yes Hx Substance Use: No - SURGICAL HISTORY Hx Surgeries: Yes Hx Herniorrhaphy: Yes Hx Joint Replacement: Yes (Bilateral knee) Hx Thyroidectomy: Yes Other/Comment: . - ANESTHESIA Hx Anesthesia: Yes Hx Anesthesia Reactions: No Hx Malignant Hyperthermia: No Has any member of the family had a problem w/ anesthesia?: No Meds Allergies/Adverse Reactions: Allergies Allergy/AdvReac Type Severity Reaction Status Date / Time codeine Allergy RASH Verified 01/18/18 18:44 Iodine and Iodide Containing Allergy RASH Verified 01/18/18 18:44 Produc prednisone Allergy RASH Verified 01/18/18 18:44 iodine AdvReac RASH Verified 02/02/18 10:00 - Medications Medications: Current Medications Acetaminophen (Tylenol 325mg Tab) 650 mg PO Q4 PRN PRN Reason: Headache Last Admin: 02/11/18 13:03 Dose: 650 mg Amlodipine Besylate (Norvasc) 5 mg PO DAILY [facility] Last Admin: 02/11/18 08:30 Dose: 5 mg Aspirin (Ecotrin) 81 mg PO DAILY [facility] Last Admin: 02/11/18 08:28 Dose: 81 mg Carvedilol (Coreg) 3.125 mg PO Q12 [facility] Last Admin: 02/11/18 15:50 Dose: 3.125 mg Ferrous Gluconate (Fergon) 324 mg PO BID [facility] Last Admin: 02/11/18 15:59 Dose: 324 mg Folic Acid (Folic Acid) 1 mg PO DAILY [facility] Last Admin: 02/11/18 08:27 Dose: 1 mg Hydrochlorothiazide (Microzide) 12.5 mg PO DAILY [facility] Last Admin: 02/11/18 08:29 Dose: 12.5 mg Vancomycin HCl 1 gm/ Sodium (Chloride) 250 mls @ 166.667 mls/hr IVPB DAILY [facility] PRN Reason: Protocol Last Admin: 02/11/18 15:51 Dose: 166.667 mls/hr Levetiracetam (Keppra) 1,000 mg PO BID [facility] Last Admin: 02/11/18 15:59 Dose: 1,000 mg Levothyroxine Sodium (Synthroid) 125 mcg PO DAILY@0630 [facility] Last Admin: 02/11/18 06:10 Dose: 125 mcg Methylprednisolone (Solu-Medrol) 60 mg IVP Q12 [facility] Nitroglycerin (Nitro-Dur 0.1 Mg/Hr Patch) 1 patch TD DAILY [facility] Last Admin: 02/11/18 08:27 Dose: 1 patch Ramipril (Altace) 5 mg PO DAILY [facility] Last Admin: 02/11/18 08:27 Dose: 5 mg Roflumilast (Daliresp) 500 mcg PO DAILY [facility] Last Admin: 02/11/18 08:28 Dose: 500 mcg Fluticasone/Salmeterol (Advair Diskus 250/50) 1 puff IH BID [facility] Last Admin: 02/11/18 08:26 Dose: 1 puff Thiamine HCl (Vitamin B1 Tab) 100 mg PO DAILY [facility] Last Admin: 02/11/18 08:28 Dose: 100 mg Physical Exam - Neurological Exam Neurological exam: Alert, CN II-XII Intact, Normal Gait, Oriented x3, Reflexes Normal Results - Vital Signs Recent Vital Signs: Last Vital Signs Temp 97.5 F L 02/11/18 16:20 Pulse 52 L 02/11/18 16:20 Resp 18 02/11/18 16:20 BP 107/60 02/11/18 16:20 Pulse Ox 99 02/11/18 16:20 - Labs Result Diagrams: 02/11/18 13:47 02/11/18 13:47 Labs: Laboratory Results - last 24 hr 02/10/18 02/11/18 02/11/18 11:06 13:47 13:47 WBC 12.8 H D RBC 4.22 Hgb 13.4 Hct 39.1 MCV 92.8 MCH 31.7 H MCHC 34.1 RDW 12.7 Plt Count 238 ESR Sodium 140 Potassium 4.2 Chloride 102 Carbon Dioxide 27 Anion Gap 15 BUN 27 H Creatinine 0.9 Est GFR ( Amer) > 60 Est GFR (Non-Af Amer) > 60 Random Glucose 140 H Calcium 9.7 C-Reactive Protein 15.20 H TSH 3rd Generation 1.85 02/11/18 13:47 WBC RBC Hgb Hct MCV MCH MCHC RDW Plt Count ESR 80 H Sodium Potassium Chloride Carbon Dioxide Anion Gap BUN Creatinine Est GFR ( Amer) Est GFR (Non-Af Amer) Random Glucose Calcium C-Reactive Protein TSH 3rd Generation Assessment & Plan (1) Headache Assessment and Plan: I recommend treating the current headache with 10 mg of Decadron IV once and magnesium sulfate 1 gram IV once. Will start the patient on Topamax 25 mg daily , which is for seizure and migraine prophylaxis. This can be titrated up to therapeutic doses with Dr. Arzola as an outpatient. Status: Acute (2) Seizure Assessment and Plan: Will add Topamax and continue current Keppra dose. Follow up with Dr. Arzola. Thank you. Status: Acute
[2018-02-11] MEDS ORDERED: Dexamethasone 10 MG in Sodium Chloride 0.9% 50 ML IVPB ONE (20:32)
[2018-02-11] MEDS ORDERED: Magnesium Sulfate 1 GM in Dextrose 5% In Water 100 ML IVPB ONE (20:32)
[2018-02-11 21:07] LABS: COMPLEMENT C4 49.3 mg/dL (14.0-44.0)
[2018-02-12] MEDS: Levothyroxine 125 MCG TAB PO SCH (06:40)
[2018-02-12 07:25] LABS: HEMOGLOBIN 12.6 g/dL (12.0-16.0); LYMPH # 0.8 K/uL (1.0-4.3); LYMPH % 10.8 % (20.0-40.0); MEAN CELL VOLUME 91.4 fl (81.0-99.0); MEAN CORPUSCULAR HEMOGLOBIN 31.9 pg (27.0-31.0); MEAN CORPUSCULAR HGB CONC 34.9 g/dL (33.0-37.0); MONO # 0.1 K/uL (0.0-0.8); MONO % 1.1 % (0.0-10.0); NEUT # 6.4 K/uL (1.8-7.0); NEUT % 88.1 % (50.0-75.0); RBC 3.93 Mil/uL (3.80-5.20); RED CELL DISTRIBUTION WIDTH 12.5 % (11.5-14.5); WHITE BLOOD COUNT 7.3 K/uL (4.8-10.8)
[2018-02-12 07:37] LABS: BLOOD UREA NITROGEN 23 mg/dl (7-17); CALCIUM 9.4 mg/dL (8.4-10.2); GFR NON-AFRICAN AMERICAN > 60
[2018-02-12] MEDS: Nitroglycerin 0.1 mg/hr Top Patch TD SCH (08:32)
[2018-02-12] MEDS ORDERED: Dexamethasone 4 MG in Dextrose 5% In Water 50 ML IV SCH (10:30)
[2018-02-12] MEDS: Dexamethasone 4 mg/1 ml IVPB SCH ×2 (14:22→21:11)
--- NOTE | 2018-02-12 20:56 | CP.PCM.PN ---
Subjective - Date & Time of Evaluation Date of Evaluation: 02/12/18 Time of Evaluation: 13:00 - Subjective Subjective: Patient improving, but still c/o same CP. She is not able to tolerate solumedrol , predinisone. She presented with severe allergic reaction to these medication. At present able tolerate dexamethasone IV. She c/o severe migraine unilateral with same visual problems. She has an elevation of C4, ESR, C react. Prot. The serologic and symptomatic presentation could be suggestive of vasculitis, possible temporal arthritis. 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 It is necessary to clarify the diagnosis and to continue to treat the patient with the only steroid therapy that is able to tolerate. The serologic and the ECHO findings are suggestive of possible endocarditis. The wbc from 12K decreased to a normal value after antiobx therapy. The plan is to wait for negative blood c/s for at lest 48 hrs to r/o a bacterial endocarditis. Precede with temporal artery bx and continue steroid therapy as tolerated by the patient. At the present time we can not discontinue the multiple parental therapy in IP setting. Objective - Vital Signs/Intake and Output Vital Signs (last 24 hours): Temp Pulse Resp BP Pulse Ox 97.9 F 77 18 137/65 99 02/12/18 19:47 02/12/18 19:47 02/12/18 19:47 02/12/18 19:47 02/12/18 19:47 - Medications Medications: Current Medications Acetaminophen (Tylenol 325mg Tab) 650 mg PO Q4 PRN PRN Reason: Headache Last Admin: 02/11/18 20:01 Dose: 650 mg Amlodipine Besylate (Norvasc) 5 mg PO DAILY [facility] Last Admin: 02/12/18 08:33 Dose: 5 mg Aspirin (Ecotrin) 81 mg PO DAILY [facility] Last Admin: 02/12/18 08:31 Dose: 81 mg Carvedilol (Coreg) 3.125 mg PO Q12 [facility] Last Admin: 02/12/18 08:31 Dose: 3.125 mg Dexamethasone (Decadron Inj) 4 mg IVPB Q12 [facility] Last Admin: 02/12/18 14:22 Dose: Not Given Famotidine (Pepcid) 20 mg PO BID [facility] Last Admin: 02/12/18 16:13 Dose: 20 mg Ferrous Gluconate (Fergon) 324 mg PO BID [facility] Last Admin: 02/12/18 16:13 Dose: 324 mg Folic Acid (Folic Acid) 1 mg PO DAILY [facility] Last Admin: 02/12/18 08:31 Dose: 1 mg Hydrochlorothiazide (Microzide) 12.5 mg PO DAILY [facility] Last Admin: 02/12/18 08:31 Dose: 12.5 mg Hydroxyzine HCl (Atarax) 50 mg PO DAILY PRN PRN Reason: itchiness Last Admin: 02/12/18 14:21 Dose: 50 mg Vancomycin HCl 1 gm/ Sodium (Chloride) 250 mls @ 125 mls/hr IVPB Q12@0400,1600 [facility] PRN Reason: Protocol Last Admin: 02/12/18 16:00 Dose: 125 mls/hr Levetiracetam (Keppra) 1,000 mg PO BID [facility] Last Admin: 02/12/18 16:13 Dose: 1,000 mg Levothyroxine Sodium (Synthroid) 125 mcg PO DAILY@0630 [facility] Last Admin: 02/12/18 06:40 Dose: 125 mcg Loratadine (Claritin) 10 mg PO DAILY [facility] Last Admin: 02/12/18 08:37 Dose: 10 mg Nitroglycerin (Nitro-Dur 0.1 Mg/Hr Patch) 1 patch TD DAILY [facility] Last Admin: 02/12/18 08:32 Dose: 1 patch Ramipril (Altace) 5 mg PO DAILY [facility] Last Admin: 02/12/18 08:32 Dose: 5 mg Roflumilast (Daliresp) 500 mcg PO DAILY [facility] Last Admin: 02/12/18 08:30 Dose: 500 mcg Thiamine HCl (Vitamin B1 Tab) 100 mg PO DAILY [facility] Last Admin: 02/12/18 08:33 Dose: 100 mg Topiramate (Topamax) 25 mg PO DAILY [facility] Last Admin: 02/12/18 08:33 Dose: 25 mg - Labs Labs: 02/12/18 06:00 02/12/18 06:00 PT 11.7 Seconds (9.8-13.1) 02/08/18 12:14 INR 1.1 02/08/18 12:14 APTT 37.8 Seconds (25.6-37.1) H 02/08/18 12:14 - Constitutional Appears: Chronically Ill - Head Exam Head Exam: ATRAUMATIC - Eye Exam Eye Exam: Normal appearance - ENT Exam ENT Exam: Normal Exam - Neck Exam Neck Exam: Full ROM - Respiratory Exam Respiratory Exam: Decreased Breath Sounds - Cardiovascular Exam Cardiovascular Exam: REGULAR RHYTHM, +S1, +S2 - GI/Abdominal Exam GI & Abdominal Exam: Soft, Normal Bowel Sounds - Extremities Exam Extremities Exam: Joint Swelling - Neurological Exam Neurological Exam: Abnormal Gait, Alert, Awake, CN II-XII Intact - Psychiatric Exam Psychiatric exam: Flat Affect - Skin Skin Exam: Pallor Assessment and Plan (1) Osteoarthritis Status: Chronic (2) Seizure Status: Acute (3) Pulmonary embolism Status: Suspected (4) Dyspnea Status: Acute (5) Chest pain Status: Acute (6) Costochondral chest pain Status: Acute (7) Syncope Status: Acute (8) Bradycardia Status: Ruled-out (9) Carotid stenosis Status: Ruled-out (10) CHF (congestive heart failure) Status: Chronic (11) Vasculitis Status: Suspected (12) Endocarditis Status: Suspected - Assessment and Plan (Free Text) Plan: As above.
[2018-02-13] MEDS: Levothyroxine 125 MCG TAB PO SCH (06:27)
[2018-02-13] MEDS: Nitroglycerin 0.1 mg/hr Top Patch TD SCH (08:42)
[2018-02-13] MEDS: Dexamethasone 4 mg/1 ml IVPB SCH ×3 (10:18→21:23)
--- NOTE | 2018-02-13 14:49 | CP.PCM.PN ---
Subjective - Date & Time of Evaluation Date of Evaluation: 02/13/18 Time of Evaluation: 08:00 - Subjective Subjective: events noted IV rx in progress consider ANGEL if not done yet Dr Nagy to follow Objective - Vital Signs/Intake and Output Vital Signs (last 24 hours): Temp Pulse Resp BP Pulse Ox 97.8 F 78 18 90/51 L 98 02/13/18 12:16 02/13/18 12:16 02/13/18 12:16 02/13/18 12:16 02/13/18 12:16 - Medications Medications: Current Medications Acetaminophen (Tylenol 325mg Tab) 650 mg PO Q4 PRN PRN Reason: Headache Last Admin: 02/11/18 20:01 Dose: 650 mg Amlodipine Besylate (Norvasc) 5 mg PO DAILY [facility] Last Admin: 02/13/18 08:40 Dose: Not Given Aspirin (Ecotrin) 81 mg PO DAILY [facility] Last Admin: 02/13/18 08:40 Dose: 81 mg Carvedilol (Coreg) 3.125 mg PO Q12 [facility] Last Admin: 02/13/18 08:43 Dose: Not Given Dexamethasone (Decadron Inj) 4 mg IVPB Q12 [facility] Last Admin: 02/13/18 10:18 Dose: Not Given Famotidine (Pepcid) 20 mg PO BID [facility] Last Admin: 02/13/18 08:40 Dose: 20 mg Ferrous Gluconate (Fergon) 324 mg PO BID [facility] Last Admin: 02/13/18 08:40 Dose: 324 mg Folic Acid (Folic Acid) 1 mg PO DAILY [facility] Last Admin: 02/13/18 08:42 Dose: 1 mg Hydrochlorothiazide (Microzide) 12.5 mg PO DAILY [facility] Last Admin: 02/13/18 08:43 Dose: Not Given Hydroxyzine HCl (Atarax) 50 mg PO DAILY PRN PRN Reason: itchiness Last Admin: 02/12/18 14:21 Dose: 50 mg Vancomycin HCl 1 gm/ Sodium (Chloride) 250 mls @ 125 mls/hr IVPB Q12@0400,1600 [facility] PRN Reason: Protocol Last Admin: 02/13/18 03:39 Dose: 125 mls/hr Levetiracetam (Keppra) 1,000 mg PO BID [facility] Last Admin: 02/13/18 08:41 Dose: 1,000 mg Levothyroxine Sodium (Synthroid) 125 mcg PO DAILY@0630 [facility] Last Admin: 02/13/18 06:27 Dose: 125 mcg Loratadine (Claritin) 10 mg PO DAILY [facility] Last Admin: 02/13/18 08:41 Dose: 10 mg Nitroglycerin (Nitro-Dur 0.1 Mg/Hr Patch) 1 patch TD DAILY [facility] Last Admin: 02/13/18 08:42 Dose: Not Given Ramipril (Altace) 5 mg PO DAILY [facility] Last Admin: 02/13/18 08:41 Dose: Not Given Roflumilast (Daliresp) 500 mcg PO DAILY [facility] Last Admin: 02/13/18 08:42 Dose: 500 mcg Thiamine HCl (Vitamin B1 Tab) 100 mg PO DAILY [facility] Last Admin: 02/13/18 08:42 Dose: 100 mg Topiramate (Topamax) 25 mg PO DAILY [facility] Last Admin: 02/13/18 08:42 Dose: 25 mg - Labs Labs: 02/12/18 06:00 02/12/18 06:00 PT 11.7 Seconds (9.8-13.1) 02/08/18 12:14 INR 1.1 02/08/18 12:14 APTT 37.8 Seconds (25.6-37.1) H 02/08/18 12:14 - Constitutional Appears: Non-toxic, Chronically Ill - Head Exam Head Exam: NORMOCEPHALIC - Eye Exam Eye Exam: PERRL. absent: Scleral icterus - ENT Exam ENT Exam: Mucous Membranes Dry - Neck Exam Neck Exam: absent: Lymphadenopathy - Respiratory Exam Respiratory Exam: Decreased Breath Sounds, Prolonged Expiratory Phase - Cardiovascular Exam Cardiovascular Exam: REGULAR RHYTHM, +S1, +S2 - GI/Abdominal Exam GI & Abdominal Exam: Distended, Soft - Rectal Exam Rectal Exam: Deferred Assessment and Plan (1) Headache Status: Acute (2) Syncope Status: Acute (3) CHF (congestive heart failure) Status: Chronic (4) Endocarditis Status: Suspected (5) Bradycardia Status: Ruled-out (6) Carotid stenosis Status: Ruled-out - Assessment and Plan (Free Text) Assessment: will check vanco trough one done earlier was aftwer vanco given
--- NOTE | 2018-02-13 19:15 | CP.PCM.PN ---
Subjective - Date & Time of Evaluation Date of Evaluation: 02/13/18 Time of Evaluation: 19:16 - Subjective Subjective: Patient improving since iv antibx and steroid iv. She does not c/o any visual problems. Wait for vasculitis w/u and bx of temporal artery. She tolerated only iv dexamathasone. Will follow. Patient very concerned to loose her vision completely, she is blind of the rt eye. I explained that at present she responded well to present rx. Objective - Vital Signs/Intake and Output Vital Signs (last 24 hours): Temp Pulse Resp BP Pulse Ox 97.8 F 76 18 119/67 97 02/13/18 16:33 02/13/18 16:33 02/13/18 16:33 02/13/18 16:33 02/13/18 16:33 - Medications Medications: Current Medications Acetaminophen (Tylenol 325mg Tab) 650 mg PO Q4 PRN PRN Reason: Headache Last Admin: 02/11/18 20:01 Dose: 650 mg Amlodipine Besylate (Norvasc) 5 mg PO DAILY [facility] Last Admin: 02/13/18 08:40 Dose: Not Given Aspirin (Ecotrin) 81 mg PO DAILY [facility] Last Admin: 02/13/18 08:40 Dose: 81 mg Carvedilol (Coreg) 3.125 mg PO Q12 [facility] Last Admin: 02/13/18 08:43 Dose: Not Given Dexamethasone (Decadron Inj) 4 mg IVPB Q12 [facility] Last Admin: 02/13/18 18:52 Dose: 4 mg Famotidine (Pepcid) 20 mg PO BID [facility] Last Admin: 02/13/18 16:00 Dose: 20 mg Ferrous Gluconate (Fergon) 324 mg PO BID [facility] Last Admin: 02/13/18 15:59 Dose: 324 mg Folic Acid (Folic Acid) 1 mg PO DAILY [facility] Last Admin: 02/13/18 08:42 Dose: 1 mg Hydrochlorothiazide (Microzide) 12.5 mg PO DAILY [facility] Last Admin: 02/13/18 08:43 Dose: Not Given Hydroxyzine HCl (Atarax) 50 mg PO DAILY PRN PRN Reason: itchiness Last Admin: 02/12/18 14:21 Dose: 50 mg Vancomycin HCl 1 gm/ Sodium (Chloride) 250 mls @ 125 mls/hr IVPB Q12@0400,1600 [facility] PRN Reason: Protocol Last Admin: 02/13/18 15:59 Dose: 125 mls/hr Levetiracetam (Keppra) 1,000 mg PO BID [facility] Last Admin: 02/13/18 16:00 Dose: 1,000 mg Levothyroxine Sodium (Synthroid) 125 mcg PO DAILY@0630 [facility] Last Admin: 02/13/18 06:27 Dose: 125 mcg Loratadine (Claritin) 10 mg PO DAILY [facility] Last Admin: 02/13/18 08:41 Dose: 10 mg Nitroglycerin (Nitro-Dur 0.1 Mg/Hr Patch) 1 patch TD DAILY [facility] Last Admin: 02/13/18 08:42 Dose: Not Given Ramipril (Altace) 5 mg PO DAILY [facility] Last Admin: 02/13/18 08:41 Dose: Not Given Roflumilast (Daliresp) 500 mcg PO DAILY [facility] Last Admin: 02/13/18 08:42 Dose: 500 mcg Thiamine HCl (Vitamin B1 Tab) 100 mg PO DAILY [facility] Last Admin: 02/13/18 08:42 Dose: 100 mg Topiramate (Topamax) 25 mg PO DAILY [facility] Last Admin: 02/13/18 08:42 Dose: 25 mg - Labs Labs: 02/12/18 06:00 02/12/18 06:00 PT 11.7 Seconds (9.8-13.1) 02/08/18 12:14 INR 1.1 02/08/18 12:14 APTT 37.8 Seconds (25.6-37.1) H 02/08/18 12:14 - Constitutional Appears: Chronically Ill - Head Exam Head Exam: ATRAUMATIC, NORMAL INSPECTION, NORMOCEPHALIC - Eye Exam Eye Exam: Normal appearance - ENT Exam ENT Exam: Mucous Membranes Moist - Neck Exam Neck Exam: Full ROM, Tenderness - Respiratory Exam Respiratory Exam: Decreased Breath Sounds - Cardiovascular Exam Cardiovascular Exam: REGULAR RHYTHM, +S1, +S2 - GI/Abdominal Exam GI & Abdominal Exam: Soft, Normal Bowel Sounds - Neurological Exam Neurological Exam: Alert, Awake, CN II-XII Intact, Oriented x3 - Psychiatric Exam Psychiatric exam: Anxious - Skin Skin Exam: Pallor Assessment and Plan (1) Osteoarthritis Status: Chronic (2) Seizure Status: Acute (3) Pulmonary embolism Status: Suspected (4) Dyspnea Status: Acute (5) Chest pain Status: Acute (6) Costochondral chest pain Status: Acute (7) Syncope Status: Acute (8) Bradycardia Status: Ruled-out (9) Carotid stenosis Status: Ruled-out (10) CHF (congestive heart failure) Status: Chronic (11) Vasculitis Status: Suspected (12) Endocarditis Status: Suspected - Assessment and Plan (Free Text) Plan: Continue iv steroid.
[2018-02-14] MEDS: Levothyroxine 125 MCG TAB PO SCH (05:34)
[2018-02-14] MEDS: Nitroglycerin 0.1 mg/hr Top Patch TD SCH (09:00)
[2018-02-14] MEDS: Dexamethasone 4 mg/1 ml IVPB SCH ×2 (09:02→21:25)
--- NOTE | 2018-02-14 10:54 | CP.PCM.PN ---
<Zahira Brady - Last Filed: 02/14/18 10:54> Subjective - Date & Time of Evaluation Date of Evaluation: 02/14/18 Time of Evaluation: 10:40 - Subjective Subjective: General Surgery Pt seen and examined this AM with Dr. Richter. She denies having any headaches today, and her last headache was when she was admitted, which this information has changed since I originally saw her on 02/11/18. She also states while she was here with that headache on admission she was seeing spots, which was new to her from her typical headaches, which is information that has also changed since my initial exam. When asked about her history of her temporal artery biopsy 20 yrs ago, she points to the top of her head, and that she had it done when she became blind from her right eye. Labs and vitals reviewed. PE Gen: Pt sitting in chair in NAD Skin: warm and dry Head: (-) scalp tenderness. (+) well healed vertical surgical incision at the hair line superior to right eyebrow. Eyes: (-) conjunctival injection Lungs: (-) stridor, (-) audible wheezing, breathing unlabored. Neuro: Speech clear, moving all extremities. 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 hx of temporal artery biopsy, as scar isn't in common surgical site, however after discussion with Dr. Harper, it is possible the biopsy was done there, but there is no guarantee. Will make NPO after midnight tonight for OR tomorrow. Objective - Vital Signs/Intake and Output Vital Signs (last 24 hours): Temp Pulse Resp BP Pulse Ox 97.7 F 67 18 125/61 99 02/14/18 07:41 02/14/18 09:01 02/14/18 07:41 02/14/18 09:01 02/14/18 07:41 - Medications Medications: Current Medications Acetaminophen (Tylenol 325mg Tab) 650 mg PO Q4 PRN PRN Reason: Headache Last Admin: 02/11/18 20:01 Dose: 650 mg Amlodipine Besylate (Norvasc) 5 mg PO DAILY [facility] Last Admin: 02/14/18 09:01 Dose: 5 mg Aspirin (Ecotrin) 81 mg PO DAILY [facility] Last Admin: 02/14/18 08:58 Dose: 81 mg Carvedilol (Coreg) 3.125 mg PO Q12 [facility] Last Admin: 02/14/18 08:57 Dose: 3.125 mg Dexamethasone (Decadron Inj) 4 mg IVPB Q12 [facility] Last Admin: 02/14/18 09:02 Dose: 4 mg Famotidine (Pepcid) 20 mg PO BID [facility] Last Admin: 02/14/18 09:01 Dose: 20 mg Ferrous Gluconate (Fergon) 324 mg PO BID [facility] Last Admin: 02/14/18 08:58 Dose: 324 mg Folic Acid (Folic Acid) 1 mg PO DAILY [facility] Last Admin: 02/14/18 08:59 Dose: 1 mg Hydrochlorothiazide (Microzide) 12.5 mg PO DAILY [facility] Last Admin: 02/14/18 09:00 Dose: 12.5 mg Hydroxyzine HCl (Atarax) 50 mg PO DAILY PRN PRN Reason: itchiness Last Admin: 02/12/18 14:21 Dose: 50 mg Levetiracetam (Keppra) 1,000 mg PO BID [facility] Last Admin: 02/14/18 08:59 Dose: 1,000 mg Levothyroxine Sodium (Synthroid) 125 mcg PO DAILY@0630 [facility] Last Admin: 02/14/18 05:34 Dose: 125 mcg Loratadine (Claritin) 10 mg PO DAILY [facility] Last Admin: 02/14/18 08:57 Dose: 10 mg Nitroglycerin (Nitro-Dur 0.1 Mg/Hr Patch) 1 patch TD DAILY [facility] Last Admin: 02/14/18 09:00 Dose: 1 patch Ramipril (Altace) 5 mg PO DAILY [facility] Last Admin: 02/14/18 08:56 Dose: 5 mg Roflumilast (Daliresp) 500 mcg PO DAILY [facility] Last Admin: 02/14/18 08:57 Dose: 500 mcg Thiamine HCl (Vitamin B1 Tab) 100 mg PO DAILY [facility] Last Admin: 02/14/18 09:02 Dose: 100 mg Topiramate (Topamax) 25 mg PO DAILY [facility] Last Admin: 02/14/18 09:02 Dose: 25 mg - Labs Labs: 02/12/18 06:00 02/12/18 06:00 PT 11.7 Seconds (9.8-13.1) 02/08/18 12:14 INR 1.1 02/08/18 12:14 APTT 37.8 Seconds (25.6-37.1) H 02/08/18 12:14 Assessment and Plan (1) Headache Status: Acute <Win Ghosh - Last Filed: 02/14/18 14:38> Subjective - Date & Time of Evaluation Time of Evaluation: 14:15 - Subjective Subjective: Patient was seen and examined at the bedside. Agree with note above. Objective - Vital Signs/Intake and Output Vital Signs (last 24 hours): Temp Pulse Resp BP Pulse Ox 97.5 F L 75 22 126/75 99 02/14/18 12:32 02/14/18 12:32 02/14/18 12:32 02/14/18 12:32 02/14/18 12:32 - Medications Medications: Current Medications Acetaminophen (Tylenol 325mg Tab) 650 mg PO Q4 PRN PRN Reason: Headache Last Admin: 02/11/18 20:01 Dose: 650 mg Amlodipine Besylate (Norvasc) 5 mg PO DAILY [facility] Last Admin: 02/14/18 09:01 Dose: 5 mg Carvedilol (Coreg) 3.125 mg PO Q12 [facility] Last Admin: 02/14/18 08:57 Dose: 3.125 mg Dexamethasone (Decadron Inj) 4 mg IVPB Q12 [facility] Last Admin: 02/14/18 09:02 Dose: 4 mg Famotidine (Pepcid) 20 mg PO BID [facility] Last Admin: 02/14/18 09:01 Dose: 20 mg Ferrous Gluconate (Fergon) 324 mg PO BID [facility] Last Admin: 02/14/18 08:58 Dose: 324 mg Folic Acid (Folic Acid) 1 mg PO DAILY [facility] Last Admin: 02/14/18 08:59 Dose: 1 mg Hydrochlorothiazide (Microzide) 12.5 mg PO DAILY [facility] Last Admin: 02/14/18 09:00 Dose: 12.5 mg Hydroxyzine HCl (Atarax) 50 mg PO DAILY PRN PRN Reason: itchiness Last Admin: 02/12/18 14:21 Dose: 50 mg Levetiracetam (Keppra) 1,000 mg PO BID [facility] Last Admin: 02/14/18 08:59 Dose: 1,000 mg Levothyroxine Sodium (Synthroid) 125 mcg PO DAILY@0630 [facility] Last Admin: 02/14/18 05:34 Dose: 125 mcg Loratadine (Claritin) 10 mg PO DAILY [facility] Last Admin: 02/14/18 08:57 Dose: 10 mg Nitroglycerin (Nitro-Dur 0.1 Mg/Hr Patch) 1 patch TD DAILY [facility] Last Admin: 02/14/18 09:00 Dose: 1 patch Ramipril (Altace) 5 mg PO DAILY [facility] Last Admin: 02/14/18 08:56 Dose: 5 mg Roflumilast (Daliresp) 500 mcg PO DAILY [facility] Last Admin: 02/14/18 08:57 Dose: 500 mcg Thiamine HCl (Vitamin B1 Tab) 100 mg PO DAILY [facility] Last Admin: 02/14/18 09:02 Dose: 100 mg Topiramate (Topamax) 25 mg PO DAILY [facility] Last Admin: 02/14/18 09:02 Dose: 25 mg - Labs Labs: 02/12/18 06:00 02/12/18 06:00 PT 11.7 Seconds (9.8-13.1) 02/08/18 12:14 INR 1.1 02/08/18 12:14 APTT 37.8 Seconds (25.6-37.1) H 02/08/18 12:14 Assessment and Plan - Assessment and Plan (Free Text) Assessment: 63 y.o. female with headaches r/o temporal arteritis Plan: - Hold Aspirin - NPO after midnight - To OR for Right temporal artery biopsy tomorrow
--- NOTE | 2018-02-14 12:58 | CP.PCM.PN ---
Subjective - Date & Time of Evaluation Date of Evaluation: 02/14/18 Time of Evaluation: 12:58 - Subjective Subjective: Abve noted and appreciated. Patient improving well on steroid. Objective - Vital Signs/Intake and Output Vital Signs (last 24 hours): Temp Pulse Resp BP Pulse Ox 97.5 F L 75 22 126/75 99 02/14/18 12:32 02/14/18 12:32 02/14/18 12:32 02/14/18 12:32 02/14/18 12:32 - Medications Medications: Current Medications Acetaminophen (Tylenol 325mg Tab) 650 mg PO Q4 PRN PRN Reason: Headache Last Admin: 02/11/18 20:01 Dose: 650 mg Amlodipine Besylate (Norvasc) 5 mg PO DAILY [facility] Last Admin: 02/14/18 09:01 Dose: 5 mg Aspirin (Ecotrin) 81 mg PO DAILY [facility] Last Admin: 02/14/18 08:58 Dose: 81 mg Carvedilol (Coreg) 3.125 mg PO Q12 [facility] Last Admin: 02/14/18 08:57 Dose: 3.125 mg Dexamethasone (Decadron Inj) 4 mg IVPB Q12 [facility] Last Admin: 02/14/18 09:02 Dose: 4 mg Famotidine (Pepcid) 20 mg PO BID [facility] Last Admin: 02/14/18 09:01 Dose: 20 mg Ferrous Gluconate (Fergon) 324 mg PO BID [facility] Last Admin: 02/14/18 08:58 Dose: 324 mg Folic Acid (Folic Acid) 1 mg PO DAILY [facility] Last Admin: 02/14/18 08:59 Dose: 1 mg Hydrochlorothiazide (Microzide) 12.5 mg PO DAILY [facility] Last Admin: 02/14/18 09:00 Dose: 12.5 mg Hydroxyzine HCl (Atarax) 50 mg PO DAILY PRN PRN Reason: itchiness Last Admin: 02/12/18 14:21 Dose: 50 mg Levetiracetam (Keppra) 1,000 mg PO BID [facility] Last Admin: 02/14/18 08:59 Dose: 1,000 mg Levothyroxine Sodium (Synthroid) 125 mcg PO DAILY@0630 [facility] Last Admin: 02/14/18 05:34 Dose: 125 mcg Loratadine (Claritin) 10 mg PO DAILY [facility] Last Admin: 02/14/18 08:57 Dose: 10 mg Nitroglycerin (Nitro-Dur 0.1 Mg/Hr Patch) 1 patch TD DAILY [facility] Last Admin: 02/14/18 09:00 Dose: 1 patch Ramipril (Altace) 5 mg PO DAILY [facility] Last Admin: 02/14/18 08:56 Dose: 5 mg Roflumilast (Daliresp) 500 mcg PO DAILY [facility] Last Admin: 02/14/18 08:57 Dose: 500 mcg Thiamine HCl (Vitamin B1 Tab) 100 mg PO DAILY [facility] Last Admin: 02/14/18 09:02 Dose: 100 mg Topiramate (Topamax) 25 mg PO DAILY [facility] Last Admin: 02/14/18 09:02 Dose: 25 mg - Labs Labs: 02/12/18 06:00 02/12/18 06:00 PT 11.7 Seconds (9.8-13.1) 02/08/18 12:14 INR 1.1 02/08/18 12:14 APTT 37.8 Seconds (25.6-37.1) H 02/08/18 12:14 - Constitutional Appears: Chronically Ill - Head Exam Head Exam: ATRAUMATIC, NORMAL INSPECTION, NORMOCEPHALIC - Neck Exam Neck Exam: Tenderness - Respiratory Exam Respiratory Exam: Decreased Breath Sounds - Cardiovascular Exam Cardiovascular Exam: REGULAR RHYTHM, +S1, +S2 - GI/Abdominal Exam GI & Abdominal Exam: Soft, Normal Bowel Sounds - Extremities Exam Extremities Exam: Full ROM - Neurological Exam Neurological Exam: Abnormal Gait, Alert, Awake, CN II-XII Intact - Psychiatric Exam Psychiatric exam: Flat Affect - Skin Skin Exam: Normal Color Assessment and Plan (1) Osteoarthritis Status: Chronic (2) Seizure Status: Acute (3) Pulmonary embolism Status: Suspected (4) Dyspnea Status: Acute (5) Chest pain Status: Acute (6) Costochondral chest pain Status: Acute (7) Syncope Status: Acute (8) Bradycardia Status: Ruled-out (9) Carotid stenosis Status: Ruled-out (10) CHF (congestive heart failure) Status: Chronic (11) Vasculitis Status: Suspected (12) Endocarditis Status: Ruled-out - Assessment and Plan (Free Text) Plan: Continue present rx will follow bx.
--- NOTE | 2018-02-14 13:46 | CARD ---
APPROVED REPORT Date of service: 02/06/2018 Protocol: LEXISCAN Test Type: Stress Nuclear Medications: Norvasc 5mg, ASA 81mg, Lovenox 40mg, Fergon 324mg, olic Acid 1mg, Microzide 12.5mg, Plaqvenil 20mg , Keppra [id number], Synthroid 125mg, Altace 5mg, Daliresp 500mg, Medical History: Hypertension, COPD, Cholesterol, diabetes, Migraines, Syncope, Bilateral Knee Joit Replacement, RA Target HR: 159 bpm Resting ECG: premature ventricular contractions Resting Heart Rate: 84 bpm Resting Blood Pressure: /mmHg submaximum (85%): 135 bpm TEST SUMMARY PREINJECTPRE-[id number]. [id number]. INJECTIONNUC MED00:[id number]. [id number]. PROCEDURE Pharmacologic stress testing was performed using 0.4mg per 5ml of regadenoson given intravenously over 7-10 seconds. POST EXERCISE Reason for Termination: Patient unable to walk on treadmill Target HR: No Max HR: 81 bpm 62% of Maximum Predicted HR: 159 bpm Exercise duration: 00:22 min:sec, 0 Stage Exercise capacity: 1.0METs Max Blood Pressure: 174/97mmHg Blood Pressure response to exercise: normal resting BP - appropriate response Heart Rate response to exercise: appropriate Chest Pain: No, none Angina index: 0 Arrhythmia: Yes, ventricular premature beats-pairs ST Change: No, none Deviation: 0 mm Clinical Indications Under Appropriate Use Criteria Patient was referred for stress test due to been unable to walk. She was injected with Lexiscan using the standard protocole at [facility]. Multiple ventricular ectopics were noticed both at rest but much more frequent at exercises. Stress EKG Interpretation -No st or t waves changes were noticed on the electrocardiogram both at rest or during exercises. -Multiple ventricular ectopics were noticed multifocal at configuration both at rest and increased duiring activities. EXAM: Myocardial Perfusion REST/STRESS Image QualityGood Imaging Protocol The imaging protocol used to acquire images was Rest Tc-99m/stress Tc-99m 1 day Time of stress injection: 10:30 Time of stress imagin:32 Gated Stress Spect was performed 120 minutes after intravenous Tc-99 Myoview injection. The images were gated to evaluate regional wall motion and calculate ventricular ejection fraction. NUCLEAR IMAGE INTERPRETATION LV Perfusion There was an area of reversibility on the LAD distribution. It was very small (about 3% of the total LAD reading) LV Perfusion 1 reversible defect in the wall. The rest and stress images show normal perfusion. Wall Motion Normal CONCLUSION 1. 1- Multiple ventricualr ectopics multifocal in configuration both at rest and incresed during activities. 2. 2- No major perfussion defect noticed. 3. 3- Small (less than 3%) reversible defect noticed at the LAD distribution of questionable significance Recommendation -Electrophysiological evaluation recommended for further evaluation of ventricualr arrythmias to determine if there is an area of irritability on the Myocardium causing the ventricular ectopics -Agressive medical therapy
--- NOTE | 2018-02-14 17:18 | CP.PCM.PN ---
Subjective - Date & Time of Evaluation Date of Evaluation: 02/14/18 Time of Evaluation: 17:17 - Subjective Subjective: On steroids for temporal arteritis normal coronaries ? myocarditis Objective - Vital Signs/Intake and Output Vital Signs (last 24 hours): Temp Pulse Resp BP Pulse Ox 97.9 F 67 18 115/56 L 100 02/14/18 15:24 02/14/18 15:24 02/14/18 15:24 02/14/18 15:24 02/14/18 15:24 - Medications Medications: Current Medications Acetaminophen (Tylenol 325mg Tab) 650 mg PO Q4 PRN PRN Reason: Headache Last Admin: 02/11/18 20:01 Dose: 650 mg Amlodipine Besylate (Norvasc) 5 mg PO DAILY [facility] Last Admin: 02/14/18 09:01 Dose: 5 mg Carvedilol (Coreg) 3.125 mg PO Q12 [facility] Last Admin: 02/14/18 08:57 Dose: 3.125 mg Dexamethasone (Decadron Inj) 4 mg IVPB Q12 [facility] Last Admin: 02/14/18 09:02 Dose: 4 mg Famotidine (Pepcid) 20 mg PO BID [facility] Last Admin: 02/14/18 09:01 Dose: 20 mg Ferrous Gluconate (Fergon) 324 mg PO BID [facility] Last Admin: 02/14/18 08:58 Dose: 324 mg Folic Acid (Folic Acid) 1 mg PO DAILY [facility] Last Admin: 02/14/18 08:59 Dose: 1 mg Hydrochlorothiazide (Microzide) 12.5 mg PO DAILY [facility] Last Admin: 02/14/18 09:00 Dose: 12.5 mg Hydroxyzine HCl (Atarax) 50 mg PO DAILY PRN PRN Reason: itchiness Last Admin: 02/12/18 14:21 Dose: 50 mg Vancomycin HCl 1 gm/ Sodium (Chloride) 250 mls @ 166.667 mls/hr IVPB Q12 [facility] PRN Reason: Protocol Levetiracetam (Keppra) 1,000 mg PO BID [facility] Last Admin: 02/14/18 08:59 Dose: 1,000 mg Levothyroxine Sodium (Synthroid) 125 mcg PO DAILY@0630 [facility] Last Admin: 02/14/18 05:34 Dose: 125 mcg Loratadine (Claritin) 10 mg PO DAILY [facility] Last Admin: 02/14/18 08:57 Dose: 10 mg Nitroglycerin (Nitro-Dur 0.1 Mg/Hr Patch) 1 patch TD DAILY [facility] Last Admin: 02/14/18 09:00 Dose: 1 patch Ramipril (Altace) 5 mg PO DAILY [facility] Last Admin: 02/14/18 08:56 Dose: 5 mg Roflumilast (Daliresp) 500 mcg PO DAILY [facility] Last Admin: 02/14/18 08:57 Dose: 500 mcg Thiamine HCl (Vitamin B1 Tab) 100 mg PO DAILY [facility] Last Admin: 02/14/18 09:02 Dose: 100 mg Topiramate (Topamax) 25 mg PO DAILY [facility] Last Admin: 02/14/18 09:02 Dose: 25 mg - Labs Labs: 02/12/18 06:00 02/12/18 06:00 PT 11.7 Seconds (9.8-13.1) 02/08/18 12:14 INR 1.1 02/08/18 12:14 APTT 37.8 Seconds (25.6-37.1) H 02/08/18 12:14 - Constitutional Appears: Well - Head Exam Head Exam: ATRAUMATIC, NORMAL INSPECTION, NORMOCEPHALIC - Eye Exam Eye Exam: EOMI, Normal appearance, PERRL Pupil Exam: NORMAL ACCOMODATION, PERRL - ENT Exam ENT Exam: Mucous Membranes Moist, Normal Exam - Neck Exam Neck Exam: Full ROM, Normal Inspection. absent: Lymphadenopathy - Respiratory Exam Respiratory Exam: Clear to Ausculation Bilateral, NORMAL BREATHING PATTERN - Cardiovascular Exam Cardiovascular Exam: REGULAR RHYTHM, +S1, +S2. absent: Murmur - GI/Abdominal Exam GI & Abdominal Exam: Soft, Normal Bowel Sounds. absent: Tenderness - Extremities Exam Extremities Exam: Full ROM, Normal Capillary Refill, Normal Inspection. absent : Joint Swelling, Pedal Edema - Back Exam Back Exam: NORMAL INSPECTION - Neurological Exam Neurological Exam: Alert, Awake, CN II-XII Intact, Normal Gait, Oriented x3 - Psychiatric Exam Psychiatric exam: Normal Affect, Normal Mood - Skin Skin Exam: Dry, Intact, Normal Color, Warm Assessment and Plan (1) Myocarditis Status: Acute (2) Chest pain Status: Acute (3) COPD (chronic obstructive pulmonary disease) Status: Chronic (4) Costochondral chest pain Status: Acute (5) Syncope Status: Acute (6) Carotid stenosis Status: Ruled-out (7) REINOSO (dyspnea on exertion) Status: Acute
[2018-02-15 01:55] LABS: ANCA SCREEN NEGATIVE (NEGATIVE)
[2018-02-15] MEDS: Levothyroxine 125 MCG TAB PO SCH (07:02)
[2018-02-15] MEDS ORDERED: Rocuronium 10 mg/ml (5 ml) ONE (07:22)
[2018-02-15] MEDS ORDERED: Midazolam 2 MG/2 ML VIAL ONE (07:22)
[2018-02-15] MEDS ORDERED: Phenylephrine 10 mg/ml Inj ONE (07:22)
[2018-02-15] MEDS ORDERED: Succinylcholine 200 mg/10 ml Inj IV ONE (07:22)
[2018-02-15] MEDS ORDERED: Lidocaine 2% MPF (5 ml) Inj ONE ×2 (07:22)
[2018-02-15] MEDS ORDERED: Propofol 10 mg/ml Inj (20 ML) ONE (07:22)
[2018-02-15] MEDS ORDERED: ePHEDrine 50 mg/ml Inj ONE (07:22)
[2018-02-15] MEDS ORDERED: Sodium Chloride 0.9% 10 ML IV ONE (07:29)
[2018-02-15] MEDS ORDERED: Lactated Ringer's 1,000 ML IV ONE (08:23)
[2018-02-15] MEDS ORDERED: Lidocaine 2% MPF (5 ml) Inj INJ ONE ×2 (09:05→09:24)
[2018-02-15] MEDS ORDERED: Neostigmine 1:1000 (1 mg/ml) Inj ONE (09:15)
--- NOTE | 2018-02-15 09:38 | PCM.SURG1 ---
Surgeon's Initial Post Op Note - Surgeon's Notes Surgeon: Dr. Ghosh Forming Operator: Dr. Feliciano PGY-3 Type of Anesthesia: General Endo Anesthesia Administered By: Dr. Harrison Pre-Operative Diagnosis: Headaches, r/o temporal arteritis Operative Findings: See operative report Post-Operative Diagnosis: Same Operation Performed: Temporal artery biopsy Right Specimen/Specimens Removed: Piece of temporal artery Estimated Blood Loss: EBL {In ML}: 2 Blood Products Given: N/A Drains Used: No Drains Post-Op Condition: Good Date of Surgery/Procedure: 02/15/18 Time of Surgery/Procedure: 09:37
[2018-02-15] MEDS ORDERED: HYDROmorphone 0.5 mg/0.5 ml ISec IVP PRN (10:14)
[2018-02-15] MEDS ORDERED: Atropine 0.4 mg/ml Inj (1 mL) IV PRN (10:18)
--- NOTE | 2018-02-15 13:36 | CP.PCM.PN ---
Subjective - Date & Time of Evaluation Date of Evaluation: 02/15/18 Time of Evaluation: 13:37 - Subjective Subjective: Above noted and appreciated. DC vanco, decrease steroid. BX pending. Patent improving. Objective - Vital Signs/Intake and Output Vital Signs (last 24 hours): Temp Pulse Resp BP Pulse Ox 97.0 F L 69 18 118/53 L 96 02/15/18 11:00 02/15/18 11:00 02/15/18 11:00 02/15/18 11:00 02/15/18 11:00 Intake and Output: 02/15/18 02/15/18 11:59 23:59 Intake Total 325 Balance 325 - Medications Medications: Current Medications Acetaminophen (Tylenol 325mg Tab) 650 mg PO Q4 PRN PRN Reason: Headache Last Admin: 02/11/18 20:01 Dose: 650 mg Amlodipine Besylate (Norvasc) 5 mg PO DAILY [facility] Last Admin: 02/14/18 09:01 Dose: 5 mg Atropine Sulfate (Atropine) 0.4 mg IV ONCE PRN PRN Reason: BRADYCARDIA HR<50 Carvedilol (Coreg) 3.125 mg PO Q12 [facility] Last Admin: 02/15/18 06:37 Dose: 3.125 mg Dexamethasone (Decadron Inj) 4 mg IVPB DAILY [facility] Famotidine (Pepcid) 20 mg PO BID [facility] Last Admin: 02/14/18 17:37 Dose: 20 mg Ferrous Gluconate (Fergon) 324 mg PO BID [facility] Last Admin: 02/14/18 17:36 Dose: 324 mg Folic Acid (Folic Acid) 1 mg PO DAILY [facility] Last Admin: 02/14/18 08:59 Dose: 1 mg Hydrochlorothiazide (Microzide) 12.5 mg PO DAILY [facility] Last Admin: 02/14/18 09:00 Dose: 12.5 mg Hydromorphone HCl (Dilaudid) 0.5 mg IVP Q5MIN PRN PRN Reason: PAIN LEVEL >=4 MAXIMUM=1 MG Hydroxyzine HCl (Atarax) 50 mg PO DAILY PRN PRN Reason: itchiness Last Admin: 02/12/18 14:21 Dose: 50 mg Levetiracetam (Keppra) 1,000 mg PO BID [facility] Last Admin: 02/14/18 17:36 Dose: 1,000 mg Levothyroxine Sodium (Synthroid) 125 mcg PO DAILY@0630 [facility] Last Admin: 02/15/18 07:02 Dose: Not Given Loratadine (Claritin) 10 mg PO DAILY [facility] Last Admin: 02/14/18 08:57 Dose: 10 mg Nitroglycerin (Nitro-Dur 0.1 Mg/Hr Patch) 1 patch TD DAILY [facility] Last Admin: 02/14/18 09:00 Dose: 1 patch Ramipril (Altace) 5 mg PO DAILY [facility] Last Admin: 02/15/18 06:37 Dose: 5 mg Roflumilast (Daliresp) 500 mcg PO DAILY [facility] Last Admin: 02/14/18 08:57 Dose: 500 mcg Thiamine HCl (Vitamin B1 Tab) 100 mg PO DAILY [facility] Last Admin: 02/14/18 09:02 Dose: 100 mg Topiramate (Topamax) 25 mg PO DAILY [facility] Last Admin: 02/14/18 09:02 Dose: 25 mg - Labs Labs: 02/12/18 06:00 02/12/18 06:00 PT 11.7 Seconds (9.8-13.1) 02/08/18 12:14 INR 1.1 02/08/18 12:14 APTT 37.8 Seconds (25.6-37.1) H 02/08/18 12:14 - Constitutional Appears: Chronically Ill - Head Exam Head Exam: NORMOCEPHALIC - Eye Exam Eye Exam: Normal appearance - ENT Exam ENT Exam: Mucous Membranes Moist - Respiratory Exam Respiratory Exam: Clear to Ausculation Bilateral - Cardiovascular Exam Cardiovascular Exam: REGULAR RHYTHM, +S1, +S2 - GI/Abdominal Exam GI & Abdominal Exam: Soft, Normal Bowel Sounds - Neurological Exam Neurological Exam: Alert, Awake, Oriented x3 - Psychiatric Exam Psychiatric exam: Normal Affect - Skin Skin Exam: Normal Color Assessment and Plan (1) Osteoarthritis Status: Chronic (2) Seizure Status: Acute (3) Pulmonary embolism Status: Suspected (4) Dyspnea Status: Acute (5) Chest pain Status: Acute (6) Costochondral chest pain Status: Acute (7) Syncope Status: Acute (8) Bradycardia Status: Ruled-out (9) Carotid stenosis Status: Ruled-out (10) CHF (congestive heart failure) Status: Chronic (11) Vasculitis Status: Suspected (12) Endocarditis Status: Ruled-out - Assessment and Plan (Free Text) Plan: As above
[2018-02-15] MEDS: Nitroglycerin 0.1 mg/hr Top Patch TD SCH (18:18)
--- NOTE | 2018-02-15 21:22 | OP ---
PROCEDURE DATE: 02/15/2018 PREOPERATIVE DIAGNOSIS: Right-sided headaches. POSTOPERATIVE DIAGNOSIS: Right-sided headaches. PROCEDURE: Right temporal artery biopsy. SURGEON: Win Ghosh MD. RAG GRADER: Madison Feliciano DO. ANESTHESIOLOGIST: Dr. Harrison. ANESTHESIA: General with endotracheal intubation. IV FLUIDS: Crystalloids. ESTIMATED BLOOD LOSS: Less than 1 mL. INTRAOPERATIVE FINDINGS: Right temporal artery. SPECIMEN: Right temporal artery. BRIEF HISTORY: Ms. Street is a pleasant 62-year-old female, who came to the hospital for syncopal episode and new onset of bradycardia. However, the patient was complaining of right-sided headache and had elevation of ESR, so surgical consultation was obtained for right temporal artery biopsy. All the risks and benefits of the procedure were explained to the patient with the patient having a full understanding of all the risks and benefits involved. Informed consent was obtained and the patient was taken to the operating room for the above stated procedure. DESCRIPTION OF PROCEDURE: The patient was brought into the operating room and placed supine on the operating table. Bilateral Flowtron boots were applied to the patient's lower extremities. After successful induction of anesthesia and successful endotracheal intubation by the anesthesia team, the patient's right temporal area were shaved and prepped with ChloraPrep and draped in a standard surgical fashion. Prior to the beginning of the procedure, the patient received prophylactic Ancef antibiotic. Time-out was called in the room and everyone in the room were in agreement. Using a 15-blade scalpel knife, approximately 1.5-cm incision was made in the longitudinal fashion in a right temporal area in front of the ear. Subsequent to that, dissection was carried down with electrocautery for the subcutaneous tissues until the temporal artery was encountered. Temporal artery was dissected off with electrocautery and hemostat. Subsequent to that, proximal and distal control of temporal artery was obtained with 2-0 silk ties. At this point, ties were tied down. The artery was transected with #15 blade scalpel knife and passed off to the Telfa as a specimen. At this point in time, the hemostasis was confirmed and 2 deep dermal sutures with 3-0 Vicryl were placed, and subsequent to that, skin was approximated with 4-0 Monocryl suture in a running subcuticular fashion. At the end of the procedure, incision was infiltrated with 2% lidocaine anesthetic. The patient's right temporal area was washed and dried and Dermabond was applied to the site of the incision. The patient was successfully extubated by the anesthesia team, transferred to the stretcher, and taken to the recovery room in a stable condition. At the end of the procedure, all instrument counts, needles, and sponges were correct. Win Ghosh MD
[2018-02-16] MEDS: Levothyroxine 125 MCG TAB PO SCH (06:23)
[2018-02-16] MEDS ORDERED: Influenza Vaccine 60 MCG/0.5 ML SYR (3 yr & up) IM ONE (06:37)
--- NOTE | 2018-02-16 08:47 | CP.PCM.PN ---
Subjective - Date & Time of Evaluation Date of Evaluation: 02/16/18 Time of Evaluation: 08:42 - Subjective Subjective: General Surgery Pt seen and examined this AM. Eating her breakfast in NAD. Pt denies any n/v, visual changes or headaches. She does report she feels intermittent right eye swelling since surgery. Vitals noted. No new labs PE Gen: Pt sitting in bed in NAD Skin: warm and dry HENT: Normocephalic, (-) scalp tenderness, surgical incision anterior to right ear dermabonded, (-) tenderness, (-) erythema, (-) right periorbital swelling. Cardio: S1S2 RRR Lungs: CTA bilaterally A/P Headaches r/o temporal arteritis POD 1 s/p temporal artery biopsy Pt denies headaches today Pathology pending Continue medical management General surgery will sign off Objective - Vital Signs/Intake and Output Vital Signs (last 24 hours): Temp Pulse Resp BP Pulse Ox 97.8 F 60 18 95/64 L 100 02/16/18 08:20 02/16/18 08:20 02/16/18 08:20 02/16/18 08:20 02/16/18 08:20 - Medications Medications: Current Medications Acetaminophen (Tylenol 325mg Tab) 650 mg PO Q4 PRN PRN Reason: Headache Last Admin: 02/11/18 20:01 Dose: 650 mg Atropine Sulfate (Atropine) 0.4 mg IV ONCE PRN PRN Reason: BRADYCARDIA HR<50 Carvedilol (Coreg) 3.125 mg PO Q12 [facility] Last Admin: 02/15/18 21:54 Dose: Not Given Dexamethasone (Decadron) 1 mg PO Q12 [facility] Famotidine (Pepcid) 20 mg PO BID [facility] Last Admin: 02/15/18 18:00 Dose: 20 mg Ferrous Gluconate (Fergon) 324 mg PO BID [facility] Last Admin: 02/15/18 17:59 Dose: 324 mg Folic Acid (Folic Acid) 1 mg PO DAILY [facility] Last Admin: 02/14/18 08:59 Dose: 1 mg Hydrochlorothiazide (Microzide) 12.5 mg PO DAILY [facility] Last Admin: 02/14/18 09:00 Dose: 12.5 mg Hydromorphone HCl (Dilaudid) 0.5 mg IVP Q5MIN PRN PRN Reason: PAIN LEVEL >=4 MAXIMUM=1 MG Hydroxyzine HCl (Atarax) 50 mg PO DAILY PRN PRN Reason: itchiness Last Admin: 02/12/18 14:21 Dose: 50 mg Levetiracetam (Keppra) 1,000 mg PO BID [facility] Last Admin: 02/15/18 17:59 Dose: 1,000 mg Levothyroxine Sodium (Synthroid) 125 mcg PO DAILY@0630 [facility] Last Admin: 02/16/18 06:23 Dose: 125 mcg Loratadine (Claritin) 10 mg PO DAILY [facility] Last Admin: 02/14/18 08:57 Dose: 10 mg Ramipril (Altace) 5 mg PO DAILY [facility] Last Admin: 02/15/18 18:12 Dose: Not Given Roflumilast (Daliresp) 500 mcg PO DAILY [facility] Last Admin: 02/14/18 08:57 Dose: 500 mcg Thiamine HCl (Vitamin B1 Tab) 100 mg PO DAILY [facility] Last Admin: 02/14/18 09:02 Dose: 100 mg Topiramate (Topamax) 25 mg PO DAILY [facility] Last Admin: 02/14/18 09:02 Dose: 25 mg - Labs Labs: 02/12/18 06:00 02/12/18 06:00 PT 11.7 Seconds (9.8-13.1) 02/08/18 12:14 INR 1.1 02/08/18 12:14 APTT 37.8 Seconds (25.6-37.1) H 02/08/18 12:14 Assessment and Plan (1) Headache Status: Acute
[2018-02-16] MEDS ORDERED: Dexamethasone 4 mg/1 ml IVPB SCH (09:00)
[2018-02-16 09:13] LABS: BASO % 0.2 % (0.0-2.0); EOS # 0.1 K/uL (0.0-0.7); EOS % 1.5 % (0.0-4.0); HEMOGLOBIN 12.6 g/dL (12.0-16.0); LYMPH % 24.7 % (20.0-40.0); MEAN CELL VOLUME 92.3 fl (81.0-99.0); MEAN CORPUSCULAR HEMOGLOBIN 31.9 pg (27.0-31.0); MEAN CORPUSCULAR HGB CONC 34.6 g/dL (33.0-37.0); MEAN PLATELET VOLUME 8.4 fl (7.2-11.7); MONO # 0.6 K/uL (0.0-0.8); MONO % 7.9 % (0.0-10.0); NEUT # 5.3 K/uL (1.8-7.0); NEUT % 65.7 % (50.0-75.0); RBC 3.96 Mil/uL (3.80-5.20); RED CELL DISTRIBUTION WIDTH 13.2 % (11.5-14.5); WHITE BLOOD COUNT 8.1 K/uL (4.8-10.8)
[2018-02-16 09:17] LABS: BLOOD UREA NITROGEN 28 mg/dl (7-17); CALCIUM 9.5 mg/dL (8.4-10.2); GFR NON-AFRICAN AMERICAN 56
--- NOTE | 2018-02-16 11:09 | CP.PCM.PN ---
Subjective - Date & Time of Evaluation Date of Evaluation: 02/16/18 Time of Evaluation: 08:00 - Subjective Subjective: feels well afeb all cultures negative Objective - Vital Signs/Intake and Output Vital Signs (last 24 hours): Temp Pulse Resp BP Pulse Ox 97.8 F 60 18 95/64 L 100 02/16/18 08:20 02/16/18 09:00 02/16/18 08:20 02/16/18 08:50 02/16/18 08:20 - Medications Medications: Current Medications Acetaminophen (Tylenol 325mg Tab) 650 mg PO Q4 PRN PRN Reason: Headache Last Admin: 02/11/18 20:01 Dose: 650 mg Atropine Sulfate (Atropine) 0.4 mg IV ONCE PRN PRN Reason: BRADYCARDIA HR<50 Carvedilol (Coreg) 3.125 mg PO Q12 [facility] Last Admin: 02/16/18 08:50 Dose: Not Given Dexamethasone (Decadron) 1 mg PO Q12 [facility] Famotidine (Pepcid) 20 mg PO BID [facility] Last Admin: 02/16/18 08:46 Dose: 20 mg Ferrous Gluconate (Fergon) 324 mg PO BID [facility] Last Admin: 02/16/18 08:46 Dose: 324 mg Folic Acid (Folic Acid) 1 mg PO DAILY [facility] Last Admin: 02/16/18 08:46 Dose: 1 mg Hydrochlorothiazide (Microzide) 12.5 mg PO DAILY [facility] Last Admin: 02/16/18 08:46 Dose: Not Given Hydromorphone HCl (Dilaudid) 0.5 mg IVP Q5MIN PRN PRN Reason: PAIN LEVEL >=4 MAXIMUM=1 MG Hydroxyzine HCl (Atarax) 50 mg PO DAILY PRN PRN Reason: itchiness Last Admin: 02/12/18 14:21 Dose: 50 mg Levetiracetam (Keppra) 1,000 mg PO BID [facility] Last Admin: 02/16/18 08:47 Dose: 1,000 mg Levothyroxine Sodium (Synthroid) 125 mcg PO DAILY@0630 [facility] Last Admin: 02/16/18 06:23 Dose: 125 mcg Loratadine (Claritin) 10 mg PO DAILY [facility] Last Admin: 02/16/18 08:47 Dose: 10 mg Ramipril (Altace) 5 mg PO DAILY [facility] Last Admin: 02/16/18 08:50 Dose: Not Given Roflumilast (Daliresp) 500 mcg PO DAILY [facility] Last Admin: 02/16/18 08:46 Dose: 500 mcg Thiamine HCl (Vitamin B1 Tab) 100 mg PO DAILY [facility] Last Admin: 02/16/18 08:46 Dose: 100 mg Topiramate (Topamax) 25 mg PO DAILY [facility] Last Admin: 02/16/18 08:47 Dose: 25 mg - Labs Labs: 02/16/18 08:30 02/16/18 08:30 PT 11.7 Seconds (9.8-13.1) 02/08/18 12:14 INR 1.1 02/08/18 12:14 APTT 37.8 Seconds (25.6-37.1) H 02/08/18 12:14 - Constitutional Appears: Non-toxic, Chronically Ill - Head Exam Head Exam: NORMOCEPHALIC - Eye Exam Eye Exam: PERRL - ENT Exam ENT Exam: Mucous Membranes Dry - Neck Exam Neck Exam: absent: Lymphadenopathy - Respiratory Exam Respiratory Exam: Decreased Breath Sounds - Cardiovascular Exam Cardiovascular Exam: REGULAR RHYTHM - GI/Abdominal Exam GI & Abdominal Exam: Distended - Rectal Exam Rectal Exam: Deferred - Exam Exam: NORMAL INSPECTION Assessment and Plan (1) Headache Status: Acute (2) Syncope Status: Acute (3) CHF (congestive heart failure) Status: Chronic (4) Endocarditis Status: Ruled-out (5) Bradycardia Status: Ruled-out (6) Carotid stenosis Status: Ruled-out - Assessment and Plan (Free Text) Assessment: d/c home follow up with neuro
[2018-02-16 12:13] VITALS: BP 100/54; PULSE 69; RESP 16; TEMP 98.4; O2SAT 98
--- NOTE | 2018-02-16 13:04 | CP.PCM.DIS ---
Provider - Provider Date of Admission: 02/03/18 12:38 Attending physician: Nicola Richter MD Primary care physician: Nicola Richter MD Time Spent in preparation of Discharge (in minutes): 30 Diagnosis - Discharge Diagnosis (1) Osteoarthritis Status: Chronic (2) Seizure Status: Acute (3) Pulmonary embolism Status: Suspected (4) Dyspnea Status: Acute (5) Chest pain Status: Acute (6) Costochondral chest pain Status: Acute (7) Syncope Status: Acute (8) Bradycardia Status: Ruled-out (9) Carotid stenosis Status: Ruled-out (10) CHF (congestive heart failure) Status: Chronic (11) Vasculitis Status: Suspected (12) Endocarditis Status: Ruled-out Hospital Course - Lab Results Lab Results: Micro Results 02/11/18 14:36 Blood-Venous Blood Culture - Preliminary NO GROWTH AFTER 4 DAYS 02/11/18 14:26 Blood-Venous Blood Culture - Preliminary NO GROWTH AFTER 4 DAYS 02/11/18 19:10 Urine,Clean Catch Urine Culture - Final No Growth (<1,000 CFU/ML) 02/02/18 11:42 Urine,Random Urine Culture - Final No Growth (<1,000 CFU/ML) Most Recent Lab Values WBC 8.1 K/uL (4.8-10.8) 02/16/18 08:30 RBC 3.96 Mil/uL (3.80-5.20) 02/16/18 08:30 Hgb 12.6 g/dL (12.0-16.0) 02/16/18 08:30 Hct 36.6 % (34.0-47.0) 02/16/18 08:30 MCV 92.3 fl (81.0-99.0) 02/16/18 08:30 MCH 31.9 pg (27.0-31.0) H 02/16/18 08:30 MCHC 34.6 g/dL (33.0-37.0) 02/16/18 08:30 RDW 13.2 % (11.5-14.5) 02/16/18 08:30 Plt Count 219 K/uL (130-400) 02/16/18 08:30 MPV 8.4 fl (7.2-11.7) 02/16/18 08:30 Neut % (Auto) 65.7 % (50.0-75.0) 02/16/18 08:30 Lymph % (Auto) 24.7 % (20.0-40.0) 02/16/18 08:30 [place] % (Auto) 7.9 % (0.0-10.0) 02/16/18 08:30 Eos % (Auto) 1.5 % (0.0-4.0) 02/16/18 08:30 Baso % (Auto) 0.2 % (0.0-2.0) 02/16/18 08:30 Neut # (Auto) 5.3 K/uL (1.8-7.0) 02/16/18 08:30 Lymph # (Auto) 2.0 K/uL (1.0-4.3) 02/16/18 08:30 [place] # (Auto) 0.6 K/uL (0.0-0.8) 02/16/18 08:30 Eos # (Auto) 0.1 K/uL (0.0-0.7) 02/16/18 08:30 Baso # (Auto) 0.0 K/uL (0.0-0.2) 02/16/18 08:30 ESR 80 mm/hr (0-30) H 02/11/18 13:47 PT 11.7 Seconds (9.8-13.1) 02/08/18 12:14 INR 1.1 02/08/18 12:14 APTT 37.8 Seconds (25.6-37.1) H 02/08/18 12:14 D-Dimer, Quantitative 379 ng/mlDDU (0-230) H 02/03/18 13:00 Lupus Anticoagulant see note 02/05/18 10:34 LA PTT Screen 45 sec (<=40) H 02/05/18 10:34 dRVVT Mixing Study 32 sec (<=45) 02/05/18 10:34 dRVVT Mix Interpret Not indicated 02/05/18 10:34 Hexagonal Phase Confirm Negative (Negative) 02/05/18 10:34 pCO2 39 mm/Hg (35-45) 02/05/18 08:52 pO2 86 mm/Hg (80-100) 02/05/18 08:52 HCO3 27.8 mmol/L (21-28) 02/05/18 08:52 ABG pH 7.46 (7.35-7.45) H 02/05/18 08:52 ABG Total CO2 28.9 mmol/L (22-28) H 02/05/18 08:52 ABG O2 Saturation 99.1 % (95-98) H 02/05/18 08:52 ABG O2 Content 19.2 ML/dL (15-23) 02/05/18 08:52 ABG Base Excess 3.7 mmol/L (-2.0-3.0) H 02/05/18 08:52 ABG Hemoglobin 14.3 g/dL (11.7-17.4) 02/05/18 08:52 ABG Carboxyhemoglobin 2.2 % (0.5-1.5) H 02/05/18 08:52 POC ABG HHb (Measured) 0.9 % (0.0-5.0) 02/05/18 08:52 ABG Methemoglobin 1.6 % (0.0-3.0) 02/05/18 08:52 ABG O2 Capacity 19.4 mL/dL (16-24) 02/05/18 08:52 Da Test Yes 02/05/18 08:52 A-a O2 Difference 15.0 mm/Hg 02/05/18 08:52 Hgb O2 Saturation 95.3 % (95.0-98.0) 02/05/18 08:52 FiO2 21.0 % 02/05/18 08:52 Blood Gas Comments 21%,rb 02/05/18 08:52 Crit Value Read Back N 02/05/18 08:52 Sodium 139 mmol/l (132-148) 02/16/18 08:30 Potassium 4.1 MMOL/L (3.6-5.0) 02/16/18 08:30 Chloride 103 mmol/L (98-107) 02/16/18 08:30 Carbon Dioxide 32 mmol/L (22-30) H 02/16/18 08:30 Anion Gap 8 (10-20) L 02/16/18 08:30 BUN 28 mg/dl (7-17) H 02/16/18 08:30 Creatinine 1.0 mg/dl (0.7-1.2) 02/16/18 08:30 Est GFR ( Amer) > 60 02/16/18 08:30 Est GFR (Non-Af Amer) 56 02/16/18 08:30 POC Glucose (mg/dL) 99 mg/dL (65-110) 02/02/18 11:03 Random Glucose 92 mg/dL (65-105) 02/16/18 08:30 Hemoglobin A1c 5.5 % (4.2-6.5) 02/03/18 09:24 Fructosamine 256 umol/L (190-270) 02/03/18 09:24 Calcium 9.5 mg/dL (8.4-10.2) 02/16/18 08:30 Phosphorus 4.3 mg/dl (2.5-4.5) 02/04/18 07:59 Magnesium 1.9 MG/DL (1.6-2.3) 02/04/18 07:59 Total Bilirubin 0.5 mg/dl (0.2-1.3) 02/04/18 07:59 AST 28 U/L (14-36) 02/04/18 07:59 ALT 24 U/L (9-52) 02/04/18 07:59 Alkaline Phosphatase 81 U/L (38-126) 02/04/18 07:59 Total Creatine Kinase 45 U/L (30-135) 02/12/18 06:00 Troponin I < 0.0120 ng/mL (0.00-0.120) 02/09/18 12:01 C-Reactive Protein 15.20 mg/L (0.0-9.9) H 02/10/18 11:06 NT-Pro-B Natriuret Pep 56.1 pg/ml (0-900) 02/04/18 04:20 Total Protein 7.6 G/DL (6.3-8.2) 02/04/18 07:59 Albumin 4.2 g/dL (3.5-5.0) 02/04/18 07:59 Globulin 3.4 gm/dL (2.2-3.9) 02/04/18 07:59 Albumin/Globulin Ratio 1.2 (1.0-2.1) 02/04/18 07:59 Aldosterone 7 ng/dL (see note) 02/03/18 09:24 Vitamin B12 564 pg/mL (239-931) 02/03/18 09:24 Folate > 20.0 ng/mL 02/03/18 09:24 Procalcitonin < 0.05 NG/ML (0.19-0.49) L 02/11/18 17:36 TSH 3rd Generation 1.85 mIU/ML (0.46-4.68) 02/11/18 13:47 Cortisol AM Sample 13.4 ug/dL (4.46-22.7) 02/03/18 09:24 Urine Color Yellow (YELLOW) 02/02/18 11:42 Urine Clarity Clear (Clear) 02/02/18 11:42 Urine pH 6.0 (5.0-8.0) 02/02/18 11:42 Ur Specific [place] 1.013 (1.003-1.030) 02/02/18 11:42 Urine Protein Negative mg/dL (NEGATIVE) 02/02/18 11:42 Urine Glucose (UA) Neg mg/dL (Normal) 02/02/18 11:42 Urine Ketones Negative mg/dL (NEGATIVE) 02/02/18 11:42 Urine Blood Negative (NEGATIVE) 02/02/18 11:42 Urine Nitrate Negative (NEGATIVE) 02/02/18 11:42 Urine Bilirubin Negative (NEGATIVE) 02/02/18 11:42 Urine Urobilinogen 0.2-1.0 mg/dL (0.2-1.0) 02/02/18 11:42 Ur Leukocyte Esterase Neg [place]/uL (Negative) 02/02/18 11:42 Urine RBC (Auto) < 1 /hpf (0-3) 02/02/18 11:42 Urine Microscopic WBC 1 /hpf (0-5) 02/02/18 11:42 Ur Squamous Epith Cells < 1 /hpf (0-5) 02/02/18 11:42 Vancomycin Trough 14.0 ug/mL (5.0-10.0) H 02/13/18 15:50 Serum Immunofixation Not detected (Not Detected) 02/11/18 19:08 [place] Screen Positive (Negative) H 02/03/18 09:24 [place] Titer 1:80 Titer (<1:40) H 02/03/18 09:24 [place] Titer 2 1:80 Titer (<1:40) H 02/03/18 09:24 [place] Pattern Homogeneous H 02/03/18 09:24 [place] Pattern 2 Speckled H 02/03/18 09:24 ANCA Screen Negative (NEGATIVE) 02/11/18 19:08 c-ANCA Titer TNP 02/11/18 19:08 Proteinase 3 (PR3) <1.0 AI (<1.0) 02/11/18 19:08 p-ANCA Titer TNP 02/11/18 19:08 Atypical p-ANCA Titer TNP 02/11/18 19:08 Myeloperoxidase Ab <1.0 AI (<1.0) 02/11/18 19:08 Complement C3 150.0 mg/dL (88.0-165.0) 02/11/18 19:08 Complement C4 49.3 mg/dL (14.0-44.0) H 02/11/18 19:08 RPR Nonreactive (NONREACTIVE) 02/12/18 06:00 Lyme IgG 18 kDa Band Nonreactive 02/03/18 09:24 Lyme IgG 23 kDa Band Nonreactive 02/03/18 09:24 Lyme IgG 28 kDa Band Nonreactive 02/03/18 09:24 Lyme IgG 30 kDa Band Nonreactive 02/03/18 09:24 Lyme IgG 39 kDa Band Nonreactive 02/03/18 09:24 Lyme IgG 41 kDa Band Nonreactive 02/03/18 09:24 Lyme IgG 45 kDa Band Nonreactive 02/03/18 09:24 Lyme IgG 58 kDa Band Nonreactive 02/03/18 09:24 Lyme IgG 66 kDa Band Nonreactive 02/03/18 09:24 Lyme IgG 93 kDa Band Nonreactive 02/03/18 09:24 Lyme IgG W Blot Interp Negative (Negative) 02/03/18 09:24 Lyme IgM 23 kDa Band Nonreactive 02/03/18 09:24 Lyme IgM 39 kDa Band Nonreactive 02/03/18 09:24 Lyme IgM 41 kDa Band Nonreactive 02/03/18 09:24 Lyme IgM W Blot Interp Negative (Negative) 02/03/18 09:24 HIV 1&2 Antibody Screen Negative (NEGATIVE) 02/12/18 06:00 - Hospital Course Hospital Course: 62 y/o female with hx of SLE, COPD, morbid obesity, seizure, htn. She c/o several episodes of syncope for the past few weeks. She was hospitalized recently with no definitive dx of her condition. The day of admission she had an episode of syncope and she presented in ER for further evaluation. She was placed on telemetry that reveled several episodes of tachyarrhythmia associated with migraine and CP, constrictive with irradiation to the lt arm. The pain is at rest. Initially she was placed on obs. Will change to regular admission for recurrent syncope with arrhythmia and CP. patient had an extensive neuro and cardio w/u. The condition appear to be related to the SLE. She well responded to steroid rx will follow as OP. Discharge Exam - Head Exam Head Exam: NORMOCEPHALIC - Eye Exam Eye Exam: Normal appearance - Neck Exam Neck exam: Full Rom - Respiratory Exam Respiratory Exam: Clear to PA & Lateral - Cardiovascular Exam Cardiovascular Exam: REGULAR RHYTHM, +S1, +S2 - GI/Abdominal Exam GI & Abdominal Exam: Normal Bowel Sounds - Neurological Exam Neurological exam: Alert, CN II-XII Intact, Oriented x3 - Psychiatric Exam Psychiatric exam: Normal Affect - Skin Skin Exam: Normal Color Discharge Plan - Follow Up Plan Condition: FAIR Disposition: HOME/ ROUTINE Instructions: Syncope (Fainting) (DC) Additional Instructions: follow up with in 1 week you may shower tomorrow not bathe until wound has closed keep the site clean and dry.re-apply a clean dry bandaid every day for 5 days or until scab has formed no driving limit tight fitting clothes or underwear no heavy lifting for a minimum of 3 days Referrals: Masoud Nagy MD [Staff Provider] - Nicola Richter MD [Primary Care Provider] -
--- NOTE | 2018-02-18 12:21 | PQF ---
PROVIDER RESPONSE TEXT: Pulmonary embolism was r/u REVIEWER QUERY TEXT: Present On Admission It is unclear whether a diagnosis was present on admission. Your help is needed. Please clarify the POA status of suspected pulmonary embolism and suspected vasculitis. Such as: -- Present on admission -- Not present on admission The patient's Clinical Indicators include: Discharge summary documented suspected pulmonary embolism and suspected vasculitis. Query created by: Oksana Soares on 02/18/2018 11:58 AM Electronically signed by: Nicola Richter MD 02/18/2018 12:19 PM
== END 2018-02-16 14:40 | disposition home or self-care (01) | DRG 516 ==
LOC: H.ER 09:55 → H.ERHOLD 13:38 → H.TEL 16:38 → MERGE 02-03 12:38 → OBSVTOIN 02-03 12:38
PROVIDERS: ADMIT Internal Medicine; ATTEND Internal Medicine
PROC: 03BS0ZX Excision of Right Temporal Artery, Open Approach, Diagnostic (ICD-10-PCS; principal; 2018-02-15 07:45)
DX: M32.9 Systemic lupus erythematosus, unspecified (principal); I13.0 Hypertensive heart and chronic kidney disease with heart failure and stage 1 through stage 4 chronic kidney disease, or unspecified chronic kidney disease; I50.22 Chronic systolic (congestive) heart failure; J44.9 Chronic obstructive pulmonary disease, unspecified; Z96.653 Presence of artificial knee joint, bilateral; G47.33 Obstructive sleep apnea (adult) (pediatric); G43.809 Other migraine, not intractable, without status migrainosus; M31.6 Other giant cell arteritis; N18.9 Chronic kidney disease, unspecified; G40.909 Epilepsy, unspecified, not intractable, without status epilepticus; R07.89 Other chest pain; F41.9 Anxiety disorder, unspecified; K29.70 Gastritis, unspecified, without bleeding; F32.9 Major depressive disorder, single episode, unspecified; E78.00 Pure hypercholesterolemia, unspecified; M81.0 Age-related osteoporosis without current pathological fracture; E66.01 Morbid (severe) obesity due to excess calories; Z68.38 Body mass index [BMI] 38.0-38.9, adult; M06.9 Rheumatoid arthritis, unspecified; H54.8 Legal blindness, as defined in USA; R79.1 Abnormal coagulation profile; R00.0 Tachycardia, unspecified; E03.9 Hypothyroidism, unspecified